=== PATIENT | female | born 1955 | race Caucasian/White ===

== ENCOUNTER → 2016-10-14 | Outpatient (CLI) | payer BC ==
[~2016-10-14] MED LIST: ALBUAER2 INH; ASCO10003 PO; ASPI81TA28 PO; ATOR-26 PO; B-COCAP2 PO; CALCTAB65 PO; CLOP1TAB15 PO; LEVO100T PO; LISI2.5T5 PO; LOSA50TA6 PO; METO50TA16 PO; METO50TA7 PO; MULTTAB58 PO; NAPR1TAB9 PO; NTRGSL/4 UT; OMEG10007 PO; PLAVIX75 PO; SERT1TAB68 PO; SERT50TA PO
[2016-10-14 13:17] LABS: CHOLESTEROL/HDL RATIO 3.6
== END | disposition home or self-care (01) ==
LOC: C.LABPVFM 09:25
PROVIDERS: ATTEND Internal Medicine Cardiovascular Disease
DX: E78.00 Pure hypercholesterolemia, unspecified (principal)

== ENCOUNTER → 2016-10-20 | Outpatient (CLI) | payer BC ==
[2016-10-20 12:53] LABS: BLOOD UREA NITROGEN 16 mg/dl (7-18); CALCIUM 9.5 mg/dl (8.5-10.1); CARBON DIOXIDE 30 mmol/L (21-32); CHLORIDE 106 mmol/L (98-107); CREATININE 0.93 mg/dl (0.60-1.20); GLUCOSE 103 mg/dl (70-99); POTASSIUM 4.5 mmol/L (3.5-5.1); SODIUM 140 mmol/L (136-145)
== END | disposition home or self-care (01) ==
LOC: C.LABPVFM 10:42
PROVIDERS: ATTEND Nurse Practitioner
DX: E03.9 Hypothyroidism, unspecified (principal); R94.30 Abnormal result of cardiovascular function study, unspecified

== ENCOUNTER → 2017-02-16 | Day surgery (SDC) | payer BC ==
[2017-02-05 11:32] VITALS: Ht 163.8 cm; Wt 79.5 kg
[~2017-02-16] VITALS: Ht 163.8 cm; Wt 79.5 kg
[~2017-02-16] MED LIST changes: -CALCTAB65 PO; +LIDOCAINE HCL 2% 2 ML VIAL (20MG/ML) ONE; -LISI2.5T5 PO; -METO50TA7 PO; +MIDAZOLAM HCL 1 MG/ML 2ML VIAL ONE; -OMEG10007 PO; -PLAVIX75 PO; +PROPOFOL IV EMULSION 10 MG/ML 20 ML VIAL IV ONE; -SERT1TAB68 PO; +SODIUM CHLORIDE 0.9% 500ML 500 ML IV ONE
--- NOTE | 2017-02-16 11:13 | Endo History and Physical ---
History & Physical Date of Service: Feb 16, 2017. Chief Complaint: Screening Referring Physician: DAVID Aguilar History of Present Illness 62 yo CF who presents for screening colonoscopy. Past Surgical History Hx Cardiac Surgery: Yes (HEART CATH, STENT X1) Hx Internal Defibrillator: No Hx Pacemaker: No Hx Abdominal Surgery: No Hx of Implantable Prosthesis: No Hx Post-Op Nausea and Vomiting: No Hx Cancer Surgery: No Hx Thoracic Surgery: No Hx Orthopedic: No Hx Urinary Tract Surgery: No Family History None Social History Smoking Status: Former Smoker Hx Substance Use: No Hx Alcohol Use: Yes (1 GLASS WINE DAILY) Allergies Coded Allergies: Lisinopril (Verified Allergy, Unknown, COUGH, 02/05/17) Nickel (Verified Allergy, Unknown, SKIN IRRITATION, 02/05/17) Sulfa Antibiotics (Verified Allergy, Unknown, PT DOESN'T REMEMBER REACTION , 02/05/17) Current Medications Reported Home Medications Medications Dose Route/Sig Max Daily Dose Days Date Category Lopressor (Metoprolol Tartrate) 50 Mg Tab 50 Mg PO QAM 02/05/17 Reported Plavix (Clopidogrel Bisulfate) 75 Mg Tab 75 Mg PO QAM 02/05/17 Reported Cozaar (Losartan Potassium) 50 Mg Tab 50 Mg PO QAM 02/05/17 Reported Zoloft (Sertraline Hcl) 50 Mg Tab 50 Mg PO QAM 02/05/17 Reported Aleve (Naproxen) 220 Mg Tab 2 Tabs PO QAM 02/01/15 Reported Nitrostat (Nitroglycerin) 0.4 Mg Tab 0.4 Mg UT UD PRN 02/01/15 Reported Ventolin (Albuterol) Inh 2 Puffs INH QID PRN 01/29/15 Reported Lipitor (Atorvastatin Calcium) 80 Mg Tab 80 Mg PO QAM 01/29/15 Reported Synthroid (Levothyroxine Sodium) 100 Mcg Tab 100 Mcg PO QAM 11/07/13 Reported Aspirin Ec (Aspirin) 81 Mg Tab 81 Mg PO QAM 11/07/13 Reported Multivitamin (Multiple Vitamin) 1 Tab Tab 1 Tab PO QAM 11/07/13 Reported Vitamin C (Ascorbic Acid) 1,000 Mg Tab 1,000 Mg PO QAM 11/07/13 Reported Nephrocaps (Vitamin B Complex/Vit C/Folic Acid) 1 Cap Cap 1 Cap PO QAM 11/07/13 Reported Vital Signs Weight (Kilograms): 79.55 Height (Feet): 5 Height (Inches): 4.5 Date Time Temp Pulse Resp B/P (MAP) Pulse Ox O2 Delivery O2 Flow Rate FiO2 02/16/17 10:06 36.8 76 16 127/68 (87) 94 Room Air Physical Exam General Appearance: WD/WN, no apparent distress Respiratory/Chest: Auscultation: breath sounds normal Cardiovascular: Heart Auscultation: RRR Abdomen: Bowel Sounds: normal Inspection & Palpation: soft, non-distended, no tenderness, guarding & rebound Assessment and Plan Assessment: 62 yo CF who presents for screening colonoscopy. Plan: Proceed with colonoscopy.
--- NOTE | 2017-02-16 11:38 | Discharge Instructions ---
Endoscopy Patient Instructions Date / Procedure(s) Performed Feb 16, 2017. Colonoscopy Allergy Information Coded Allergies: Lisinopril (Verified Allergy, Unknown, COUGH, 02/05/17) Nickel (Verified Allergy, Unknown, SKIN IRRITATION, 02/05/17) Sulfa Antibiotics (Verified Allergy, Unknown, PT DOESN'T REMEMBER REACTION , 02/05/17) Discharge Date / Findings Feb 16, 2017. Colon polyps Rectal polyps Internal hemorrhoids Medication Instructions Stopped Medication(s): Patient was told to stop plavix but she hasn't taken anything this am. OK to resume all medications today as prescribed Reported Home Medications Medications Dose Route/Sig Max Daily Dose Days Date Category Lopressor (Metoprolol Tartrate) 50 Mg Tab 50 Mg PO QAM 02/05/17 Reported Plavix (Clopidogrel Bisulfate) 75 Mg Tab 75 Mg PO QAM 02/05/17 Reported Cozaar (Losartan Potassium) 50 Mg Tab 50 Mg PO QAM 02/05/17 Reported Zoloft (Sertraline Hcl) 50 Mg Tab 50 Mg PO QAM 02/05/17 Reported Aleve (Naproxen) 220 Mg Tab 2 Tabs PO QAM 02/01/15 Reported Nitrostat (Nitroglycerin) 0.4 Mg Tab 0.4 Mg UT UD PRN 02/01/15 Reported Ventolin (Albuterol) Inh 2 Puffs INH QID PRN 01/29/15 Reported Lipitor (Atorvastatin Calcium) 80 Mg Tab 80 Mg PO QAM 01/29/15 Reported Synthroid (Levothyroxine Sodium) 100 Mcg Tab 100 Mcg PO QAM 11/07/13 Reported Aspirin Ec (Aspirin) 81 Mg Tab 81 Mg PO QAM 11/07/13 Reported Multivitamin (Multiple Vitamin) 1 Tab Tab 1 Tab PO QAM 11/07/13 Reported Vitamin C (Ascorbic Acid) 1,000 Mg Tab 1,000 Mg PO QAM 11/07/13 Reported Nephrocaps (Vitamin B Complex/Vit C/Folic Acid) 1 Cap Cap 1 Cap PO QAM 11/07/13 Reported Provider Instructions Activity Restrictions - No exercising or heavy lifting for 24 hours. - Do not drink alcohol the day of the procedure. - Do not drive a car or operate machinery until the day after the procedure. - Do not make any important decisions or sign important papers in 24 hours after the procedure. Following Day: - Return to full activity which may include returning to work/school. Diet Start your diet with liquids and light foods (jello, soup, juice, toast). Then eat your usual diet if not nauseated. Treatment For Common After Affects For mild abdominal pain, bloating, or excessive gas: - Rest - Eat lightly - Lie on right side Follow-Up Information Follow-up with DAVID Aguilar as scheduled Anesthesia Information What You Should Know You have had a procedure that required some medicine to reduce anxiety and discomfort. This treatment is called moderate sedation. After receiving the treatment, you may be sleepy, but you will be able to breathe on your own. The effects of the treatment may last for several hours. Follow these instructions along with Activity/Diet recommendations noted above: * Do NOT do anything where dizziness or clumsiness would be dangerous. * Rest quietly at home today, then you can be up and about tomorrow. * Have a responsible person stay with you the rest of today. * You may have had an I.V. today. If so, you may take the dressing off later today. Recommendations Call your doctor if: * Trouble breathing * Continuous vomiting for more than 24 hours * Temperature above 101 degrees * Severe abdominal pain or bloating * Pain not relieved by pain medicine ordered * There is increased drainage or redness from any incision * A large amount of rectal bleeding greater than 2-3 tablespoons. (If you had a polyp/s removed or have hemorrhoids, a small amount of blood - from the rectum is to be expected.) * You have any unanswered questions or concerns. IN THE EVENT OF A SERIOUS EMERGENCY, GO TO THE NEAREST EMERGENCY ROOM Your discharge instructions were prepared by provider Saravanan Greene. Patient Instructions Signature Page Maureen Vang Patient (or Guardian) Signature/Date: I have read and understand the instructions given to me by my caregivers. Caregiver/RN/Doctor Signature/Date: The above-named patient and/or guardian has received patient instructions on this date. + Original Patient Signature Page (only) stays with chart. Please make copy for patient.
--- NOTE | 2017-02-16 11:46 | GI REPORT ---
Procedure Date: 02/16/2017 11:17 AM Procedure: Colonoscopy Indications: Screening for colorectal malignant neoplasm Medicines: Monitored Anesthesia Care Complications: No immediate complications. Estimated Blood Loss: Estimated blood loss: none. Procedure: Pre-Anesthesia Assessment: - Prior to the procedure, a History and Physical was performed, and patient medications and allergies were reviewed. The patient's tolerance of previous anesthesia was also reviewed. The risks and benefits of the procedure and the sedation options and risks were discussed with the patient. All questions were answered, and informed consent was obtained. Prior Anticoagulants: The patient last took aspirin 1 day and Plavix (clopidogrel) 7 days prior to the procedure. ASA Grade Assessment: III - A patient with severe systemic disease. After reviewing the risks and benefits, the patient was deemed in satisfactory condition to undergo the procedure. After I obtained informed consent, the scope was passed under direct vision. Throughout the procedure, the patient's blood pressure, pulse, and oxygen saturations were monitored continuously. The scope was introduced through the anus and advanced to the terminal ileum. The colonoscopy was performed without difficulty. The patient tolerated the procedure well. The quality of the bowel preparation was good. The terminal ileum, ileocecal valve, appendiceal orifice, and rectum were photographed. Findings: Two sessile polyps were found in the descending colon and in the ascending colon. The polyps were 3 to 4 mm in size. These polyps were removed with a cold snare. Resection and retrieval were complete. Two sessile polyps were found in the rectum. The polyps were 2 to 3 mm in size. These polyps were removed with a cold biopsy forceps. Resection and retrieval were complete. Non-bleeding internal hemorrhoids were found during retroflexion. The hemorrhoids were small. Impression: - Two 3 to 4 mm polyps in the descending colon and in the ascending colon, removed with a cold snare. Resected and retrieved. - Two 2 to 3 mm polyps in the rectum, removed with a cold biopsy forceps. Resected and retrieved. - Non-bleeding internal hemorrhoids. Recommendation: - Resume previous diet. - Continue present medications. - Repeat colonoscopy for surveillance based on pathology results. - Return to primary care physician as previously scheduled. Saravanan Greene DO 02/16/2017 11:46:18 AM This report has been signed electronically. Note Initiated On: 02/16/2017 11:17 AM I attest to the content of the Intraoperative Record and orders documented therein, exceptions below
--- NOTE | 2017-02-16 12:07 | Anesthesiology Progress Note ---
Anesthesia Post Op Note Date & Time Feb 16, 2017 at 12:07 Vital Signs Pain Intensity: 0 Vital Signs Past 12 Hours Date Time Temp Pulse Resp B/P (MAP) Pulse Ox O2 Delivery O2 Flow Rate FiO2 02/16/17 11:55 73 20 135/74 (94) 96 Room Air 02/16/17 11:43 65 20 98/51 (67) 95 Room Air 02/16/17 10:06 36.8 76 16 127/68 (87) 94 Room Air Notes Mental Status: alert / awake / arousable, participated in evaluation Pt Amnestic to Procedure: Yes Nausea / Vomiting: adequately controlled Pain: adequately controlled Airway Patency, RR, SpO2: stable & adequate BP & HR: stable & adequate Hydration State: stable & adequate Anesthetic Complications: no major complications apparent
[2017-02-16 12:11] VITALS: BP 149/74; PULSE 71; O2SAT 95
== END | disposition home or self-care (01) ==
LOC: C.GI 09:44
PROVIDERS: ATTEND Internal Medicine
DX: Z12.11 Encounter for screening for malignant neoplasm of colon (principal); D12.2 Benign neoplasm of ascending colon; D12.4 Benign neoplasm of descending colon; K62.1 Rectal polyp; K64.8 Other hemorrhoids; Z87.891 Personal history of nicotine dependence; Z79.02 Long term (current) use of antithrombotics/antiplatelets; Z79.82 Long term (current) use of aspirin; Z79.899 Other long term (current) drug therapy

== ENCOUNTER → 2017-02-26 | Outpatient (CLI) | payer BC ==
[~2017-02-26] MED LIST changes: -LIDOCAINE HCL 2% 2 ML VIAL (20MG/ML) ONE; -MIDAZOLAM HCL 1 MG/ML 2ML VIAL ONE; -PROPOFOL IV EMULSION 10 MG/ML 20 ML VIAL IV ONE; -SODIUM CHLORIDE 0.9% 500ML 500 ML IV ONE
--- NOTE | 2017-02-27 07:57 | MAMMOGRAPHY REPORT ---
BILATERAL DIGITAL SCREENING MAMMOGRAM TOMOSYNTHESIS WITH CAD: 02/26/2017 CLINICAL HISTORY: Routine screening. Patient has no complaints. TECHNIQUE: Breast tomosynthesis in addition to standard 2D mammography was performed. Current study was also evaluated with a Computer Aided Detection (CAD) system. COMPARISON: Comparison is made to exams dated: 02/17/2016 mammogram, 02/12/2015 mammogram, 04/28/2013 m ammogram, 02/20/2013 mammogram, 02/20/2012 mammogram, and 02/06/2011 mammogram - [facility]ter. BREAST COMPOSITION: The tissue of both breasts is heterogeneously dense, which may obscure small mas ses. FINDINGS: There is architectural distortion in the 12:00/central right breast, at the site of prior excisional biopsy which yielded benign pathology. There are a few benign-appearing calcifications bi laterally. No suspicious mass, architectural distortion or cluster of microcalcifications is seen. IMPRESSION: ACR BI-RADS CATEGORY 1: NEGATIVE There is no mammographic evidence of malignancy. A 1 year screening mammogram is recommended. The pa tient will receive written notification of the results. Approximately 10% of breast cancers are not detected with mammography. A negative mammographic report should not delay biopsy if a clinically suggestive mass is present. Juanita Hendrix M.D. ay/:02/26/2017 16:05:34 [employer] Operator Concentrate: Luma DARLING(Esvin)(Nettie)(BD), [facility] letter sent: Normal 1/2 BI-RADS Code: ACR BI-RADS Category 1: Negative
== END | disposition home or self-care (01) ==
LOC: C.MAMM 13:09
PROVIDERS: ATTEND Nurse Practitioner
DX: Z12.31 Encounter for screening mammogram for malignant neoplasm of breast (principal)

== ENCOUNTER → 2017-05-26 | Outpatient (CLI) | payer BC ==
[2017-05-26 13:23] LABS: CHOLESTEROL/HDL RATIO 3.2
== END | disposition home or self-care (01) ==
LOC: C.LABPVFM 09:34
PROVIDERS: ATTEND Internal Medicine Cardiovascular Disease
DX: I25.10 Atherosclerotic heart disease of native coronary artery without angina pectoris (principal)

== ENCOUNTER 2017-07-23 13:48 | Emergency (ER) | payer BC ==
[~2017-07-23] VITALS: Ht 162.6 cm; Wt 80.0 kg
[2017-07-23 13:56] VITALS: Ht 162.6 cm; Wt 80.0 kg
[2017-07-23] MEDS ORDERED: KETOROLAC TROMETHAMINE 30 MG/ML VIAL IV STA (14:16)
[2017-07-23] MEDS ORDERED: CEFTRIAXONE SOD INJ 1 GM ADDVIAL IV STA (14:16)
--- NOTE | 2017-07-23 15:02 | DIAGNOSTIC IMAGING REPORT ---
R FINGER(S) MIN 2 VIEWS ROUTINE CLINICAL HISTORY: RIGHT THUMB, CELLULITIS infection COMPARISON: None. DISCUSSION: Generalized soft tissue edema. Subtle lucency assuming a triangular configuration base distal phalanx of the thumb. This is felt to be a nonacute finding. No bony destructive process is appreciated. No abnormal periosteal reaction. IMPRESSION: Soft tissue edema. No acute bony abnormality. No evidence for a bony destructive process. The above report was generated using voice recognition software. It may contain grammatical, syntax or spelling errors. Electronically signed by: Juan R Garrison M.D. 07/23/2017 3:01 PM Dictated Date/Time: 07/23/2017 3:00 PM
[2017-07-23 15:06] LABS: BASO % 0.1 %; BASO ABS # 0.02 K/uL (0-0.2); EOS % 0.1 %; EOS ABS # 0.01 K/uL (0-0.5); HEMOGLOBIN 13.8 g/dL (12.0-16.0); IG# 0.05 K/uL (0.00-0.02); LYMPH % 3.8 %; LYMPH ABS # 0.67 K/uL (1.2-3.4); MEAN CELL VOLUME 93.5 fL (80-100); MEAN CORPUSCULAR HEMOGLOBIN 32.2 pg (25-34); MEAN CORPUSCULAR HGB CONC 34.5 g/dl (32-36); MEAN PLATELET VOLUME 9.7 fL (7.4-10.4); MONO % 7.2 %; MONO ABS # 1.25 K/uL (0.11-0.59); NEUT % 88.5 %; NEUT ABS # 15.41 K/uL (1.4-6.5); PLATELET COUNT 224 K/uL (130-400); RED CELL DISTRIBUTION WIDTH CV 13.6 % (11.5-14.5); RED CELL DISTRIBUTION WIDTH SD 46.1 fL (36.4-46.3); WHITE BLOOD COUNT 17.41 K/uL (4.8-10.8)
[2017-07-23 15:25] LABS: CREATININE 1.09 mg/dl (0.60-1.20); POTASSIUM 3.8 mmol/L (3.5-5.1)
[2017-07-23] MEDS ORDERED: DOXYCYCLINE HYCLATE 100 MG CAP PO ONE (16:15)
[2017-07-23] MEDS ORDERED: HYDROCODONE/ACETAMOPHEN 5/325MG TAB PO STA (16:15)
--- NOTE | 2017-07-23 16:29 | EMERGENCY ROOM VISIT NOTE ---
History First contact with patient: 14:03 Chief Complaint: INFECTION Stated Complaint: INFECTED THUMB, 101 FEVER History of Present Illness Patient is a [id number] 62-year-old white female referred to the emergency department from [facility] for a suspected right thumb infection. largely provides the history. He relates that the patient had developed some pain and swelling in the finger pad of her right thumb yesterday. He states that he noticed a small raised area that he thought may have been an insect bite or a splinter. He poked the area with a pin, but got only bloody drainage, then cleansed the area with hydrogen peroxide. The patient's symptoms markedly worsened overnight. She had difficulty sleeping due to pain. She tried taking ibuprofen, naproxen, and this morning took one Tylenol with Codeine tablet, all with minimal relief of her pain. She presently rates her discomfort a 9/10. She now notes swelling of her entire right thumb, pain that radiates towards her wrist, and pain with range of motion of her thumb or her wrist. She was seen at [facility], and reportedly had a fever of 101F orally while she was there. The provider there elected to send her to the emergency department for further care and evaluation. The patient denies any prior history of skin infections, abscesses or MRSA. She reports an allergy to sulfa medications, but she cannot recall what type of reaction she had. Review of Systems Review of systems as per HPI. All other systems reviewed were negative. 10 systems reviewed. Past Medical/Surgical History Medical Problems: (1) Acute bronchitis (2) Acute bronchitis (3) Bronchitis (4) CAD (coronary artery disease), q[place]angin coronary artery (5) CAD S/P percutaneous coronary angioplasty (6) Fever (7) Hyperlipidemia (8) Hypothyroidism Social History Smoking Status: Never Smoker Marital Status: Occupation Status: employed Current/Historical Medications Scheduled Ascorbic Acid (Vitamin C), 1,000 MG PO QAM Aspirin (Aspirin Ec), 81 MG PO QAM Atorvastatin (Lipitor), 80 MG PO QAM Cephalexin Monohydrate (Keflex), 500 MG PO QID Clopidogrel (Plavix), 75 MG PO QAM Doxycycline Monohydrate (Monodox), 100 MG PO BID Levothyroxine Sodium (Synthroid), 100 MCG PO QAM Losartan Potassium (Cozaar), 50 MG PO QAM Metoprolol Tartrate (Lopressor) (Lopressor), 50 MG PO QAM Multiple Vitamin (Multivitamin), 1 TAB PO QAM Naproxen (Aleve), 2 TABS PO QAM Sertraline Hcl (Zoloft), 50 MG PO QAM Vitamin B Cmplx/Vitc/Folic Ac (Nephrocaps), 1 CAP PO QAM Scheduled PRN Albuterol (Ventolin), 2 PUFFS INH QID PRN for Wheezing Hydrocodone/Acetaminophen 5MG/325MG (Valmora 5MG/325MG), 1-2 TABLETS PO Q4 PRN for Pain Nitroglycerin (Nitrostat), 0.4 MG UT UD PRN for Chest Pain Physical Exam Vital Signs Date Time Temp Pulse Resp B/P (MAP) Pulse Ox O2 Delivery O2 Flow Rate FiO2 07/23/17 17:42 98 14 153/61 90 07/23/17 16:36 38.3 07/23/17 15:30 86 14 130/61 92 Room Air 07/23/17 15:02 94 12 126/67 91 Room Air 07/23/17 15:02 94 12 126/67 91 Room Air 07/23/17 13:56 37.3 99 20 92 Room Air Physical Exam CONSTITUTIONAL: Patient is a well-appearing although slightly sedate 62-year- old white female who is awake and in no apparent distress. She appears to fall sleep easily, and has some intermittent slurring of speech. Her does most of the talking for her. MUSCULOSKELETAL: Examination of the right thumb show a circumferential soft tissue swelling, with erythema, induration and warmth of the palmar aspect of the thumb, particularly the finger pad. There is a very tiny open area at the IP crease, but no active drainage. There is no fluctuance appreciated. The patient has tenderness to palpation of the entire thumb. She can flex and extend slightly, limited by discomfort and soft tissue swelling. Tenderness extends to the MCP joint. The patient has erythema extending to the base of the thumb at the wrist, and has lymphangitic streaking noted to the right antecubital space. The right upper extremity is neurovascularly intact. LYMPH: No lymphadenopathy. Medical Decision & Procedures ER Provider Diagnostic Interpretation: R FINGER(S) MIN 2 VIEWS ROUTINE CLINICAL HISTORY: RIGHT THUMB, CELLULITIS infection COMPARISON: None. DISCUSSION: Generalized soft tissue edema. Subtle lucency assuming a triangular configuration base distal phalanx of the thumb. This is felt to be a nonacute finding. No bony destructive process is appreciated. No abnormal periosteal reaction. IMPRESSION: Soft tissue edema. No acute bony abnormality. No evidence for a bony destructive process. Laboratory Results 07/23/17 14:45 Red Blood Count 4.28, Mean Corpuscular Volume 93.5, Mean Corpuscular Hemoglobin 32.2, Mean Corpuscular Hemoglobin Concent 34.5, Mean Platelet Volume 9.7, Neutrophils (%) (Auto) 88.5, Lymphocytes (%) (Auto) 3.8, Monocytes (%) (Auto) 7.2, Eosinophils (%) (Auto) 0.1, Basophils (%) (Auto) 0.1, Neutrophils # (Auto) 15.41, Lymphocytes # (Auto) 0.67, Monocytes # (Auto) 1.25, Eosinophils # (Auto) 0.01, Basophils # (Auto) 0.02 07/23/17 14:45 Test 07/23/17 14:45 White Blood Count 17.41 K/uL (4.8-10.8) Red Blood Count 4.28 M/uL (4.2-5.4) Hemoglobin 13.8 g/dL (12.0-16.0) Hematocrit 40.0 % (37-47) Mean Corpuscular Volume 93.5 fL (80-100) Mean Corpuscular Hemoglobin 32.2 pg (25-34) Mean Corpuscular Hemoglobin Concent 34.5 g/dl (32-36) Platelet Count 224 K/uL (130-400) Mean Platelet Volume 9.7 fL (7.4-10.4) Neutrophils (%) (Auto) 88.5 % Lymphocytes (%) (Auto) 3.8 % Monocytes (%) (Auto) 7.2 % Eosinophils (%) (Auto) 0.1 % Basophils (%) (Auto) 0.1 % Neutrophils # (Auto) 15.41 K/uL (1.4-6.5) Lymphocytes # (Auto) 0.67 K/uL (1.2-3.4) Monocytes # (Auto) 1.25 K/uL (0.11-0.59) Eosinophils # (Auto) 0.01 K/uL (0-0.5) Basophils # (Auto) 0.02 K/uL (0-0.2) RDW Standard Deviation 46.1 fL (36.4-46.3) RDW Coefficient of Variation 13.6 % (11.5-14.5) Immature Granulocyte % (Auto) 0.3 % Immature Granulocyte # (Auto) 0.05 K/uL (0.00-0.02) Erythrocyte Sedimentation Rate 55 mm/hr (0-21) Anion Gap 6.0 mmol/L (3-11) Est Creatinine Clear Calc Drug Dose 55.5 ml/min Estimated GFR () 63.5 Estimated GFR (Non- 54.7 BUN/Creatinine Ratio 14.9 (10-20) Calcium Level 9.0 mg/dl (8.5-10.1) C-Reactive Protein 5.02 mg/dl (0-0.29) Medications Administered Medications (Trade) Dose Ordered Sig/Ravin Route Start Time Stop Time Status Last Admin Dose Admin Ceftriaxone Sodium (Rocephin Inj) 1 gm NOW STAT IV 07/23/17 14:16 07/23/17 14:19 DC 07/23/17 14:59 1 GM Ketorolac Tromethamine (Toradol Inj) 30 mg NOW STAT IV 07/23/17 14:16 07/23/17 14:19 DC 07/23/17 14:59 30 MG Doxycycline Hyclate (Vibramycin Cap) 100 mg ONE ONCE PO 07/23/17 16:15 07/23/17 16:16 DC 07/23/17 17:18 100 MG Acetaminophen/ Hydrocodone Bitart (Valmora 5/325 Tab) 1 tab NOW STAT PO 07/23/17 16:15 07/23/17 16:16 DC 07/23/17 17:20 1 TAB Acetaminophen (Tylenol Tab) 650 mg NOW STAT PO 07/23/17 16:44 07/23/17 16:46 DC 07/23/17 17:19 650 MG ED Course The patient was seen and examined as above. Her old records were reviewed. IV lock was initiated. She was medicated with Toradol 30 mg IV for discomfort, and given Rocephin 1 g IV empirically. CBC with differential, BMP, sedimentation rate and CMP were drawn. X-rays of the right thumb were obtained , noting soft tissue only without acute bony abnormality. The patient's laboratory studies did note a leukocytosis of 17,000, with left shift and bandemia. Sedimentation rate 55, CRP is 5.02. Electrolytes are within normal limits. The patient was reassessed. She reported little relief of her discomfort with the IV Toradol, and was given one Valmora tablet orally for discomfort. At this time I did recheck the patient's temperature and she was febrile at 38.3C orally. She was given acetaminophen 650 mg orally with her Valmora for the antipyretic effect. After reviewing the patient with attending physician, she will also be placed on doxycycline for MRSA coverage. Treatment recommendations were discussed with the patient and her at length. At this point, as she has yet to have been treated with any antibiotics , it was felt reasonable that she was a good candidate for outpatient antibiotic therapy. She was encouraged to apply warm compresses, elevate the arm for pain and swelling, and will be placed on Keflex and doxycycline. There is no obvious abscess that appears amenable to I&D, and no drainage to culture at this time. Her exam is not consistent with an infectious tenosynovitis. She was advised to return to the emergency department or follow-up with her primary care physician in 48 hours for a recheck, return to the ED sooner for worsening symptoms. They expressed understanding of this and were agreeable. The patient was discharged home with her in stable condition. Medical Decision See ED Course. [facility] Monitoring Program Search Results: patient reviewed within database, no issues identified Medication Reconcilliation Current Medication List: was personally reviewed by me Blood Pressure Screening Patient's blood pressure: Normal blood pressure Blood pressure disposition: Did not require urgent referral Impression Primary Impression: Cellulitis of right thumb Departure Information Prescriptions Hydrocodone/Acetaminophen 5MG/325MG (Valmora 5MG/325MG) Tab 1-2 TABLETS PO Q4 Y for Pain, #15 TAB For Initial Treatment Prov: Cindy Khan PA 07/23/17 Doxycycline Monohydrate (Monodox) 100 Mg Cap 100 MG PO BID, #20 CAP Prov: Cindy Khan PA 07/23/17 Cephalexin Monohydrate (KEFLEX) 500 Mg Cap 500 MG PO QID, #40 CAP Prov: Cindy Khan PA 07/23/17 Referrals Carmen Flores C.R.N.P (PCP) Patient Instructions My [facility] Additional Instructions DO NOT drive, drink alcohol, operate machinery, or perform dangerous activities today. You were given medications in the ER that can affect your ability to safely function or operate a vehicle. Hydrocodone/Acetaminophen (Valmora) 5/325 mg: Take 1-2 pills every four hours for breakthrough pain. Avoid alcohol, operating machinery or dangerous equipment, working on ladders or roofs, DRIVING, or situations where being under the influence may be dangerous. It is recommended to use an [id number] stool softener such as Colace, 100mg twice daily while taking this medication to avoid constipation. Cephalexin(Keflex) 500mg: Take one pill four times daily for 10 days for your skin infection. All antibiotics can cause diarrhea. If this occurs and you feel worse or it does not resolve in 1-2 days follow up with your doctor or return to the Emergency Department as this could be signs of serious underlying problems. Any medication can cause an allergic reaction, stop the pills immediately and return to the ER for rash, hives, breathing difficulties, or swelling. Doxycycline 100mg: Take one pill twice daily for seven days for your infection. Take with food, but avoid dairy. Avoid prolonged sun exposure since this medication makes you temporarily more susceptible to sunburns. All antibiotics can cause diarrhea. If this occurs and you feel worse or it does not resolve in 1-2 days follow up with your doctor or return to the Emergency Department as this could be signs of serious underlying problems. Any medication can cause an allergic reaction, stop the pills immediately and return to the ER for rash, hives, breathing difficulties, or swelling. Ibuprofen(Motrin, Advil) may be used for fever or pain. Use 600mg every six hours as needed. Take with food. Avoid using more than 2400mg in a 24 hour period. Do not use 2400mg per day for more than three consecutive days without physician direction. Prolonged inappropriate use can lead to stomach upset or ulcers. (AND/OR) Acetaminophen(Tylenol) may be used for fever or pain. Use 1000mg every six hours as needed. Avoid using more than 3000mg in a 24 hour period. Warm compresses to the affected area 4 times daily for 15-20 minutes. Elevate for pain and swelling. Rest and drink plenty of fluids. Continue current medications. Return to the ER for severe pain, persistent fevers, spreading redness, or any worsening of your condition. Follow up with your primary physician in 2 days for a recheck of the current condition. If you are unable to be rechecked at your primary care physician's office by Sunday, return to the ED for recheck.
[2017-07-23] MEDS ORDERED: HYDR-5688 PO (16:35)
[2017-07-23] MEDS ORDERED: DOXY100C76 PO (16:35)
[2017-07-23] MEDS ORDERED: CEPH500C2 PO (16:35)
[2017-07-23 16:36] VITALS: TEMP 38.3
[2017-07-23] MEDS ORDERED: ACETAMINOPHEN 325 MG TAB PO STA (16:44)
[2017-07-23 17:42] VITALS: BP 153/61; PULSE 98; O2SAT 90
[2017-07-24] MEDS ORDERED: B-CO1CAP17 PO (11:17)
[2017-07-24] MEDS ORDERED: VNTHFA/IN INH (11:17)
[2017-07-24] MEDS ORDERED: METO-452 PO (13:22)
== END 2017-07-23 17:30 | disposition home or self-care (01) ==
LOC: C.EDB 13:50 → C.EDA 17:30
DX: L03.011 Cellulitis of right finger (principal); I25.10 Atherosclerotic heart disease of native coronary artery without angina pectoris; E78.5 Hyperlipidemia, unspecified; E03.9 Hypothyroidism, unspecified; Z79.82 Long term (current) use of aspirin

== ENCOUNTER 2017-07-24 10:01 | Inpatient (IN) | payer BC ==
[~2017-07-24] VITALS: Ht 162.6 cm; Wt 80.4 kg
[2017-07-24] VITALS (7 sets, daily range): BP systolic 121–123; BP diastolic 63–71; PULSE 85–105; TEMP 37.9–39.2; O2SAT 88–97; Ht 162.6 cm; Wt 80.4 kg
[~2017-07-24 10:01] MED LIST changes: +CEPH500C2 PO; +DOXY100C76 PO; +HYDR-5688 PO
[2017-07-24] MEDS ORDERED: MoRPHine SULFATE 4 MG/ML 1 ML CARP\\VIAL IV STA (10:21)
[2017-07-24] MEDS ORDERED: ONDANSETRON INJ 2 MG/ML 2 ML VIAL IV STA (10:21)
[2017-07-24] MEDS ORDERED: PIPERACILLIN/TAZOBACTAM 4.5 GM/100ML D5W IV STA (10:25)
[2017-07-24] MEDS ORDERED: DAPTOmycin IV 480 MG in SODIUM CHLORIDE 0.9% 50ML 50 ML IV ONE (10:30)
[2017-07-24] MEDS ORDERED: SODIUM CHLORIDE 0.9% 1000ML 1,000 ML IV ONE (10:30)
[2017-07-24 10:59] LABS: BASO % 0.1 %; BASO ABS # 0.02 K/uL (0-0.2); HEMATOCRIT 37.2 % (37-47); HEMOGLOBIN 12.8 g/dL (12.0-16.0); IG# 0.09 K/uL (0.00-0.02); LYMPH % 3.3 %; LYMPH ABS # 0.71 K/uL (1.2-3.4); MEAN CELL VOLUME 92.8 fL (80-100); MEAN CORPUSCULAR HEMOGLOBIN 31.9 pg (25-34); MEAN CORPUSCULAR HGB CONC 34.4 g/dl (32-36); MEAN PLATELET VOLUME 9.6 fL (7.4-10.4); MONO % 4.8 %; MONO ABS # 1.02 K/uL (0.11-0.59); NEUT % 91.4 %; NEUT ABS # 19.39 K/uL (1.4-6.5); PLATELET COUNT 242 K/uL (130-400); RED CELL DISTRIBUTION WIDTH CV 13.6 % (11.5-14.5); RED CELL DISTRIBUTION WIDTH SD 46.5 fL (36.4-46.3); WHITE BLOOD COUNT 21.23 K/uL (4.8-10.8)
[2017-07-24] MEDS ORDERED: B-CO1CAP17 PO (11:17)
[2017-07-24] MEDS ORDERED: VNTHFA/IN INH (11:17)
[2017-07-24 11:21] LABS: CALCIUM 8.7 mg/dl (8.5-10.1); CREATININE 1.08 mg/dl (0.60-1.20); POTASSIUM 3.6 mmol/L (3.5-5.1)
[2017-07-24] MEDS ORDERED: ONDANSETRON INJ 2 MG/ML 2 ML VIAL IV PRN (12:45)
[2017-07-24] MEDS ORDERED: POLYETHYLENE (MIRALAX) 17 GM PACK PO PRN (12:45)
[2017-07-24] MEDS ORDERED: VANCOMYCIN CONSULT ACTIVE PRN (12:45)
[2017-07-24] MEDS ORDERED: MAGNESIUM HYDROXIDE SUSP 30 ML UDC PO PRN (12:45)
[2017-07-24] MEDS ORDERED: PIPERACILL/TAZOBAC CONSULT ACTIVE PRN (12:45)
--- NOTE | 2017-07-24 13:05 | EMERGENCY ROOM VISIT NOTE ---
ED Visit Note First contact with patient: 10:08 Chief Complaint: My infection is worsening. History of Present Illness: Ms. Vang is a 62-year-old white female who ambulates into the ED accompanied by her complaining of worsening sialitis. A she was seen in this emergency department yesterday and was diagnosed with right hand cellulitis with forearm lymphangitis. She was discharged home on Keflex and doxycycline. Patient reports upon awaking this morning she noted increasing pain in her right hand and worsening lymphangitis upper forearm; she reports the redness is spreading outward and is now also over the posterior hand and radiating up the ulnar aspect of the arm. Currently she describes her pain as a combination of sharp, pressure and throbbing. She rates her discomfort 9/10. Her pain is nonradiating. Her pain worsens with all palpation of the thumb, the palmar aspect of the hand predominately over the thenar eminence and flexion and extension of the first MCP and interphalangeal joints. She has not identified any alleviating factors related to the pain. She reports she's been taking her ibuprofen and her prescribed hydrocodone without relief of her discomfort. Associated with her pain she reports she's had some chills and feels like she might of had a fever this morning but did not check her temperature, she had noted that he decreased appetite and some mild numbness throughout the thumb. She also noted a darkening kin lesion over the posterior aspect of the interphalangeal joint/distal phalanx. She denies other skin eruptions, other skin color changes, headache, dizziness, lightheadedness, chest pain, shortness of breath, abdominal pain, nausea, vomiting. Additionally patient's reports that she has been in such severe pain she has not been able to sleep the last 2 nights. Review of Systems: As noted above in history of present illness. All body systems were reviewed and found to be negative as noted above. Past Medical History: As previously noted, bronchitis, coronary artery disease, angioplasty, dyslipidemia, hypothyroidism. Current Medications: Medications Dose Route/Sig Max Daily Dose Days Date Category Dose Instructions Ventolin Hfa (Albuterol) 200 Puffs/97323 Mcg Aers 2-4 Puffs INH Q6H PRN 07/24/17 Reported Nephrocaps (Vitamin B Complex/Vit C/Folic Acid) Cap 1 Cap PO BID 07/24/17 Reported [place] 5MG/325MG (Acetaminophen/Hydrocodone Bitart) Tab 1-2 Tablets PO Q4 PRN 07/23/17 Rx For Initial Treatment Monodox (Doxycycline Monohydrate) 100 Mg Cap 100 Mg PO BID 07/23/17 Rx Keflex (Cephalexin Monohydrate) 500 Mg Cap 500 Mg PO QID 07/23/17 Rx Lopressor (Metoprolol Tartrate) 50 Mg Tab 50 Mg PO QAM 02/05/17 Reported Plavix (Clopidogrel Bisulfate) 75 Mg Tab 75 Mg PO QAM 02/05/17 Reported Cozaar (Losartan Potassium) 50 Mg Tab 50 Mg PO QAM 02/05/17 Reported Zoloft (Sertraline Hcl) 50 Mg Tab 50 Mg PO QAM 02/05/17 Reported Aleve (Naproxen) 220 Mg Tab 2 Tabs PO QAM 02/01/15 Reported Nitrostat (Nitroglycerin) 0.4 Mg Tab 0.4 Mg UT UD PRN 02/01/15 Reported Lipitor (Atorvastatin Calcium) 80 Mg Tab 80 Mg PO QAM 01/29/15 Reported Synthroid (Levothyroxine Sodium) 100 Mcg Tab 100 Mcg PO QAM 11/07/13 Reported Aspirin Ec (Aspirin) 81 Mg Tab 81 Mg PO QAM 11/07/13 Reported Multivitamin (Multiple Vitamin) 1 Tab Tab 1 Tab PO QAM 11/07/13 Reported Vitamin C (Ascorbic Acid) 1,000 Mg Tab 1,000 Mg PO QAM 11/07/13 Reported Allergies to Medications: Lisinopril, sulfa. Social History: Patient is currently employed; she feels safe in her home environment; she denies tobacco use and admits to social alcohol use. Physical Examination: Vital Signs: Date Time Temp Pulse Resp B/P (MAP) Pulse Ox O2 Delivery O2 Flow Rate FiO2 07/24/17 12:20 95 Nasal Cannula 2.0 07/24/17 12:18 78 20 104/52 88 Room Air 07/24/17 10:05 37.5 94 20 105/60 91 Room Air GENERAL: 62-year-old female in moderate distress due to pain, nontoxic-appearing , afebrile and hemodynamically stable. NEUROLOGICAL: Awake, alert and oriented to person, place and time. Answering questions appropriately and following commands. Good hand eye coordination. SKIN: Warm, dry and pink. Right Upper Extremity: No gross bony deformity. No tenderness in the elbow. Mild tenderness over the anterior forearm in the location of her lymphangitis. The hand shows circumferential erythema and edema of the thumb which extends into the palmar aspect of the thumb involving a hyper thenar eminence. There is also some mild erythema and mild swelling over the posterior hand. She does have worsening lymphangitis around the lateral aspects that were defined yesterday. She also has in the dark in color lesion over the posterior aspect of the thumb in the area of the interphalangeal joint and distal flange. HEENT: Atraumatic and normocephalic. PERRLA. Sclera white and conjunctiva pink. No drainage from naris. Oral cavity moist and pink. Pharynx is nonerythematous or edematous. Speech normal. No lymphadenopathy. Trachea midline. No jugular venous distention. BACK: No tenderness over the bony spine. No CVA tenderness. THORAX: Lungs sounds are clear to auscultation and equal bilaterally with symmetrical chest wall. No wheezing, rales or rhonchi. No crepitus, tenderness , subcutaneous air or deformities noted. HEART: Regular rate and rhythm. No gallops, rubs or murmurs are appreciated. ABDOMEN: Flat, soft and nontender. Positive bowel sounds in all quadrants. No guarding, rigidity or organomegaly. RIGHT UPPER EXTREMITY: Please note description of infection under SKIN. No gross bony deformity. Patient does have full range of motion in flexion and extension of the elbow and pronation of the supination of the forearm. She has decreased range of motion due to pain and swelling of the wrist and all movements and the thumb in all movements. The other fingers have full range of motion at the DIP, PIP and interphalangeal joints. She does have decreased sensation in the thumb that she describes as a moderate numbness sensation. The rest of the fingers are sensory intact. Capillary refill is brisk in all fingers including the thumb. ED Course: Patient is assessed as noted above. Patient's medication list was reviewed. Laboratory Testing: Test 07/24/17 10:40 07/24/17 10:59 07/24/17 12:58 Range/Units White Blood Count 21.23 4.8-10.8 K/uL Red Blood Count 4.01 4.2-5.4 M/uL Hemoglobin 12.8 12.0-16.0 g/dL Hematocrit 37.2 37-47 % Mean Corpuscular Volume 92.8 80-100 fL Mean Corpuscular Hemoglobin 31.9 25-34 pg Mean Corpuscular Hemoglobin Concent 34.4 32-36 g/dl Platelet Count 242 130-400 K/uL Mean Platelet Volume 9.6 7.4-10.4 fL Neutrophils (%) (Auto) 91.4 % Lymphocytes (%) (Auto) 3.3 % Monocytes (%) (Auto) 4.8 % Eosinophils (%) (Auto) 0.0 % Basophils (%) (Auto) 0.1 % Neutrophils # (Auto) 19.39 1.4-6.5 K/uL Lymphocytes # (Auto) 0.71 1.2-3.4 K/uL Monocytes # (Auto) 1.02 0.11-0.59 K/uL Eosinophils # (Auto) 0.00 0-0.5 K/uL Basophils # (Auto) 0.02 0-0.2 K/uL RDW Standard Deviation 46.5 36.4-46.3 fL RDW Coefficient of Variation 13.6 11.5-14.5 % Immature Granulocyte % (Auto) 0.4 % Immature Granulocyte # (Auto) 0.09 0.00-0.02 K/uL Erythrocyte Sedimentation Rate 72 0-21 mm/hr Sodium Level 133 136-145 mmol/L Potassium Level 3.6 3.5-5.1 mmol/L Chloride Level 99 98-107 mmol/L Carbon Dioxide Level 26 21-32 mmol/L Anion Gap 8.0 3-11 mmol/L Blood Urea Nitrogen 18 7-18 mg/dl Creatinine 1.08 0.60-1.20 mg/dl Est Creatinine Clear Calc Drug Dose 56.7 ml/min Estimated GFR () 64.2 Estimated GFR (Non- 55.4 BUN/Creatinine Ratio 16.3 10-20 Random Glucose 129 70-99 mg/dl Calcium Level 8.7 8.5-10.1 mg/dl Bedside Lactic Acid Venous 1.49 0.90-1.70 mmol/L Blood Culture: Pending Patient was hydrated with normal saline and received 4 mg of morphine IV for pain and 4 mg of Zofran IV. Patient was given 4.5 g of Zosyn IV and 480 mg of daptomycin IV for antibiotic coverage. Patient was reassessed multiple times during his stay in the emergency department. Patient's case was reviewed with Dr. Paige; we agreed on diagnostic approach , treatment, disposition and plan. During patient's stay nurses noted that the patient was hypoxic and she was started on nasal cannula oxygen. Patient's case was consulted with case management and Dr. Chirinos, [facility] hospitalist; for medical observation/admission. Patient was educated about today's findings. Clinical Impression: Right hand/thumb cellulitis. Failed outpatient antibiotic therapy. Decision-Making: Roxanna my differential diagnosis I considered cellulitis, abscess, tenosynovitis and other causes. Disposition and Plan: Patient be brought in the hospital by the hospitalist; please see their notes and orders for final disposition and plan.
[2017-07-24] MEDS ORDERED: METO-452 PO (13:22)
--- NOTE | 2017-07-24 13:26 | History and Physical ---
History & Physical Date & Time of Service: Jul 24, 2017 at 12:47 Chief Complaint: Infected Hand Primary Care Physician: Carmen Flores C.R.N.P History of Present Illness Source: patient, family Pt is a 62 yo female with a h/o CAD s/p SARAH to LAD 01/2015, HTN, HL, hypothyroidism, SI joint pain, and left hemifacial spasm, who presents to the ER for the second time in 2 days for right thumb/hand pain and swelling, along with fever. She reports noticing a small pimple on pad of right thumb 2 days ago , then she began having redness and swelling, pain, and fever. She was seen by PCP yesterday who referred her to the ER on 07/23. She had xrays which were neg for OM, was given IV Rocephin, had a WBC count of 17k, and was discharged to home on po keflex and doxycycline. She then developed worsening erythema spreading up her arm and continued fevers at home. In the ER today, her white count was up to 22,000, she was tachycardic in the mid 90s. She was given IV daptomycin and IV Zosyn, along with morphine. She became mildly hypoxic at 88%-the states that the patient snores and has not been checked out for sleep apnea. 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 PSH: Stereotactic breast biopsy Family History Noncontributory Social History Smoking Status: Former Smoker (smoked 15 pack years, quit at age 36) Alcohol Use: drinks one drink daily Drug Use: none Marital Status: (and has 2 children) Housing status: lives with significant other Occupational Status: employed (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[employer]) Multi-Drug Resistant Organisms History of MDRO: No Allergies Coded Allergies: Lisinopril (Verified Allergy, Unknown, COUGH, 07/24/17) Nickel (Verified Allergy, Unknown, SKIN IRRITATION, 07/24/17) Sulfa Antibiotics (Verified Allergy, Unknown, PT DOESN'T REMEMBER REACTION , 07/24/17) Home Medications Scheduled Ascorbic Acid (Vitamin C), 1,000 MG PO QAM Aspirin (Aspirin Ec), 81 MG PO QAM Atorvastatin (Lipitor), 80 MG PO QAM Cephalexin Monohydrate (Keflex), 500 MG PO QID Clopidogrel (Plavix), 75 MG PO QAM Doxycycline Monohydrate (Monodox), 100 MG PO BID Levothyroxine Sodium (Synthroid), 100 MCG PO QAM Losartan Potassium (Cozaar), 50 MG PO QAM Metoprolol Tartrate (Lopressor) (Lopressor), 50 MG PO QAM Multiple Vitamin (Multivitamin), 1 TAB PO QAM Naproxen (Aleve), 2 TABS PO QAM Sertraline Hcl (Zoloft), 50 MG PO QAM Vitamin B Cmplx/Vitc/Folic Ac (Nephrocaps), 1 CAP PO BID Scheduled PRN Albuterol Hfa (Ventolin Hfa), 2-4 PUFFS INH Q6H PRN for SOB/Wheezing Hydrocodone/Acetaminophen 5MG/325MG ([place] 5MG/325MG), 1-2 TABLETS PO Q4 PRN for Pain Nitroglycerin (Nitrostat), 0.4 MG UT UD PRN for Chest Pain Review of Systems Constitutional: + fever, + chills Eyes: No problem reported ENT: No sore throat Respiratory: No cough, No shortness of breath Cardiovascular: No chest pain, No edema Abdomen: No pain, No nausea, No vomiting, No diarrhea, No constipation, No GI bleeding Musculoskeletal: + joint pain (in the right thumb and hand) Genitourinary - Female: No problem reported Neurologic: No problem reported Psychiatric: No problem reported Endocrine: No problem reported Hematologic / Lymphatic: No problem reported Integumentary: + color change (erythema of the hand and arm as per history of present illness) Allergic / Immunologic: No problem reported Physical Exam Vital Signs Date Time Temp Pulse Resp B/P (MAP) Pulse Ox O2 Delivery O2 Flow Rate FiO2 07/24/17 12:20 95 Nasal Cannula 2.0 07/24/17 12:18 78 20 104/52 88 Room Air 07/24/17 10:05 37.5 94 20 105/60 91 Room Air General Appearance: WD/WN, no apparent distress, + pertinent finding (drowsy but wakes up easily to answer questions) Head: normocephalic, atraumatic Eyes: normal inspection, sclerae normal ENT: hearing grossly normal, pharynx normal Neck: supple, trachea midline Respiratory/Chest: lungs clear, normal breath sounds, no respiratory distress, no accessory muscle use Cardiovascular: regular rate, rhythm, no edema, no gallop, no JVD, no murmur, normal peripheral pulses Abdomen/GI: normal bowel sounds, non tender, soft, no organomegaly, no pulsatile mass Back: normal inspection Extremities/Musculoskelatal: + pertinent finding (right thumb with hemorrhagic bulla on the dorsal aspect of the IP joint, entire thumb with significant edema , not able to flex IP joint, with very minimal adduction of the thumb, also with moderate edema and erythema of the hand and wrist, with positive tenderness to palpation over the bony prominences of the wrist, erythema spreads up the dorsal forearm to the antecubital fossa) Neurologic/Psych: normal mood/affect, oriented x 3 Skin: + rash (as above) Lymphatic: + pertinent finding (+small CHANTAL in right axilla that is tender) Diagnostics Laboratory Results Results Past 24 Hours Test 07/24/17 10:40 07/24/17 10:59 Range/Units White Blood Count 21.23 4.8-10.8 K/uL Red Blood Count 4.01 4.2-5.4 M/uL Hemoglobin 12.8 12.0-16.0 g/dL Hematocrit 37.2 37-47 % Mean Corpuscular Volume 92.8 80-100 fL Mean Corpuscular Hemoglobin 31.9 25-34 pg Mean Corpuscular Hemoglobin Concent 34.4 32-36 g/dl Platelet Count 242 130-400 K/uL Mean Platelet Volume 9.6 7.4-10.4 fL Neutrophils (%) (Auto) 91.4 % Lymphocytes (%) (Auto) 3.3 % Monocytes (%) (Auto) 4.8 % Eosinophils (%) (Auto) 0.0 % Basophils (%) (Auto) 0.1 % Neutrophils # (Auto) 19.39 1.4-6.5 K/uL Lymphocytes # (Auto) 0.71 1.2-3.4 K/uL Monocytes # (Auto) 1.02 0.11-0.59 K/uL Eosinophils # (Auto) 0.00 0-0.5 K/uL Basophils # (Auto) 0.02 0-0.2 K/uL RDW Standard Deviation 46.5 36.4-46.3 fL RDW Coefficient of Variation 13.6 11.5-14.5 % Immature Granulocyte % (Auto) 0.4 % Immature Granulocyte # (Auto) 0.09 0.00-0.02 K/uL Erythrocyte Sedimentation Rate 72 0-21 mm/hr Sodium Level 133 136-145 mmol/L Potassium Level 3.6 3.5-5.1 mmol/L Chloride Level 99 98-107 mmol/L Carbon Dioxide Level 26 21-32 mmol/L Anion Gap 8.0 3-11 mmol/L Blood Urea Nitrogen 18 7-18 mg/dl Creatinine 1.08 0.60-1.20 mg/dl Est Creatinine Clear Calc Drug Dose 56.7 ml/min Estimated GFR () 64.2 Estimated GFR (Non- 55.4 BUN/Creatinine Ratio 16.3 10-20 Random Glucose 129 70-99 mg/dl Calcium Level 8.7 8.5-10.1 mg/dl Bedside Lactic Acid Venous 1.49 0.90-1.70 mmol/L Microbiology Results 07/24/17 Blood Culture, Received Pending 07/24/17 Blood Culture, Received Pending Diagnostic Radiology Right Hand X-ray from 07/23 reviewed and no bony distruction, there is positive soft tissue edema Impression Assessment and Plan Pt is a 62 yo female with a h/o CAD s/p SARAH to LAD 01/2015, HTN, HL, hypothyroidism, SI joint pain, and left hemifacial spasm, who presents to the ER for the second time in 2 days for right thumb/hand pain and swelling, along with fever. She reports noticing a small pimple on pad of right thumb 2 days ago , then she began having redness and swelling, pain, and fever. She was seen by PCP yesterday who referred her to the ER on 07/23. She had xrays which were neg for OM, was given IV Rocephin, had a WBC count of 17k, and was discharged to home on po keflex and doxycycline. She then developed worsening erythema spreading up her arm and continued fevers at home. In the ER today, her white count was up to 22,000, she was tachycardic in the mid 90s. She was given IV daptomycin and IV Zosyn, along with morphine. She became mildly hypoxic at 88%-the states that the patient snores and has not been checked out for sleep apnea. Right thumb/hand abscess and cellulitis/sepsis-has received resuscitative IV fluids, started on antibiotics, and blood cultures drawn. With leukocytosis, tachycardia-meets criteria for sepsis, blood pressure is stable. -Admit to medical floor -Consulted orthopedic surgeon, Dr. White, whom I spoke with on the phone about the case today -Keep nothing by mouth just in case she will need to go to the operating room today -Continue normal saline at 75 ML's per hour -Follow blood cultures, and if ends up having incision and drainage, will follow wound cultures -Start IV vancomycin, continue IV Zosyn started in the ER -Elevate right upper extremity above the heart -Follow CBC Acute hypoxemic respiratory failure-with history of snoring and received opioid/ sedating medication in the ER, suspect undiagnosed RIOS. -Supplemental oxygen and wean off as tolerated -May need overnight oximetry prior to discharge CAD/hypertension/hyperlipidemia-with history of SARAH to the LAD in 2014. No current symptoms. Follows with [facility] cardiology. -Check ECG now in case of need for surgery -Appreciate cardiology preoperative consultation -Continue Toprol-XL, losartan, aspirin, Plavix, nitroglycerin as needed, and atorvastatin Hypothyroidism-last TSH October 2016 was normal -Continue home dose of levothyroxine -follow up with outpatient management routinely Prophylaxis-SCDs, hold off on chemical prophylaxis until orthopedic surgery sees her to determine if surgery will be needed Disposition-to home when medically stable Full code Level of Care Med/Surg Resuscitation Status FULL RESUSCITATION VTE Prophylaxis VTE Risk Assessment Done? Y/N: Yes Risk Level: Moderate Given or contraindicated: SCD's Additional Copies To Carmen Flores C.R.N.P
[2017-07-24] MEDS ORDERED: ALBUTEROL HFA 8 GM INHALER INH PRN (13:30)
[2017-07-24] MEDS ORDERED: NITROGLYCERIN 0.4 MG SL PER TAB CHARGE UT PRN (13:30)
--- NOTE | 2017-07-24 15:13 | Pharmacy Progress Note ---
Pharmacy Antibiotic Consult Date of Service: Jul 24, 2017. Pharmacy Dosing Scope Pharmacy is consulted to initiate vancomycin/zosyn IV dosing therapy, order appropriate labs and adjust drug dose/frequency. Subjective The patient is a 62 year old female admitted on Jul 24, 2017 at 12:43. Objective Height (Feet): 5 Height (Inches): 4.50 Weight (Kilograms): 80.400 Lab Results (24hrs): Test 07/24/17 10:40 07/24/17 10:59 White Blood Count 21.23 K/uL (4.8-10.8) Red Blood Count 4.01 M/uL (4.2-5.4) Hemoglobin 12.8 g/dL (12.0-16.0) Hematocrit 37.2 % (37-47) Mean Corpuscular Volume 92.8 fL (80-100) Mean Corpuscular Hemoglobin 31.9 pg (25-34) Mean Corpuscular Hemoglobin Concent 34.4 g/dl (32-36) Platelet Count 242 K/uL (130-400) Mean Platelet Volume 9.6 fL (7.4-10.4) Neutrophils (%) (Auto) 91.4 % Lymphocytes (%) (Auto) 3.3 % Monocytes (%) (Auto) 4.8 % Eosinophils (%) (Auto) 0.0 % Basophils (%) (Auto) 0.1 % Neutrophils # (Auto) 19.39 K/uL (1.4-6.5) Lymphocytes # (Auto) 0.71 K/uL (1.2-3.4) Monocytes # (Auto) 1.02 K/uL (0.11-0.59) Eosinophils # (Auto) 0.00 K/uL (0-0.5) Basophils # (Auto) 0.02 K/uL (0-0.2) RDW Standard Deviation 46.5 fL (36.4-46.3) RDW Coefficient of Variation 13.6 % (11.5-14.5) Immature Granulocyte % (Auto) 0.4 % Immature Granulocyte # (Auto) 0.09 K/uL (0.00-0.02) Erythrocyte Sedimentation Rate 72 mm/hr (0-21) Sodium Level 133 mmol/L (136-145) Potassium Level 3.6 mmol/L (3.5-5.1) Chloride Level 99 mmol/L (98-107) Carbon Dioxide Level 26 mmol/L (21-32) Anion Gap 8.0 mmol/L (3-11) Blood Urea Nitrogen 18 mg/dl (7-18) Creatinine 1.08 mg/dl (0.60-1.20) Est Creatinine Clear Calc Drug Dose 56.7 ml/min Estimated GFR () 64.2 Estimated GFR (Non- 55.4 BUN/Creatinine Ratio 16.3 (10-20) Random Glucose 129 mg/dl (70-99) Calcium Level 8.7 mg/dl (8.5-10.1) C-Reactive Protein 28.90 mg/dl (0-0.29) Bedside Lactic Acid Venous 1.49 mmol/L (0.90-1.70) Micro Results: Date/Time Source Procedure Growth Status 07/24/17 10:50 Blood Blood Culture Pending Received 07/24/17 10:40 Blood Blood Culture Pending Received Recent Pertinent Medications 1 x dose rocephin, then prescription for keflex/doxycycline 1 day Assessment & Plan Assessment: 62 yo F presented to ED on 07/23 with R hand cellulitis, forearm lymphangitis discharged with doxycycline/keflex Patient returned today with worsening pain/redness. Patient received 1x dose of daptomycin and zosyn in the ED Starting vancomycin/zosyn for cellulitis. Plan: Will start vancomycin 1/17 AM since daptomycin dose given in ED. Loading dose: 2000 mg (24.8 mg/kg) IV X 1 dose then: 1250 mg (15.5 mg/kg) mg IV every 18 hours. PK: SCr 1.08, CrCl 56.7, Ke 0.051, T1/2~13 hours Goal trough level estimate: between 15-20 mcg/mL. Trough ordered for 07/27 @ 0930. Pharmacy will continue to follow and will adjust dose/frequency as necessary. Thank you
--- NOTE | 2017-07-24 16:20 | CONSULTATION REPORT ---
DATE OF CONSULTATION: 07/24/2017 DATE OF CONSULTATION: 07/24/2017 CHIEF COMPLAINT: Right thumb infection. HISTORY OF PRESENT ILLNESS: Maureen is a 62-year-old right hand dominant female who we were consulted for evaluation of a right thumb and upper extremity infection. She apparently developed a pimple-like appearance on the volar side of the right thumb 2 days ago. No foreign body or bites or scratches that she is aware of. Her symptoms worsened. She presented to the Emergency Department yesterday. She was discharged on Keflex and doxycycline at that time. She did have x-rays at that visit. Her symptoms did worsen throughout yesterday and into today and she came back to the Emergency Department where she was evaluated again and admitted by the hospitalist service. She does complain of fever as well. She was given some IV antibiotics and has been started on vancomycin and Zosyn at this point. It does sound like her symptoms have progressed fairly quickly over the last 2 days. She did have some lab work done as well. Her white count is increased to 21.23 today, sed rate 72 and C-reactive protein is 28.90. At some point, her did try to puncture this area as well thinking she may have a splinter. There are no other complaints at this time. PAST MEDICAL HISTORY: Coronary artery disease, hyperlipidemia, hypertension, hypothyroidism, SI joint arthritis. PAST SURGICAL HISTORY: Include breast biopsy. FAMILY HISTORY: Noncontributory. SOCIAL HISTORY: She previously smoked but has since quit. She drinks alcohol daily. 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 ALLERGIES: LISTED INCLUDE LISINOPRIL, NICKEL, SULFA. MEDICATIONS: Reviewed in the chart include vitamin C, aspirin, Lipitor, Keflex, Plavix, Monodox, Synthroid, Cozaar, Lopressor, multivitamins, Aleve, Zoloft, Nephrocaps, Ventolin, [place], and Nitrostat. REVIEW OF SYSTEMS: Positive for fevers as above. She has some pain in the right thumb and right hand area and some erythema into the arm. Otherwise, review of systems is noncontributory. PHYSICAL EXAMINATION: Today, she is alert, oriented in no distress. Examination of the right hand today she does have generalized swelling of her thumb and hand area including the IP joint area of the thumb and dorsum of her hand. Does extend into the wrist some as far as the edema. She has some erythema, streaking extending up the forearm, particularly on the volar side of the forearm. She has a small puncture area on the volar side of the thumb over the distal phalanx IP joint area. There is no active drainage at this time. There is some darker discoloration across the dorsum of the IP joint of the thumb, blister/bullae type of appearance. She is able to gently flex and extend the PIP joint and move her fingers gently, but has pain with motion of her thumb and fingers. Did not seem to have pain with motion of her wrist or elbow today. Her sensation is intact to touch, but she reports some diminished sensation at the tips of her fingers compared to what she feels was present before. X-RAY FINDINGS: X-rays were reviewed actually from yesterday's visit show no obvious foreign body. No fractures or other bony abnormality. IMPRESSION: Right thumb infection extending into the hand with right upper extremity. No signs of localized abscess, joint infection , or infected tenosynovitis PLAN: She has been admitted to the hospitalist service. She was seen and examined here by Dr. White today as well. We did recommend aspirating this fluid area from the dorsum of the thumb and she agreed to proceed with this today. We will send this fluid off for stat gram stain, aerobic and anaerobic cultures. Continue IV antibioitics. It would be unusual for an abscess to form so quickly and this apprears to be an aggressive cellulitis. We will order her diet today, make her n.p.o. after midnight with the possibility of surgery tomorrow if the MRI shows areas of abscess. We will get an MRI of her thumb, hand and wrist area to see if there is any abscess, particularly of the hand and wrist. Continue with the IV antibiotics as ordered. PROCEDURE NOTE: Right thumb was sterilely prepped with alcohol and using aseptic technique, we aspirated a very small amount of fluid from the blister/swelling in the dorsum of the thumb. The fluid was sent for stat gram stain, aerobic and anaerobic cultures. Apply a compressive dressing to the thumb in the area of the aspiration. She tolerated this procedure well. There were no complications. ESTEBAN
[2017-07-24] MEDS: SODIUM CHLORIDE 0.9% 1000ML 1,000 ML IV SCH (16:27)
[2017-07-24] MEDS: PIPERACILL/TAZOBAC IV 3.375 GM in DEXTROSE 5% 100ML 100 ML IV SCH (16:27)
[2017-07-24] MEDS: HYDROmorphone INJ 0.5 MG/0.5 ML SYR IV PRN ×2 (16:55→20:14)
--- NOTE | 2017-07-24 16:58 | Cardiology Consultation ---
Cardiology Consultation Date of Consultation: Jul 24, 2017. Requesting Physician: Candis Reason for Consultation: Pre-operative evaluation Pt evaluation today including: conversation w/ patient, physical exam, chart review, lab review, review of studies, review of inpatient medication list, conversation w/ attending History of Present Illness Patient is a 62-year-old woman with a history of coronary artery disease having previously undergone percutaneous intervention involving the LAD in 2014. Two nights ago she began experience pain in her right thumb. His pain worsened and she developed swelling and erythema in that limb. She was evaluated emergency room 1 day ago prescribed antibiotics but the symptoms worsened and she returned today for additional evaluation. Patient has not had subjective fevers or chills. She has significant pain involving the right extremity primarily in the hand and forearm. She cannot recall any specific injury. There is some concern that she may need operative intervention and we are asked to evaluate her in order to provide guidance regarding her cardiovascular risk. In general the patient is an active individual was accustomed to walking regularly. She is not perform routine vigorous exercise but has no limitations with activity. She does not describe exertional dyspnea or chest discomfort. She has not had dizziness or lightheadedness. She is not describe orthopnea or paroxysmal nocturnal dyspnea. She is not aware of any palpitations or rapid heartbeats. At the time of her initial intervention in 2014 she had been experiencing exertional symptoms of chest discomfort. Stress testing was abnormal and she underwent angiography which revealed the culprit lesion in the LAD. She has not had those symptoms since intervention was performed at that time. 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 No recent edema or increased abdominal girth All Other Systems: Reviewed and Negative Allergies Coded Allergies: Lisinopril (Verified Allergy, Unknown, COUGH, 07/24/17) Nickel (Verified Allergy, Unknown, SKIN IRRITATION, 07/24/17) Sulfa Antibiotics (Verified Allergy, Unknown, PT DOESN'T REMEMBER REACTION , 07/24/17) Medications Current Inpatient Medications Medications (Trade) Dose Ordered Sig/Ravin Route Start Time Stop Time Status Last Admin Dose Admin Magnesium Hydroxide (Milk Of Magnesia Susp) 30 ml Q6H PRN PO 07/24/17 12:45 08/23/17 12:44 Polyethylene (Miralax Powder Packet) 17 gm DAILY PRN PO 07/24/17 12:45 08/23/17 12:44 Ondansetron HCl (Zofran Inj) 4 mg Q6H PRN IV 07/24/17 12:45 08/23/17 12:44 Miscellaneous Information (Consult) 1 ea UD PRN N/A 07/24/17 12:45 08/23/17 12:44 Piperacillin Sod/ Tazobactam Sod 3.375 gm/Dextrose 115 ml @ 28.75 mls/ hr Q8H IV 07/24/17 16:00 08/03/17 15:59 07/24/17 16:27 28.75 MLS/HR Miscellaneous Information (Consult) 1 ea UD PRN N/A 07/24/17 12:45 08/23/17 12:44 Sodium Chloride 1,000 ml @ 75 mls/hr [id number] IV 07/24/17 12:45 08/23/17 12:44 07/24/17 16:27 75 MLS/HR Hydromorphone HCl (Dilaudid Inj) 0.5 mg Q3H PRN IV 07/24/17 12:45 08/07/17 12:44 Albuterol (Ventolin Hfa Inhaler) 2 puffs Q6H PRN INH 07/24/17 13:30 08/23/17 13:29 Aspirin (Ecotrin Tab) 81 mg QAM PO 07/25/17 09:00 08/24/17 08:59 Atorvastatin Calcium (Lipitor Tab) 80 mg QAM PO 07/25/17 09:00 08/24/17 08:59 Clopidogrel Bisulfate (plAVix TAB) 75 mg QAM PO 07/25/17 09:00 08/24/17 08:59 Levothyroxine Sodium (Synthroid Tab) 100 mcg DAILYBB PO 07/25/17 06:00 08/24/17 05:59 Losartan Potassium (coZAAR TAB) 50 mg QAM PO 07/25/17 09:00 08/24/17 08:59 Multivitamins (Multivitamin Tab) 1 tab QAM PO 07/25/17 09:00 08/24/17 08:59 Nitroglycerin (Nitrostat Tab) 0.4 mg UD PRN UT 07/24/17 13:30 08/23/17 13:29 Sertraline HCl (Zoloft Tab) 50 mg QAM PO 07/25/17 09:00 08/24/17 08:59 Vitamin B Complex/ Vit C/Folic Acid (Nephrocaps) 1 cap BID PO 07/24/17 21:00 08/23/17 20:59 Ascorbic Acid (Vitamin C Tab) 1,000 mg QAM PO 07/25/17 09:00 08/24/17 08:59 Metoprolol Succinate (Toprol Xl Tab) 50 mg DAILY PO 07/25/17 09:00 08/24/17 08:59 Vancomycin HCl 1250 mg/Sodium Chloride 275 ml @ 125 mls/hr Q18H IV 07/25/17 22:00 08/04/17 21:59 Vancomycin HCl 2000 mg/Sodium Chloride 540 ml @ 200 mls/hr TODAY@0800 ONCE IV 07/25/17 08:00 07/25/17 10:41 Physical Exam Vital Signs Past 12 Hours Date Time Temp Pulse Resp B/P (MAP) Pulse Ox O2 Delivery O2 Flow Rate FiO2 07/24/17 16:04 38.8 93 16 123/71 (88) 93 Nasal Cannula 2.0 07/24/17 14:12 91 16 114/67 93 2.0 07/24/17 12:20 95 Nasal Cannula 2.0 07/24/17 12:18 78 20 104/52 88 Room Air 07/24/17 10:05 37.5 94 20 105/60 91 Room Air She is alert and oriented x3. Mood affect appear normal. She answered all questions appropriately. HEENT: Sclerae are anicteric. Pupils are equal and reactive to light and accommodation. Extraocular movements were intact. Neuro: Cranial nerves intact Neck: Examination of the submandibular region did not reveal any significant lymphadenopathy. Carotids are palpable bilaterally and free of bruits on auscultation. There was no evidence of jugular venous distention. The thyroid was not enlarged. Lungs: Lungs are clear to auscultation bilaterally. There are no rales wheezes or rhonchi. She has normal respiratory effort without use of accessory muscles. There is normal pulmonary excursion. Cardiac: The rhythm was regular. S1 and S2 were normal. There are no murmurs on examination. The PMI was not markedly displaced on palpation. Abdomen: The abdomen was soft and nontender. Extremities: She has a normal radial pulse in the left wrist. The right hand and forearm is erythematous and swollen. There is a bandage on the right thumb. There was no evidence of significant peripheral edema bilaterally. Skin: There are no rashes noted on examination today. Data Laboratory Results: Last 24 Hours Test 07/24/17 10:40 07/24/17 10:59 White Blood Count 21.23 K/uL Red Blood Count 4.01 M/uL Hemoglobin 12.8 g/dL Hematocrit 37.2 % Mean Corpuscular Volume 92.8 fL Mean Corpuscular Hemoglobin 31.9 pg Mean Corpuscular Hemoglobin Concent 34.4 g/dl Platelet Count 242 K/uL Mean Platelet Volume 9.6 fL Neutrophils (%) (Auto) 91.4 % Lymphocytes (%) (Auto) 3.3 % Monocytes (%) (Auto) 4.8 % Eosinophils (%) (Auto) 0.0 % Basophils (%) (Auto) 0.1 % Neutrophils # (Auto) 19.39 K/uL Lymphocytes # (Auto) 0.71 K/uL Monocytes # (Auto) 1.02 K/uL Eosinophils # (Auto) 0.00 K/uL Basophils # (Auto) 0.02 K/uL RDW Standard Deviation 46.5 fL RDW Coefficient of Variation 13.6 % Immature Granulocyte % (Auto) 0.4 % Immature Granulocyte # (Auto) 0.09 K/uL Erythrocyte Sedimentation Rate 72 mm/hr Sodium Level 133 mmol/L Potassium Level 3.6 mmol/L Chloride Level 99 mmol/L Carbon Dioxide Level 26 mmol/L Anion Gap 8.0 mmol/L Blood Urea Nitrogen 18 mg/dl Creatinine 1.08 mg/dl Est Creatinine Clear Calc Drug Dose 56.7 ml/min Estimated GFR () 64.2 Estimated GFR (Non- 55.4 BUN/Creatinine Ratio 16.3 Random Glucose 129 mg/dl Calcium Level 8.7 mg/dl C-Reactive Protein 28.90 mg/dl Bedside Lactic Acid Venous 1.49 mmol/L EKG: EKG demonstrated normal sinus rhythm with nonspecific ST and T-wave abnormality. Compared directly to an EKG obtained in 2015 the T-wave inversion seen at that time of resolved Stress echocardiogram performed in January 2015 revealed inducible wall motion abnormalities well as mild mitral regurgitation Assessment & Plan 1. Coronary artery disease: Patient appears to have had successful intervention in the LAD in 2015. She has not had any return of her index symptoms. She is an active individual performs reasonable workload without exertional symptoms of chest discomfort or dyspnea. She has been maintained on a good regimen for secondary prevention to include a low-dose aspirin, clopidogrel, high-dose atorvastatin and metoprolol. 2. Valvular heart disease: Patient had mild mitral regurgitation in 2015. No significant murmur on examination. This can be followed over time. 3. Perioperative cardiac risk: I think her perioperative cardiac risk is low. Despite a history of coronary artery disease she does not have any unstable symptoms or symptoms of coronary insufficiency. She has no evidence or symptoms of arrhythmia or congestive heart failure. At this point she can proceed to surgery without any additional testing. Standard precaution should be maintained which would include avoiding significant anemia, blood loss, hypo or hypertension, tachycardia or hypoxia. Continuation of her beta-rita in the perioperative period would be advised. Interruption of her anti-platelet therapy could be done temporarily if this is required.
[2017-07-24] MEDS ORDERED: NURSING VERBAL MED ORDER ONE ×2 (19:00)
[2017-07-24] MEDS: ACETAMINOPHEN 325 MG TAB PO PRN (19:09)
[2017-07-24] MEDS: KETOROLAC TROMETHAMINE 15 MG/ML VIAL IV. PRN (19:09)
[2017-07-24] MEDS: NEPHROCAPS PO SCH (20:43)
[2017-07-24] MEDS ORDERED: VANCOMYCIN INJ 1,000 MG in SODIUM CHLORIDE 0.9% 250ML 250 ML IV SCH (21:00)
--- NOTE | 2017-07-24 22:41 | DIAGNOSTIC IMAGING REPORT ---
R UPPER EXT JOINT WITHOUT CLINICAL HISTORY: RIGHT HAND INFECTION pain. Infection. TECHNIQUE: Multiaxial MRI acquisition COMPARISON STUDY: None FINDINGS: Unremarkable signal characteristics of the osseous structures. No well-defined bone marrow replacing process. The structures the carpal tunnel are unremarkable. Findings of mild/moderate soft tissue edema primarily dorsal to the fingers and structures of the wrist. No evidence for a drainable abscess or collection. All ligamentous and tendinous structures are intact. No well-defined evidence for foreign body based on MRI criteria. No evidence for osteomyelitis. IMPRESSION: 1. Moderate generalized soft tissue edematous change. 2. Normal signal characteristics of the osseous structures. 3. No evidence for drainable abscess or collection. 4. No well-defined foreign body by MRI criteria 5. No evidence for osteomyelitis The above report was generated using voice recognition software. It may contain grammatical, syntax or spelling errors. Electronically signed by: Juan R Garrison M.D. 07/24/2017 10:39 PM Dictated Date/Time: 07/24/2017 10:35 PM
[2017-07-25] VITALS (12 sets, daily range): BP systolic 93–136; BP diastolic 59–78; PULSE 76–87; TEMP 36.8–39.3; O2SAT 83–98
[2017-07-25] MEDS: PIPERACILL/TAZOBAC IV 3.375 GM in DEXTROSE 5% 100ML 100 ML IV SCH ×4 (00:21→23:52)
[2017-07-25] MEDS: HYDROmorphone INJ 0.5 MG/0.5 ML SYR IV PRN ×4 (03:40→17:58)
[2017-07-25] MEDS: ACETAMINOPHEN 325 MG TAB PO PRN ×3 (03:51→22:40)
[2017-07-25] MEDS: SODIUM CHLORIDE 0.9% 1000ML 1,000 ML IV SCH ×2 (04:38→21:38)
[2017-07-25] MEDS: KETOROLAC TROMETHAMINE 15 MG/ML VIAL IV. PRN ×2 (04:41→23:52)
[2017-07-25] MEDS: LEVOTHYROXINE 100 MCG TAB PO SCH (04:48)
[2017-07-25 07:48] LABS: CREATININE 1.16 mg/dl (0.60-1.20)
[2017-07-25] MEDS ORDERED: VANCOMYCIN INJ 2,000 MG in SODIUM CHLORIDE 0.9% 500ML 500 ML IV ONE (08:00)
[2017-07-25] MEDS: ASCORBIC ACID 500 MG TAB PO SCH (09:34)
[2017-07-25] MEDS: SERTRALINE HCL 50 MG TAB PO SCH (09:34)
[2017-07-25] MEDS: NEPHROCAPS PO SCH ×2 (09:34→20:39)
[2017-07-25] MEDS: ASPIRIN 81 MG ECTAB PO SCH (09:34)
[2017-07-25] MEDS: ATORVASTATIN 40 MG TAB PO SCH (09:35)
[2017-07-25] MEDS: CLOPIDOGREL BISULFATE 75 MG TAB PO SCH (09:35)
[2017-07-25] MEDS: MULTIVITAMIN TAB PO SCH (09:36)
[2017-07-25 09:39] LABS: HEMATOCRIT 33.6 % (37-47); HEMOGLOBIN 11.6 g/dL (12.0-16.0); MEAN CELL VOLUME 94.1 fL (80-100); MEAN CORPUSCULAR HEMOGLOBIN 32.5 pg (25-34); MEAN CORPUSCULAR HGB CONC 34.5 g/dl (32-36); PLATELET COUNT 220 K/uL (130-400); RED CELL DISTRIBUTION WIDTH CV 13.9 % (11.5-14.5); WHITE BLOOD COUNT 18.63 K/uL (4.8-10.8)
[2017-07-25] MEDS: METOPROLOL SUCC 50MG EXT REL TAB PO SCH (10:41)
[2017-07-25] MEDS: LOSARTAN POTASSIUM 50 MG TAB PO SCH (10:41)
--- NOTE | 2017-07-25 11:10 | CARDIOLOGY PROGRESS NOTE ---
DATE: 07/25/2017 SUBJECTIVE: Mrs. Vang is resting comfortably in bed without complaints of chest pain or dyspnea. Right upper extremity discomfort has improved. OBJECTIVE: VITAL SIGNS: Blood pressure 170/60 with a regular pulse of 78. Respiratory rate is 18. The patient is afebrile at 37.1 degrees Celsius. Saturation is 97% on 2 liters nasal cannula. NECK: Supple with full carotid upstrokes. No carotid bruits. Jugular venous pressure is flat at 90 degrees. There is no thyromegaly. CARDIOVASCULAR: Reveals a regular rhythm with a normal S1 and S2. Heart sounds are distant. No obvious murmurs. LUNGS: Clear without rales, rhonchi, or wheezes. ABDOMEN: Obese without bruits. EXTREMITIES: Reveal intact radial artery pulse on the left. Right upper extremity is edematous and the thumb erythematous. There is no pretibial edema. LABORATORY DATA: CBC notes hemoglobin of 11.6, hematocrit 33.6, white count 18.6, platelet count 220,000. Electrolytes note a creatinine of 1.16. Blood cultures are pending. IMPRESSION AND PLAN: 1. Right upper extremity cellulitis management per orthopedic and hospitalist teams. 2. Coronary artery disease -- status post left anterior descending artery drug-eluting stent in January 2015. Has been quiescent on current medical regimen since that time. 3. Hypertension -- controlled. 4. Hypercholesterolemia -- continue statin. 5. Mild mitral regurgitation.
[2017-07-25] MEDS ORDERED: NURSING DECISION MEDICATION ORDER SCH (11:30)
--- NOTE | 2017-07-25 12:27 | Hospitalist Progress Note ---
Hospitalist Progress Note Date of Service Jul 25, 2017. (Mireille Bower ., PA-C) Subjective Pt evaluation today including: conversation w/ patient, conversation w/ family ( at bedside ), physical exam, lab review, review of studies, review of inpatient medication list Voiding: no voiding problems Patient resting in bed. Currently NPO for ?procedure. No procedure needed at this time as per ortho- diet advanced. R hand seems minimally improved- NOT worse though. Started out as a ?small splinter and progressively got worse Seen in ED on Sunday and discharged to home on Doxy + Keflex On Sunday, R hand was progressively worse so came back to ED and got admitted Patient denies any fever, chills, sweats, lightheadedness, dizziness, vision changes, CP, palpitations, edema, SOB, wheezing, cough, abdominal pain, nausea, vomiting, diarrhea, urinary symptoms, melena, numbness/tingling, weakness, muscle/joint pain, anxiety/depression, active bleeding. (Mireille Bower ., PA-C) Medications Current Inpatient Medications Medications (Trade) Dose Ordered Sig/Ravin Route Start Time Stop Time Status Last Admin Dose Admin Magnesium Hydroxide (Milk Of Magnesia Susp) 30 ml Q6H PRN PO 07/24/17 12:45 08/23/17 12:44 Polyethylene (Miralax Powder Packet) 17 gm DAILY PRN PO 07/24/17 12:45 08/23/17 12:44 Ondansetron HCl (Zofran Inj) 4 mg Q6H PRN IV 07/24/17 12:45 08/23/17 12:44 Miscellaneous Information (Consult) 1 ea UD PRN N/A 07/24/17 12:45 08/23/17 12:44 Piperacillin Sod/ Tazobactam Sod 3.375 gm/Dextrose 115 ml @ 28.75 mls/ hr Q8H IV 07/24/17 16:00 08/03/17 15:59 07/25/17 08:15 28.75 MLS/HR Miscellaneous Information (Consult) 1 ea UD PRN N/A 07/24/17 12:45 08/23/17 12:44 Sodium Chloride 1,000 ml @ 75 mls/hr [id number] IV 07/24/17 12:45 08/23/17 12:44 07/25/17 04:38 75 MLS/HR Hydromorphone HCl (Dilaudid Inj) 0.5 mg Q3H PRN IV 07/24/17 12:45 08/07/17 12:44 07/25/17 09:29 0.5 MG Albuterol (Ventolin Hfa Inhaler) 2 puffs Q6H PRN INH 07/24/17 13:30 08/23/17 13:29 Aspirin (Ecotrin Tab) 81 mg QAM PO 07/25/17 09:00 08/24/17 08:59 07/25/17 09:34 81 MG Atorvastatin Calcium (Lipitor Tab) 80 mg QAM PO 07/25/17 09:00 08/24/17 08:59 07/25/17 09:35 80 MG Clopidogrel Bisulfate (plAVix TAB) 75 mg QAM PO 07/25/17 09:00 08/24/17 08:59 07/25/17 09:35 75 MG Levothyroxine Sodium (Synthroid Tab) 100 mcg DAILYBB PO 07/25/17 06:00 08/24/17 05:59 07/25/17 04:48 100 MCG Losartan Potassium (coZAAR TAB) 50 mg QAM PO 07/25/17 09:00 08/24/17 08:59 07/25/17 10:41 50 MG Multivitamins (Multivitamin Tab) 1 tab QAM PO 07/25/17 09:00 08/24/17 08:59 07/25/17 09:36 1 TAB Nitroglycerin (Nitrostat Tab) 0.4 mg UD PRN UT 07/24/17 13:30 08/23/17 13:29 Sertraline HCl (Zoloft Tab) 50 mg QAM PO 07/25/17 09:00 08/24/17 08:59 07/25/17 09:34 50 MG Vitamin B Complex/ Vit C/Folic Acid (Nephrocaps) 1 cap BID PO 07/24/17 21:00 08/23/17 20:59 07/25/17 09:34 1 CAP Ascorbic Acid (Vitamin C Tab) 1,000 mg QAM PO 07/25/17 09:00 08/24/17 08:59 07/25/17 09:34 1,000 MG Metoprolol Succinate (Toprol Xl Tab) 50 mg DAILY PO 07/25/17 09:00 08/24/17 08:59 07/25/17 10:41 50 MG Vancomycin HCl 1250 mg/Sodium Chloride 275 ml @ 125 mls/hr Q18H IV 07/25/17 22:00 08/04/17 21:59 Acetaminophen (Tylenol Tab) 650 mg Q6H PRN PO 07/24/17 19:15 08/23/17 19:14 07/25/17 03:51 650 MG Ketorolac Tromethamine (Toradol Inj) 15 mg Q6H PRN IV. 07/24/17 19:15 07/29/17 19:14 07/25/17 04:41 15 MG Miscellaneous Information (Nursing Decision Medication Order) 1 ea UD N/A 07/25/17 11:30 08/24/17 11:29 UNV (Mireille Bower, ADELAIDA) Objective Vital Signs Date Time Temp Pulse Resp B/P (MAP) Pulse Ox O2 Delivery O2 Flow Rate FiO2 07/25/17 10:40 78 107/60 (76) 07/25/17 09:30 93/59 (70) 07/25/17 07:50 83 Room Air 07/25/17 07:50 96 Nasal Cannula 4.0 07/25/17 06:55 37.1 76 19 123/78 (93) 97 Nasal Cannula 2.0 07/25/17 04:56 37.5 07/25/17 03:33 37.9 07/25/17 03:33 136/76 (96) 07/25/17 00:27 Nasal Cannula 3.0 07/25/17 00:17 37.0 81 18 96/59 (71) 95 Nasal Cannula 3.0 07/24/17 20:09 38.3 91 14 95 Nasal Cannula 4.0 07/24/17 18:40 39.2 105 97 Nasal Cannula 4.0 07/24/17 18:38 88 Room Air 07/24/17 17:00 38.4 97 Nasal Cannula 4.0 07/24/17 16:04 38.8 93 16 123/71 (88) 93 Nasal Cannula 2.0 07/24/17 15:00 93 Nasal Cannula 2.0 07/24/17 15:00 Nasal Cannula 2.0 07/24/17 14:30 37.9 85 16 121/63 (82) 93 Nasal Cannula 2.0 07/24/17 14:12 91 16 114/67 93 2.0 07/24/17 12:20 95 Nasal Cannula 2.0 07/24/17 12:18 78 20 104/52 88 Room Air (Mireille Bower, PA-C) Physical Exam General Appearance: no apparent distress, + obese Eyes: normal inspection, PERRL ENT: hearing grossly normal Neck: supple Respiratory/Chest: lungs clear, no respiratory distress, no accessory muscle use Cardiovascular: regular rate, rhythm Abdomen: normal bowel sounds, non tender, soft Extremities: no pedal edema, no calf tenderness, + pertinent finding (R thumb/ hand to mid-arm erythema/warmth/swelling; no obvious drainage; no erythema beyond mapping noted ) Neurologic/Psychiatric: alert, oriented x 3, + depressed affect Skin: normal color, warm/dry, no rash (Mireille Bower ., PA-C) Laboratory Results Last 24 Hours Test 07/25/17 06:45 07/25/17 06:46 Creatinine 1.16 mg/dl Est Creatinine Clear Calc Drug Dose 52.3 ml/min Estimated GFR () 58.9 Estimated GFR (Non- 50.8 White Blood Count 18.63 K/uL Red Blood Count 3.57 M/uL Hemoglobin 11.6 g/dL Hematocrit 33.6 % Mean Corpuscular Volume 94.1 fL Mean Corpuscular Hemoglobin 32.5 pg Mean Corpuscular Hemoglobin Concent 34.5 g/dl RDW Standard Deviation 48.0 fL RDW Coefficient of Variation 13.9 % Platelet Count 220 K/uL Mean Platelet Volume 10.0 fL (Mireille Bower ., PA-C) Assessment and Plan Pt is a 62 yo female with a h/o CAD s/p SARAH to LAD 01/2015, HTN, HL, hypothyroidism, SI joint pain, and left hemifacial spasm, who presents to the ER for the second time in 2 days for right thumb/hand pain and swelling, along with fever. She reports noticing a small pimple on pad of right thumb 2 days ago , then she began having redness and swelling, pain, and fever. She was seen by PCP yesterday who referred her to the ER on 07/23. She had xrays which were neg for OM, was given IV Rocephin, had a WBC count of 17k, and was discharged to home on po keflex and doxycycline. She then developed worsening erythema spreading up her arm and continued fevers at home. In the ER today, her white count was up to 22,000, she was tachycardic in the mid 90s. She was given IV daptomycin and IV Zosyn, along with morphine. She became mildly hypoxic at 88%-the states that the patient snores and has not been checked out for sleep apnea. Sepsis secondary to R thumb/hand abscess and cellulitis: - Admitted to med/surg - IV Vancomycin + Zosyn- started on 07/24 - IV Dilaudid, IV Toradol PRN for pain management - NPO at admission- advancing diet today - IV NSS @ 75 ml/hr while NPO- advancing diet today, BPs low, will continue at this time until tolerating PO intake - MRI w/out abscess or evidence of osteomyelitis - BCx pending - Consulted orthopedics, appreciate recommendations -- s/p I&D on 07/24- cultures pending Acute hypoxemic respiratory failure likely secondary to opioids/sedative medications in ED- RESOLVED, ?RIOS: - O2 protocol, wean as tolerated - Continue Ventolin PRN - Recommend outpatient f/u for sleep study CAD s/p cardiac stenting, HTN, HLD- STABLE: - Continue Toprol-XL, Losartan, ASA, Plavix, nitroglycerin as needed, and Atorvastatin - Cardiology consulted for surgical clearance, appreciate recommendations Hypothyroidism: Continue Synthroid Anxiety: Continue Zoloft DVT prophylaxis: TEDs/SCDs, ambulation; hold chemical anticoagulation incase surgical procedure needed Code Status: LEVEL I, FULL Dispo: Discharge to home once medically stable- no discharge needs anticipated (Mireille Bower, PA-C) Supervising Note Dr. Prado I performed a history and physical examination on the patient. I reviewed above note and agree with it. I discussed plan with APC and patient. During my face to face encounter with the patient, I answered all of the patient's questions. (Lior Prado M.D.)
--- NOTE | 2017-07-25 12:30 | PROGRESS NOTE ---
DATE: 07/25/2017 SUBJECTIVE: A 62-year-old female admitted with a right hand infection. Really, no interval change in symptoms today. Her pain is about the same. The hand continues to feel stiff. No other real complaints. OBJECTIVE: VITAL SIGNS: Temperature is 37.1. Vital signs stable. EXTREMITIES: Right hand and arm reveals the thumb to be actually less swollen after we aspirated this bulla. The right hand and forearm are similarly swollen to last night. There may be just a little bit less streaking and little bit less redness, but everything else was essentially the same. She can flex and extend her fingers slightly. Not a lot of soreness with palpation of the flexor tendon sheath. She is neurologically intact. MRI is reviewed. It shows diffuse edema and cellulitis throughout her hand and wrist area. There are no fluid collections or signs of abscess. No signs of joint infection or suppurative tenosynovitis. ASSESSMENT: A 62-year-old white female who was admitted with pretty severe aggressive and acute right hand infection. There are no signs of abscess or collection of fluid that needs surgically drained. At this point, there is nothing surgically that is going to help her. PLAN: At this point, I would recommend continued IV antibiotics. We did aspirate this blister and see if it grows anything. We will continue to follow her daily. She can use her hand normally. I encouraged her to work on finger range of motion, so her fingers do not get stiff. Any orthopedic questions can be directed to me at [phone]. [facility]
[2017-07-25] MEDS ORDERED: LACTOBACILLUS ACIDOPHILUS 1 GM PACK PO ONE (18:35)
--- NOTE | 2017-07-25 18:35 | DIAGNOSTIC IMAGING REPORT ---
SINGLE VIEW CHEST CLINICAL HISTORY: Hypoxia. FINDINGS: An AP, portable, upright chest radiograph is compared to study dated 11/07/2013. The examination is degraded by portable technique and patient rotation. The heart is mildly enlarged. The pulmonary vasculature is noncongested. Chronic interstitial thickening is similar to previous. There are bibasilar airspace opacities. No large pleural effusion or pneumothorax is seen. The skeletal structures are osteopenic. The bony thorax is grossly intact. IMPRESSION: 1. Cardiomegaly without radiographic evidence of congestive failure. 2. There are bibasilar airspace opacities. This could represent atelectasis versus developing pneumonia. Clinical correlation will be required. Electronically signed by: Fan Rodrigues M.D. 07/25/2017 6:34 PM Dictated Date/Time: 07/25/2017 6:33 PM
[2017-07-25] MEDS ORDERED: VANCOMYCIN INJ 1,250 MG in SODIUM CHLORIDE 0.9% 250ML 250 ML IV SCH (22:00)
[2017-07-26] VITALS (10 sets, daily range): BP systolic 142–146; BP diastolic 78–82; PULSE 76–86; TEMP 36.7–38.6; O2SAT 76–98
[2017-07-26] MEDS: LEVOTHYROXINE 100 MCG TAB PO SCH (06:27)
[2017-07-26 06:49] LABS: HEMATOCRIT 32.5 % (37-47); HEMOGLOBIN 11.2 g/dL (12.0-16.0); MEAN CELL VOLUME 94.2 fL (80-100); MEAN CORPUSCULAR HEMOGLOBIN 32.5 pg (25-34); MEAN CORPUSCULAR HGB CONC 34.5 g/dl (32-36); PLATELET COUNT 203 K/uL (130-400); RED CELL DISTRIBUTION WIDTH CV 13.8 % (11.5-14.5); RED CELL DISTRIBUTION WIDTH SD 47.2 fL (36.4-46.3); WHITE BLOOD COUNT 14.06 K/uL (4.8-10.8)
[2017-07-26 07:27] LABS: CALCIUM 8.2 mg/dl (8.5-10.1); CREATININE 0.72 mg/dl (0.60-1.20); POTASSIUM 3.3 mmol/L (3.5-5.1)
--- NOTE | 2017-07-26 07:37 | PROGRESS NOTE ---
DATE: 07/26/2017 SUBJECTIVE: A 62-year-old female admitted with right hand and arm, upper extremity cellulitis. Seems to be a little bit improved from a pain standpoint today. No other new complaints. OBJECTIVE: VITAL SIGNS: Temperature is 36.7. She was febrile last evening. Other vital signs are stable. GENERAL: Physical examination reveals a pleasant, middle-aged female. I had to wake her this morning. EXTREMITIES: Examination of the right hand continues to show markedly swollen hand up to the mid forearm. The redness in the hand seems to be a little bit worse, but the redness in the arm seems to be a little bit improved. She can flex and extend her fingers and her finger motion is improved. It is a bit less painful. There is diffuse edema. There is no obvious fluctuance or signs of abscess. ASSESSMENT: A 62-year-old female with right upper extremity cellulitis, very slowly responds to the antibiotics. Her white cell count is improved. Pain abebe and function abebe, she is slightly improved, but really no better by just looking at her hand and swelling. PLAN: Continue IV antibiotics. There is no surgical indication at this point as it looks to be all cellulitis. There is no abscess or obvious fluid collections. Her white cell count has improved, which is certainly a sign of improvement. Recommend continued IV antibiotics. May want to put her on some Toradol and see if this helps with her swelling. Any orthopedic questions can be directed to me at [phone].
[2017-07-26] MEDS: PIPERACILL/TAZOBAC IV 3.375 GM in DEXTROSE 5% 100ML 100 ML IV SCH ×2 (08:04→16:14)
[2017-07-26] MEDS: KETOROLAC TROMETHAMINE 15 MG/ML VIAL IV. PRN ×2 (08:04→15:41)
[2017-07-26] MEDS: LACTOBACILLUS ACIDOPHILUS 1 GM PACK PO SCH ×3 (08:06→18:11)
[2017-07-26] MEDS: LOSARTAN POTASSIUM 50 MG TAB PO SCH (09:01)
[2017-07-26] MEDS: ASPIRIN 81 MG ECTAB PO SCH (09:02)
[2017-07-26] MEDS: METOPROLOL SUCC 50MG EXT REL TAB PO SCH (09:02)
[2017-07-26] MEDS: ASCORBIC ACID 500 MG TAB PO SCH (09:02)
[2017-07-26] MEDS: ATORVASTATIN 40 MG TAB PO SCH (09:02)
[2017-07-26] MEDS: CLOPIDOGREL BISULFATE 75 MG TAB PO SCH (09:02)
[2017-07-26] MEDS: NEPHROCAPS PO SCH ×2 (09:02→20:23)
[2017-07-26] MEDS: SERTRALINE HCL 50 MG TAB PO SCH (09:03)
[2017-07-26] MEDS: MULTIVITAMIN TAB PO SCH (09:03)
--- NOTE | 2017-07-26 09:30 | CARDIOLOGY PROGRESS NOTE ---
DATE: 07/26/2017 SUBJECTIVE: Mrs. Vang is resting comfortably in bed without complaints of chest pain or dyspnea. Still notes discomfort in the right upper extremity. OBJECTIVE: VITAL SIGNS: Blood pressure 146/82 with a regular pulse 76. Respiratory rate is 20. The patient is afebrile at 36.9 degrees Celsius. Saturation is 91% on 4 liters nasal cannula. NECK: Supple with full carotid upstrokes. No carotid bruits. Jugular venous pressure is flat at 90 degrees. There is no thyromegaly. CARDIOVASCULAR: Reveals a regular rhythm with normal S1 and S2. Heart sounds are distant. No obvious murmurs. LUNGS: Clear without rales, rhonchi, or wheezes. ABDOMEN: Obese without bruits. EXTREMITIES: Noted intact radial artery pulse on the left. Right upper extremity is edematous and erythematous. There is no pretibial edema. LABORATORY DATA: CBC notes hemoglobin 11.2, hematocrit 32.5, white count 14.06, platelet count of 203,000. Electrolytes note a sodium of 140, potassium 3.3, chloride 106, bicarbonate 25, BUN 10, creatinine 0.72, glucose 94. IMPRESSION AND PLAN: 1. Right upper extremity cellulitis -- per Dr. White. 2. Coronary artery disease status post left anterior descending drug-eluting stent in January 2015. Quiescent under current medical regimen. 3. Hypertension -- controlled. 4. Hypercholesterolemia -- continue statin. 5. Mild mitral regurgitation.
[2017-07-26] MEDS: VANCOMYCIN INJ 1,250 MG in SODIUM CHLORIDE 0.9% 250ML 250 ML IV SCH ×2 (10:03→21:48)
[2017-07-26] MEDS: POTASSIUM CHLORIDE 20 MEQ TABCR PO SCH (10:03)
[2017-07-26] MEDS: HYDROmorphone INJ 0.5 MG/0.5 ML SYR IV PRN (10:11)
--- NOTE | 2017-07-26 11:19 | Medical Consult ---
Consultation Date of Consultation: Jul 26, 2017. Attending Physician: Lior Prado M.D. 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 Patient was seen 2 days earlier in the emergency department after finding small pimple on her right thumb, and over several days developing increasing redness and swelling. She was treated with cephalexin and doxycycline but redness, swelling, and pain progressively worsened and she returned and was admitted. She had associated fever and chills. She has been started on vancomycin and Zosyn, erythema spreading up her arm has started to subside in fade, but her right hand has become more swollen and erythematous. She has been having intermittent fevers. No obvious problems with antibiotics. Gram stain of fluid from her right thumb puncture wound shows few white cells but no organisms. Cultures are pending. Blood cultures have been negative. Patient does not remember cat bite or scratch, but has cats as pets. Past Medical/Surgical History Medical Problems: (1) CAD (coronary artery disease), [place] coronary artery Status: Chronic (2) CAD S/P percutaneous coronary angioplasty Status: Chronic (3) Cellulitis of right thumb Status: Acute (4) Hyperlipidemia Status: Chronic (5) Hypothyroidism Status: Chronic Medical Problems: (1) Acute bronchitis (2) Acute bronchitis (3) Bronchitis (4) CAD (coronary artery disease), [place] coronary artery (5) CAD S/P percutaneous coronary angioplasty (6) Cellulitis and abscess of hand (7) Fever (8) Hyperlipidemia (9) Hypothyroidism (10) Sepsis Family History Noncontributory Social History Smoking Status: Unknown if Ever Smoked Alcohol Use: drinks one drink daily Drug Use: none Marital Status: (and has 2 children) 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[employer]) Allergies Coded Allergies: Lisinopril (Verified Allergy, Unknown, COUGH, 07/24/17) Nickel (Verified Allergy, Unknown, SKIN IRRITATION, 07/24/17) Sulfa Antibiotics (Verified Allergy, Unknown, PT DOESN'T REMEMBER REACTION , 07/24/17) Current Inpatient Medications Current Inpatient Medications Medications (Trade) Dose Ordered Sig/Ravin Route Start Time Stop Time Status Last Admin Dose Admin Magnesium Hydroxide (Milk Of Magnesia Susp) 30 ml Q6H PRN PO 07/24/17 12:45 08/23/17 12:44 Polyethylene (Miralax Powder Packet) 17 gm DAILY PRN PO 07/24/17 12:45 08/23/17 12:44 Ondansetron HCl (Zofran Inj) 4 mg Q6H PRN IV 07/24/17 12:45 08/23/17 12:44 Miscellaneous Information (Consult) 1 ea UD PRN N/A 07/24/17 12:45 08/23/17 12:44 Piperacillin Sod/ Tazobactam Sod 3.375 gm/Dextrose 115 ml @ 28.75 mls/ hr Q8H IV 07/24/17 16:00 08/03/17 15:59 07/26/17 08:04 28.75 MLS/HR Miscellaneous Information (Consult) 1 ea UD PRN N/A 07/24/17 12:45 08/23/17 12:44 Hydromorphone HCl (Dilaudid Inj) 0.5 mg Q3H PRN IV 07/24/17 12:45 08/07/17 12:44 07/26/17 10:11 0.5 MG Albuterol (Ventolin Hfa Inhaler) 2 puffs Q6H PRN INH 07/24/17 13:30 08/23/17 13:29 Aspirin (Ecotrin Tab) 81 mg QAM PO 07/25/17 09:00 08/24/17 08:59 07/26/17 09:02 81 MG Atorvastatin Calcium (Lipitor Tab) 80 mg QAM PO 07/25/17 09:00 08/24/17 08:59 07/26/17 09:02 80 MG Clopidogrel Bisulfate (plAVix TAB) 75 mg QAM PO 07/25/17 09:00 08/24/17 08:59 07/26/17 09:02 75 MG Levothyroxine Sodium (Synthroid Tab) 100 mcg DAILYBB PO 07/25/17 06:00 08/24/17 05:59 07/26/17 06:27 100 MCG Losartan Potassium (coZAAR TAB) 50 mg QAM PO 07/25/17 09:00 08/24/17 08:59 07/26/17 09:01 50 MG Multivitamins (Multivitamin Tab) 1 tab QAM PO 07/25/17 09:00 08/24/17 08:59 07/26/17 09:03 1 TAB Nitroglycerin (Nitrostat Tab) 0.4 mg UD PRN UT 07/24/17 13:30 08/23/17 13:29 Sertraline HCl (Zoloft Tab) 50 mg QAM PO 07/25/17 09:00 08/24/17 08:59 07/26/17 09:03 50 MG Vitamin B Complex/ Vit C/Folic Acid (Nephrocaps) 1 cap BID PO 07/24/17 21:00 08/23/17 20:59 07/26/17 09:02 1 CAP Ascorbic Acid (Vitamin C Tab) 1,000 mg QAM PO 07/25/17 09:00 08/24/17 08:59 07/26/17 09:02 1,000 MG Metoprolol Succinate (Toprol Xl Tab) 50 mg DAILY PO 07/25/17 09:00 08/24/17 08:59 07/26/17 09:02 50 MG Acetaminophen (Tylenol Tab) 650 mg Q6H PRN PO 07/24/17 19:15 08/23/17 19:14 07/25/17 22:40 650 MG Ketorolac Tromethamine (Toradol Inj) 15 mg Q6H PRN IV. 07/24/17 19:15 07/29/17 19:14 07/26/17 08:04 15 MG Lactobacillus Acidophilus (Lactinex Granules Pack) 1 gm TIDM PO 07/26/17 08:30 08/25/17 08:29 07/26/17 08:06 1 GM Potassium Chloride (Klor-Con Tab) 20 meq QAM PO 07/26/17 09:00 08/25/17 08:59 07/26/17 10:03 20 MEQ Vancomycin HCl 1250 mg/Sodium Chloride 275 ml @ 125 mls/hr Q12@1000,2200 IV 07/26/17 10:00 08/05/17 09:59 07/26/17 10:03 125 MLS/HR Heparin Sodium (Porcine) (Heparin Sq 5000 Unit/0.5ml) 5,000 unit Q12 SQ 07/26/17 21:00 08/25/17 20:59 UNV Review of Systems Constitutional: + fever, + chills Eyes: No problem reported ENT: No problem reported Respiratory: No problem reported Cardiovascular: No problem reported Abdomen: No problem reported Musculoskeletal: + joint pain, + muscle pain, + swelling Genitourinary - Female: No problem reported Neurologic: No problem reported Psychiatric: No problem reported Endocrine: No problem reported Hematologic / Lymphatic: No problem reported Integumentary: + new/changing skin lesions Allergic / Immunologic: No problem reported Physical Exam Date Time Temp Pulse Resp B/P (MAP) Pulse Ox O2 Delivery O2 Flow Rate FiO2 07/26/17 07:45 93 Nasal Cannula 3.0 07/26/17 07:45 76 Room Air 07/26/17 07:44 37.6 76 20 146/82 (103) 91 Room Air 07/26/17 04:45 36.7 07/26/17 00:05 Nasal Cannula 4.0 07/25/17 23:36 38.1 87 18 130/67 (88) 95 Nasal Cannula 4.0 07/25/17 22:37 39.3 07/25/17 16:06 38.3 87 19 115/66 (82) 95 Nasal Cannula 4.0 07/25/17 13:13 98 Nasal Cannula 4.0 07/25/17 12:34 36.8 82 18 111/71 (84) 98 Nasal Cannula 4.0 General Appearance: WD/WN, no apparent distress Head: normocephalic, atraumatic Eyes: normal inspection, EOMI, sclerae normal ENT: normal ENT inspection, hearing grossly normal, pharynx normal Neck: supple, no adenopathy, thyroid normal, trachea midline Respiratory/Chest: chest non-tender, lungs clear, normal breath sounds, no respiratory distress Cardiovascular: regular rate, rhythm, no gallop, no murmur Abdomen/GI: normal bowel sounds, non tender, soft, no organomegaly Back: normal inspection, no CVA tenderness Extremities/Musculoskelatal: no calf tenderness, normal capillary refill, + inflammation (Right hand), + swelling (Right hand) Neurologic/Psych: alert, normal reflexes Skin: normal color, no rash, + pertinent finding (Intense erythema and swelling of right hand with small puncture wound apparent on right thumb. Erythema extending right arm appears to be subsiding in fading.) Lymphatic: no adenopathy Laboratory Results RUN DATE: 07/26/17 [facility] LAB PAGE 1 RUN TIME: 0953 Specimen Inquiry PATIENT: TOPHER MORALES LOC: [place] U # : [id number] AGE/SX: 62/F ROOM: [facility] REG : 07/24/[address]: Lior Prado M.D. : 1955 BED: 1 DIS : STATUS: ADM IN TLOC: SPEC #: [id number] LINDA: 07/24/17 STATUS: RES REQ #: [id number] RECD: 07/24/[address] [facility] [address]: Roman Rush PA SOURCE: JOINT FLSP ENTR: 07/24/17 [facility] DR: Santhosh Ulloa M.D. SPDESC: Esvin SEWELL James S., M.D. Maurer, Candace, CDalilaRDalilaNRhonda Shane MD ORDERED: AER/RYAN CULTSMR COMMENTS: Has Specimen Been Obtained/Collected? Y Procedure Result Verified Site GRAM STAIN Final 07/24/17-2033 RESULT FEW WBCs SEEN NO ORGANISMS SEEN OR AER/RYAN CULT Preliminary 07/26/17 NO GROWTH TO DATE. Last 24 Hours Test 07/26/17 06:23 07/26/17 10:53 White Blood Count 14.06 K/uL Red Blood Count 3.45 M/uL Hemoglobin 11.2 g/dL Hematocrit 32.5 % Mean Corpuscular Volume 94.2 fL Mean Corpuscular Hemoglobin 32.5 pg Mean Corpuscular Hemoglobin Concent 34.5 g/dl RDW Standard Deviation 47.2 fL RDW Coefficient of Variation 13.8 % Platelet Count 203 K/uL Mean Platelet Volume 10.0 fL Sodium Level 140 mmol/L Potassium Level 3.3 mmol/L Chloride Level 106 mmol/L Carbon Dioxide Level 25 mmol/L Anion Gap 9.0 mmol/L Blood Urea Nitrogen 10 mg/dl Creatinine 0.72 mg/dl Est Creatinine Clear Calc Drug Dose 84.2 ml/min Estimated GFR () 104.8 Estimated GFR (Non- 90.4 BUN/Creatinine Ratio 13.2 Random Glucose 94 mg/dl Calcium Level 8.2 mg/dl R UPPER EXT JOINT WITHOUT CLINICAL HISTORY: RIGHT HAND INFECTION pain. Infection. TECHNIQUE: Multiaxial MRI acquisition COMPARISON STUDY: None FINDINGS: Unremarkable signal characteristics of the osseous structures. No well-defined bone marrow replacing process. The structures the carpal tunnel are unremarkable. Findings of mild/moderate soft tissue edema primarily dorsal to the fingers and structures of the wrist. No evidence for a drainable abscess or collection. All ligamentous and tendinous structures are intact. No well-defined evidence for foreign body based on MRI criteria. No evidence for osteomyelitis. IMPRESSION: 1. Moderate generalized soft tissue edematous change. 2. Normal signal characteristics of the osseous structures. 3. No evidence for drainable abscess or collection. 4. No well-defined foreign body by MRI criteria 5. No evidence for osteomyelitis The above report was generated using voice recognition software. It may contain grammatical, syntax or spelling errors. Electronically signed by: Juan R Garrison M.D. 07/24/2017 10:39 PM Dictated Date/Time: 07/24/2017 10:35 PM The status of this report is Signed. Draft = Not yet reviewed or approved by Radiologist. Signed = Reviewed and appro Assessment & Plan Severe right hand and arm infection in the setting what appears to be a puncture of the right thumb. Certainly has appearance of acute streptococcal infection, but given that she has cats, pasteurella and staph also possibility. Patient should be continued on vancomycin and Zosyn for now, and I will add clindamycin for 48 hours for possible antitoxin effects. May need follow-up MRI scan of the hand if swelling worsens. Will follow.
[2017-07-26 11:51] LABS: INR 0.9 (0.9-1.1)
[2017-07-26] MEDS ORDERED: OPTIRAY 320 IV PRN (12:00)
--- NOTE | 2017-07-26 12:54 | DIAGNOSTIC IMAGING REPORT ---
(CHEST FOR PE) ANGIO WITH CT DOSE: 560.15 mGycm HISTORY: 62 years-old Female presents with sialitis of the hand and hypoxia TECHNIQUE: Multiple CTA images of the chest were obtained after the intravenous administration of 93 ml Optiray 320. Coronal and sagittal MIPS were obtained from the axial data set and were submitted for review. A dose lowering technique was utilized adhering to the principles of ALARA. COMPARISON: Chest radiograph 07/25/2017. FINDINGS: CTA: Heart is mildly enlarged with coronary arterial calcifications. The thoracic aorta is normal in both course and caliber with mild degree of mixed plaquing present. Imaged great vessels are patent. There is no aortic aneurysm or dissection identified. There is tortuosity of the proximal right common carotid artery. The pulmonary arterial tree is opacified to level of the subsegmental branches and demonstrates no focal filling defects to suggest pulmonary thromboembolic disease. CT CHEST: Thyroid appears homogeneous. Mildly prominent lymph nodes of the right axillary seen measuring up to 8 mm which are nonspecific. Prominent and enlarged right hilar lymph nodes measure up to 1.6 x 1.0 cm. There are trace bilateral pleural effusions. No pneumothorax. Moderate bilateral bronchial wall thickening with patchy consolidative opacities of the lower lobes, notably within the basal segments. Scattered groundglass opacities are noted throughout the left upper lobe and lingula with areas of mosaic attenuation suggesting air trapping. Areas of mucous plugging are noted within the lung bases. There is suggestion of mild gallbladder wall thickening is only partially imaged. Soft tissues are unremarkable. Bones appear intact. IMPRESSION: 1. No acute aortic pathology or evidence of pulmonary thromboembolic disease. 2. Moderate acute bronchitis with trace bilateral pleural effusions and multifocal patchy consolidative opacities of the lower lobes, right greater then left suggesting pneumonia or aspiration pneumonitis. 3. Mild right hilar adenopathy, likely reactive. 4. Gallbladder wall appears mildly thickened, however only partially imaged. Correlate with clinical exam and patient symptoms. The above report was generated using voice recognition software. It may contain grammatical, syntax or spelling errors. Electronically signed by: Jerald Eduardo M.D. 07/26/2017 12:53 PM Dictated Date/Time: 07/26/2017 12:43 PM
[2017-07-26] MEDS ORDERED: ALBUT/IPRATROP 3MG/0.5MG NEB 3 ML VIAL INH PRN (13:15)
--- NOTE | 2017-07-26 13:15 | Hospitalist Progress Note ---
Hospitalist Progress Note Date of Service Jul 26, 2017. (Mireille Bower ., PA-C) Subjective Pt evaluation today including: conversation w/ patient, conversation w/ family ( at bedside ), physical exam, lab review, review of studies, review of inpatient medication list Voiding: no voiding problems Patient resting in bed. Eating and drinking OK. R hand cellulitis does not seem to be worsening- erythema has darkened. + SOB. Requiring O2 supplement Former smoker No COPD/asthma diagnosis Dropped to 70s on RA Denies cough or sputum production, fever/chills. WBC improving. Encouraged ambulation, OOB in chair, incentive spirometer Patient denies any fever, chills, sweats, lightheadedness, dizziness, vision changes, CP, palpitations, edema, wheezing, cough, abdominal pain, nausea, vomiting, diarrhea, urinary symptoms, melena, numbness/tingling, weakness, muscle/joint pain, anxiety/depression, active bleeding. (Mireille Bowre ., PA-C) Medications Current Inpatient Medications Medications (Trade) Dose Ordered Sig/Ravin Route Start Time Stop Time Status Last Admin Dose Admin Magnesium Hydroxide (Milk Of Magnesia Susp) 30 ml Q6H PRN PO 07/24/17 12:45 08/23/17 12:44 Polyethylene (Miralax Powder Packet) 17 gm DAILY PRN PO 07/24/17 12:45 08/23/17 12:44 Ondansetron HCl (Zofran Inj) 4 mg Q6H PRN IV 07/24/17 12:45 08/23/17 12:44 Miscellaneous Information (Consult) 1 ea UD PRN N/A 07/24/17 12:45 08/23/17 12:44 Piperacillin Sod/ Tazobactam Sod 3.375 gm/Dextrose 115 ml @ 28.75 mls/ hr Q8H IV 07/24/17 16:00 08/03/17 15:59 07/26/17 08:04 28.75 MLS/HR Miscellaneous Information (Consult) 1 ea UD PRN N/A 07/24/17 12:45 08/23/17 12:44 Hydromorphone HCl (Dilaudid Inj) 0.5 mg Q3H PRN IV 07/24/17 12:45 08/07/17 12:44 07/26/17 10:11 0.5 MG Albuterol (Ventolin Hfa Inhaler) 2 puffs Q6H PRN INH 07/24/17 13:30 08/23/17 13:29 Aspirin (Ecotrin Tab) 81 mg QAM PO 07/25/17 09:00 08/24/17 08:59 07/26/17 09:02 81 MG Atorvastatin Calcium (Lipitor Tab) 80 mg QAM PO 07/25/17 09:00 08/24/17 08:59 07/26/17 09:02 80 MG Clopidogrel Bisulfate (plAVix TAB) 75 mg QAM PO 07/25/17 09:00 08/24/17 08:59 07/26/17 09:02 75 MG Levothyroxine Sodium (Synthroid Tab) 100 mcg DAILYBB PO 07/25/17 06:00 08/24/17 05:59 07/26/17 06:27 100 MCG Losartan Potassium (coZAAR TAB) 50 mg QAM PO 07/25/17 09:00 08/24/17 08:59 07/26/17 09:01 50 MG Multivitamins (Multivitamin Tab) 1 tab QAM PO 07/25/17 09:00 08/24/17 08:59 07/26/17 09:03 1 TAB Nitroglycerin (Nitrostat Tab) 0.4 mg UD PRN UT 07/24/17 13:30 08/23/17 13:29 Sertraline HCl (Zoloft Tab) 50 mg QAM PO 07/25/17 09:00 08/24/17 08:59 07/26/17 09:03 50 MG Vitamin B Complex/ Vit C/Folic Acid (Nephrocaps) 1 cap BID PO 07/24/17 21:00 08/23/17 20:59 07/26/17 09:02 1 CAP Ascorbic Acid (Vitamin C Tab) 1,000 mg QAM PO 07/25/17 09:00 08/24/17 08:59 07/26/17 09:02 1,000 MG Metoprolol Succinate (Toprol Xl Tab) 50 mg DAILY PO 07/25/17 09:00 08/24/17 08:59 07/26/17 09:02 50 MG Acetaminophen (Tylenol Tab) 650 mg Q6H PRN PO 07/24/17 19:15 08/23/17 19:14 07/25/17 22:40 650 MG Ketorolac Tromethamine (Toradol Inj) 15 mg Q6H PRN IV. 07/24/17 19:15 07/29/17 19:14 07/26/17 08:04 15 MG Lactobacillus Acidophilus (Lactinex Granules Pack) 1 gm TIDM PO 07/26/17 08:30 08/25/17 08:29 07/26/17 08:06 1 GM Potassium Chloride (Klor-Con Tab) 20 meq QAM PO 07/26/17 09:00 08/25/17 08:59 07/26/17 10:03 20 MEQ Vancomycin HCl 1250 mg/Sodium Chloride 275 ml @ 125 mls/hr Q12@1000,2200 IV 07/26/17 10:00 08/05/17 09:59 07/26/17 10:03 125 MLS/HR Heparin Sodium (Porcine) (Heparin Sq 5000 Unit/0.5ml) 5,000 unit Q12 SQ 07/26/17 21:00 08/25/17 20:59 Clindamycin Phosphate 900 mg/ Dextrose 106 ml @ 100 mls/hr Q8H IV 07/26/17 12:30 07/28/17 12:29 Ioversol (Optiray 320) 100 ml UD PRN IV 07/26/17 12:00 07/30/17 11:59 (Mireille Bower ., PA-C) Objective Vital Signs Date Time Temp Pulse Resp B/P (MAP) Pulse Ox O2 Delivery O2 Flow Rate FiO2 07/26/17 07:45 93 Nasal Cannula 3.0 07/26/17 07:45 76 Room Air 07/26/17 07:44 37.6 76 20 146/82 (103) 91 Room Air 07/26/17 04:45 36.7 07/26/17 00:05 Nasal Cannula 4.0 07/25/17 23:36 38.1 87 18 130/67 (88) 95 Nasal Cannula 4.0 07/25/17 22:37 39.3 07/25/17 16:06 38.3 87 19 115/66 (82) 95 Nasal Cannula 4.0 07/25/17 13:13 98 Nasal Cannula 4.0 (Mireille Bower ., PA-C) Physical Exam General Appearance: no apparent distress, + pertinent finding (O2 NC ) Eyes: normal inspection, PERRL ENT: hearing grossly normal Neck: supple Respiratory/Chest: lungs clear, no respiratory distress, no accessory muscle use Cardiovascular: regular rate, rhythm Abdomen: normal bowel sounds, non tender, soft Extremities: no pedal edema, no calf tenderness, + swelling (+R hand ), + pertinent finding (+erythema (darker) to R hand/forearm- does not extend beyond mapping, +warmth to R hand/forearm) Neurologic/Psychiatric: alert, oriented x 3, + depressed affect Skin: normal color, warm/dry, no rash (Mireille Bower, PA-C) Laboratory Results Last 24 Hours Test 07/26/17 06:23 07/26/17 11:30 White Blood Count 14.06 K/uL Red Blood Count 3.45 M/uL Hemoglobin 11.2 g/dL Hematocrit 32.5 % Mean Corpuscular Volume 94.2 fL Mean Corpuscular Hemoglobin 32.5 pg Mean Corpuscular Hemoglobin Concent 34.5 g/dl RDW Standard Deviation 47.2 fL RDW Coefficient of Variation 13.8 % Platelet Count 203 K/uL Mean Platelet Volume 10.0 fL Sodium Level 140 mmol/L Potassium Level 3.3 mmol/L Chloride Level 106 mmol/L Carbon Dioxide Level 25 mmol/L Anion Gap 9.0 mmol/L Blood Urea Nitrogen 10 mg/dl Creatinine 0.72 mg/dl Est Creatinine Clear Calc Drug Dose 84.2 ml/min Estimated GFR () 104.8 Estimated GFR (Non- 90.4 BUN/Creatinine Ratio 13.2 Random Glucose 94 mg/dl Calcium Level 8.2 mg/dl Prothrombin Time 9.9 SECONDS Prothromb Time International Ratio 0.9 (Mireille Bower, PA-C) Diagnostic Results (CHEST FOR PE) ANGIO WITH CT DOSE: 560.15 mGycm HISTORY: 62 years-old Female presents with sialitis of the hand and hypoxia TECHNIQUE: Multiple CTA images of the chest were obtained after the intravenous administration of 93 ml Optiray 320. Coronal and sagittal MIPS were obtained from the axial data set and were submitted for review. A dose lowering technique was utilized adhering to the principles of ALARA. COMPARISON: Chest radiograph 07/25/2017. FINDINGS: CTA: Heart is mildly enlarged with coronary arterial calcifications. The thoracic aorta is normal in both course and caliber with mild degree of mixed plaquing present. Imaged great vessels are patent. There is no aortic aneurysm or dissection identified. There is tortuosity of the proximal right common carotid artery. The pulmonary arterial tree is opacified to level of the subsegmental branches and demonstrates no focal filling defects to suggest pulmonary thromboembolic disease. CT CHEST: Thyroid appears homogeneous. Mildly prominent lymph nodes of the right axillary seen measuring up to 8 mm which are nonspecific. Prominent and enlarged right hilar lymph nodes measure up to 1.6 x 1.0 cm. There are trace bilateral pleural effusions. No pneumothorax. Moderate bilateral bronchial wall thickening with patchy consolidative opacities of the lower lobes, notably within the basal segments. Scattered groundglass opacities are noted throughout the left upper lobe and lingula with areas of mosaic attenuation suggesting air trapping. Areas of mucous plugging are noted within the lung bases. There is suggestion of mild gallbladder wall thickening is only partially imaged. Soft tissues are unremarkable. Bones appear intact. IMPRESSION: 1. No acute aortic pathology or evidence of pulmonary thromboembolic disease. 2. Moderate acute bronchitis with trace bilateral pleural effusions and multifocal patchy consolidative opacities of the lower lobes, right greater then left suggesting pneumonia or aspiration pneumonitis. 3. Mild right hilar adenopathy, likely reactive. 4. Gallbladder wall appears mildly thickened, however only partially imaged. Correlate with clinical exam and patient symptoms. The above report was generated using voice recognition software. It may contain grammatical, syntax or spelling errors. Electronically signed by: Jerald Eduardo M.D. 07/26/2017 12:53 PM Dictated Date/Time: 07/26/2017 12:43 PM The status of this report is Signed. Draft = Not yet reviewed or approved by Radiologist. Signed = Reviewed and approved by Radiologist. <AttendingPhy>Lior Prado M.D.</AttendingPhy> <FamilyPhy>Carmen Flores C.R.N.P</FamilyPhy> <PrimaryPhy>Carmen Flores C.R.N.P</PrimaryPhy> <UnitNumber >[id number]</UnitNumber (Mireille Bower, ADELAIDA) Assessment and Plan Pt is a 62 yo female with a h/o CAD s/p SARAH to LAD 01/2015, HTN, HL, hypothyroidism, SI joint pain, and left hemifacial spasm, who presents to the ER for the second time in 2 days for right thumb/hand pain and swelling, along with fever. She reports noticing a small pimple on pad of right thumb 2 days ago , then she began having redness and swelling, pain, and fever. She was seen by PCP yesterday who referred her to the ER on 07/23. She had xrays which were neg for OM, was given IV Rocephin, had a WBC count of 17k, and was discharged to home on po keflex and doxycycline. She then developed worsening erythema spreading up her arm and continued fevers at home. In the ER today, her white count was up to 22,000, she was tachycardic in the mid 90s. She was given IV daptomycin and IV Zosyn, along with morphine. She became mildly hypoxic at 88%-the states that the patient snores and has not been checked out for sleep apnea. Sepsis secondary to R thumb/hand abscess and cellulitis: - Admitted to med/surg - IV Vancomycin + Zosyn- started on 07/24 + IV Clindamycin TID- started on 07/26- ID following - IV Dilaudid, IV Toradol PRN for pain management - IV NSS @ 75 ml/hr while NPO - MRI w/out abscess or evidence of osteomyelitis - BCx NGTD - Consulted orthopedics, appreciate recommendations- s/p I&D on 07/24- cultures NGTD - ID consulted, appreciate recommendations Acute hypoxemic respiratory failure, likely secondary to multifocal PNA vs aspiration pneumonitis, ?RIOS: - CT on 07/26- no evidence of PE, multifocal PNA vs aspiration pneumonitis - O2 protocol, wean as tolerated- does not wear O2 supplement at home - DuoNeb QID and PRN for SOB/wheezing - IV antibiotics as above - Ambulation, OOB in chair, incentive spirometer - Recommend outpatient f/u for sleep study CAD s/p cardiac stenting, HTN, HLD- STABLE: - Continue Toprol-XL, Losartan, ASA, Plavix, nitroglycerin as needed, and Atorvastatin - Cardiology consulted for surgical clearance, appreciate recommendations Hypothyroidism: Continue Synthroid Anxiety: Continue Zoloft DVT prophylaxis: Heparin SQ BID Code Status: LEVEL I, FULL Dispo: Discharge to home once medically stable- no discharge needs anticipated (Mireille Bower, PA-C) Supervising Note Dr. Prado I performed a history and physical examination on the patient. I reviewed above note and agree with it. I discussed plan with APC and patient. During my face to face encounter with the patient, I answered all of the patient's questions. (Lior Prado M.D.)
[2017-07-26] MEDS: CLINDAMYCIN IV 900 MG in DEXTROSE 5% 100ML 100 ML IV SCH ×2 (14:19→20:18)
[2017-07-26] MEDS: ACETAMINOPHEN 325 MG TAB PO PRN (15:40)
[2017-07-26] MEDS: ALBUT/IPRATROP 3MG/0.5MG NEB 3 ML VIAL INH SCH ×2 (15:42→18:34)
[2017-07-26] MEDS ORDERED: OXYCODONE HCL 10 MG TABCR (OXYCONTIN) PO PRN (16:00)
[2017-07-26] MEDS: OXYCODONE HCL IR 5 MG TAB (IMMEDIATE RELEASE) PO PRN (19:44)
[2017-07-26] MEDS: HEPARIN SOD 5000 UNIT/0.5 ML CARP SQ SCH (20:25)
[2017-07-27] MEDS: PIPERACILL/TAZOBAC IV 3.375 GM in DEXTROSE 5% 100ML 100 ML IV SCH ×3 (00:13→16:31)
[2017-07-27] MEDS: KETOROLAC TROMETHAMINE 15 MG/ML VIAL IV. PRN ×4 (00:20→23:23)
[2017-07-27] MEDS: CLINDAMYCIN IV 900 MG in DEXTROSE 5% 100ML 100 ML IV SCH ×2 (03:51→12:58)
[2017-07-27] MEDS: OXYCODONE HCL IR 5 MG TAB (IMMEDIATE RELEASE) PO PRN ×3 (04:12→19:58)
[2017-07-27 05:45] LABS: HEMATOCRIT 31.5 % (37-47); HEMOGLOBIN 10.8 g/dL (12.0-16.0); MEAN CELL VOLUME 92.9 fL (80-100); MEAN CORPUSCULAR HEMOGLOBIN 31.9 pg (25-34); MEAN CORPUSCULAR HGB CONC 34.3 g/dl (32-36); MEAN PLATELET VOLUME 9.6 fL (7.4-10.4); PLATELET COUNT 235 K/uL (130-400); RED CELL DISTRIBUTION WIDTH CV 13.7 % (11.5-14.5); RED CELL DISTRIBUTION WIDTH SD 46.5 fL (36.4-46.3); WHITE BLOOD COUNT 10.41 K/uL (4.8-10.8)
[2017-07-27] MEDS: LEVOTHYROXINE 100 MCG TAB PO SCH (06:11)
[2017-07-27 06:18] LABS: CALCIUM 7.7 mg/dl (8.5-10.1); CREATININE 0.92 mg/dl (0.60-1.20); POTASSIUM 3.3 mmol/L (3.5-5.1)
[2017-07-27 07:03] VITALS: BP 141/73; PULSE 82; TEMP 37.7; O2SAT 97
[2017-07-27 07:12] VITALS: PULSE 77; O2SAT 97
[2017-07-27] MEDS: ALBUT/IPRATROP 3MG/0.5MG NEB 3 ML VIAL INH SCH (07:12)
[2017-07-27] MEDS: LACTOBACILLUS ACIDOPHILUS 1 GM PACK PO SCH ×3 (08:44→18:44)
[2017-07-27] MEDS: SERTRALINE HCL 50 MG TAB PO SCH (08:52)
[2017-07-27] MEDS: METOPROLOL SUCC 50MG EXT REL TAB PO SCH (08:52)
[2017-07-27] MEDS: NEPHROCAPS PO SCH ×2 (08:52→21:43)
[2017-07-27] MEDS: MULTIVITAMIN TAB PO SCH (08:52)
[2017-07-27] MEDS: LOSARTAN POTASSIUM 50 MG TAB PO SCH (08:52)
[2017-07-27] MEDS: ATORVASTATIN 40 MG TAB PO SCH (08:53)
[2017-07-27] MEDS: ASCORBIC ACID 500 MG TAB PO SCH (08:53)
[2017-07-27] MEDS: CLOPIDOGREL BISULFATE 75 MG TAB PO SCH (08:53)
[2017-07-27] MEDS: POTASSIUM CHLORIDE 20 MEQ TABCR PO SCH (08:53)
[2017-07-27] MEDS: ASPIRIN 81 MG ECTAB PO SCH (08:53)
[2017-07-27] MEDS: HEPARIN SOD 5000 UNIT/0.5 ML CARP SQ SCH ×2 (08:56→21:51)
[2017-07-27] MEDS ORDERED: POTASSIUM CHLORIDE 20 MEQ TABCR PO ONE (09:00)
[2017-07-27] MEDS ORDERED: VANCOMYCIN TROUGH ONE (09:30)
[2017-07-27] MEDS: VANCOMYCIN INJ 1,250 MG in SODIUM CHLORIDE 0.9% 250ML 250 ML IV SCH ×2 (10:36→20:00)
--- NOTE | 2017-07-27 11:23 | Hospitalist Progress Note ---
Hospitalist Progress Note Date of Service Jul 27, 2017. (Mireille Bower ., PA-C) Subjective Pt evaluation today including: conversation w/ patient, conversation w/ family ( at bedside ), physical exam, lab review, review of inpatient medication list Voiding: no voiding problems Patient resting in bed. O2 2L NC on- weaned from 4L yesterday. Denies SOB or cough. Patient requesting to stop DuoNebs due to causing increased pain in R arm cellulitis- made PRN for SOB or wheezing. Eating and drinking OK. R cellulitis- seems to be slightly improving. Pain is well controlled. Patient denies any fever, chills, sweats, lightheadedness, dizziness, vision changes, CP, palpitations, edema, SOB, wheezing, cough, abdominal pain, nausea, vomiting, diarrhea, urinary symptoms, melena, numbness/tingling, weakness, muscle/joint pain, anxiety/depression, active bleeding, or new skin discoloration/changes. (Mireille Bower ., PA-C) Medications Current Inpatient Medications Medications (Trade) Dose Ordered Sig/Ravin Route Start Time Stop Time Status Last Admin Dose Admin Magnesium Hydroxide (Milk Of Magnesia Susp) 30 ml Q6H PRN PO 07/24/17 12:45 08/23/17 12:44 Polyethylene (Miralax Powder Packet) 17 gm DAILY PRN PO 07/24/17 12:45 08/23/17 12:44 Ondansetron HCl (Zofran Inj) 4 mg Q6H PRN IV 07/24/17 12:45 08/23/17 12:44 Miscellaneous Information (Consult) 1 ea UD PRN N/A 07/24/17 12:45 08/23/17 12:44 Piperacillin Sod/ Tazobactam Sod 3.375 gm/Dextrose 115 ml @ 28.75 mls/ hr Q8H IV 07/24/17 16:00 08/03/17 15:59 07/27/17 07:56 28.75 MLS/HR Miscellaneous Information (Consult) 1 ea UD PRN N/A 07/24/17 12:45 08/23/17 12:44 Hydromorphone HCl (Dilaudid Inj) 0.5 mg Q3H PRN IV 07/24/17 12:45 08/07/17 12:44 07/26/17 10:11 0.5 MG Albuterol (Ventolin Hfa Inhaler) 2 puffs Q6H PRN INH 07/24/17 13:30 08/23/17 13:29 Aspirin (Ecotrin Tab) 81 mg QAM PO 07/25/17 09:00 08/24/17 08:59 07/27/17 08:53 81 MG Atorvastatin Calcium (Lipitor Tab) 80 mg QAM PO 07/25/17 09:00 08/24/17 08:59 07/27/17 08:53 80 MG Clopidogrel Bisulfate (plAVix TAB) 75 mg QAM PO 07/25/17 09:00 08/24/17 08:59 07/27/17 08:53 75 MG Levothyroxine Sodium (Synthroid Tab) 100 mcg DAILYBB PO 07/25/17 06:00 08/24/17 05:59 07/27/17 06:11 100 MCG Losartan Potassium (coZAAR TAB) 50 mg QAM PO 07/25/17 09:00 08/24/17 08:59 07/27/17 08:52 50 MG Multivitamins (Multivitamin Tab) 1 tab QAM PO 07/25/17 09:00 08/24/17 08:59 07/27/17 08:52 1 TAB Nitroglycerin (Nitrostat Tab) 0.4 mg UD PRN UT 07/24/17 13:30 08/23/17 13:29 Sertraline HCl (Zoloft Tab) 50 mg QAM PO 07/25/17 09:00 08/24/17 08:59 07/27/17 08:52 50 MG Vitamin B Complex/ Vit C/Folic Acid (Nephrocaps) 1 cap BID PO 07/24/17 21:00 08/23/17 20:59 07/27/17 08:52 1 CAP Ascorbic Acid (Vitamin C Tab) 1,000 mg QAM PO 07/25/17 09:00 08/24/17 08:59 07/27/17 08:53 1,000 MG Metoprolol Succinate (Toprol Xl Tab) 50 mg DAILY PO 07/25/17 09:00 08/24/17 08:59 07/27/17 08:52 50 MG Acetaminophen (Tylenol Tab) 650 mg Q6H PRN PO 07/24/17 19:15 08/23/17 19:14 07/26/17 15:40 650 MG Ketorolac Tromethamine (Toradol Inj) 15 mg Q6H PRN IV. 07/24/17 19:15 07/29/17 19:14 07/27/17 08:48 15 MG Lactobacillus Acidophilus (Lactinex Granules Pack) 1 gm TIDM PO 07/26/17 08:30 08/25/17 08:29 07/27/17 08:44 1 GM Vancomycin HCl 1250 mg/Sodium Chloride 275 ml @ 125 mls/hr Q12@1000,2200 IV 07/26/17 10:00 08/05/17 09:59 07/27/17 10:36 125 MLS/HR Heparin Sodium (Porcine) (Heparin Sq 5000 Unit/0.5ml) 5,000 unit Q12 SQ 07/26/17 21:00 08/25/17 20:59 07/27/17 08:56 5,000 UNIT Clindamycin Phosphate 900 mg/ Dextrose 106 ml @ 100 mls/hr Q8H IV 07/26/17 12:30 07/28/17 12:29 07/27/17 03:51 100 MLS/HR Ioversol (Optiray 320) 100 ml UD PRN IV 07/26/17 12:00 07/30/17 11:59 Albuterol/ Ipratropium (Duoneb) 3 ml Q2H PRN INH 07/26/17 13:15 08/25/17 13:14 Oxycodone HCl (Roxicodone Immediate Rel Tab) `1-2 tabs for pain 1 tab ... Q6H PRN PO 07/26/17 18:30 08/09/17 18:29 07/27/17 07:55 10 MG (Mireille Bower, ADELAIDA) Objective Vital Signs Date Time Temp Pulse Resp B/P (MAP) Pulse Ox O2 Delivery O2 Flow Rate FiO2 07/27/17 07:12 77 16 97 Room Air 07/27/17 07:03 37.7 82 20 141/73 (95) 97 Nasal Cannula 2.0 07/26/17 23:46 37.6 85 16 142/81 (101) 98 Nasal Cannula 2.0 07/26/17 22:21 93 Nasal Cannula 2.0 07/26/17 22:20 88 Room Air 07/26/17 19:45 Room Air 07/26/17 18:34 80 16 95 Room Air 07/26/17 16:36 36.9 07/26/17 15:43 82 18 97 Nasal Cannula 2.0 07/26/17 15:36 38.6 86 18 143/78 (99) 97 Nasal Cannula 3.0 (Mireille Bower PA-C) Physical Exam General Appearance: no apparent distress, + pertinent finding (O2 NC ) Eyes: normal inspection, PERRL ENT: hearing grossly normal Neck: supple Respiratory/Chest: lungs clear, no respiratory distress, no accessory muscle use Cardiovascular: regular rate, rhythm Abdomen: normal bowel sounds, non tender, soft Extremities: no pedal edema, no calf tenderness, + swelling (R hand ), + pertinent finding (+R hand/forearm erythema and warmth, no obvious drainage) Neurologic/Psychiatric: alert, oriented x 3, + depressed affect Skin: normal color, warm/dry, no rash (Mireille Bower, JEVON-C) Laboratory Results Last 24 Hours Test 07/26/17 11:30 07/27/17 05:27 07/27/17 09:41 Prothrombin Time 9.9 SECONDS Prothromb Time International Ratio 0.9 White Blood Count 10.41 K/uL Red Blood Count 3.39 M/uL Hemoglobin 10.8 g/dL Hematocrit 31.5 % Mean Corpuscular Volume 92.9 fL Mean Corpuscular Hemoglobin 31.9 pg Mean Corpuscular Hemoglobin Concent 34.3 g/dl RDW Standard Deviation 46.5 fL RDW Coefficient of Variation 13.7 % Platelet Count 235 K/uL Mean Platelet Volume 9.6 fL Sodium Level 136 mmol/L Potassium Level 3.3 mmol/L Chloride Level 103 mmol/L Carbon Dioxide Level 27 mmol/L Anion Gap 6.0 mmol/L Blood Urea Nitrogen 7 mg/dl Creatinine 0.92 mg/dl Est Creatinine Clear Calc Drug Dose 65.9 ml/min Estimated GFR () 77.9 Estimated GFR (Non- 67.2 BUN/Creatinine Ratio 7.5 Random Glucose 104 mg/dl Calcium Level 7.7 mg/dl Vancomycin Level Trough 10.7 mcg/ml (Mireille Bower PA-C) Assessment and Plan Pt is a 62 yo female with a h/o CAD s/p SARAH to LAD 01/2015, HTN, HL, hypothyroidism, SI joint pain, and left hemifacial spasm, who presents to the ER for the second time in 2 days for right thumb/hand pain and swelling, along with fever. She reports noticing a small pimple on pad of right thumb 2 days ago , then she began having redness and swelling, pain, and fever. She was seen by PCP yesterday who referred her to the ER on 07/23. She had xrays which were neg for OM, was given IV Rocephin, had a WBC count of 17k, and was discharged to home on po keflex and doxycycline. She then developed worsening erythema spreading up her arm and continued fevers at home. In the ER today, her white count was up to 22,000, she was tachycardic in the mid 90s. She was given IV daptomycin and IV Zosyn, along with morphine. She became mildly hypoxic at 88%-the states that the patient snores and has not been checked out for sleep apnea. Sepsis secondary to R thumb/hand abscess and cellulitis: - Admitted to med/surg - IV Vancomycin + Zosyn- started on 07/24 + IV Clindamycin TID- started on 07/26- ID following - IV Dilaudid, IV, Toradol PRN, Oxycodone PO PRN for pain management - IV NSS @ 75 ml/hr while NPO - MRI w/out abscess or evidence of osteomyelitis - BCx NGTD - Consulted orthopedics, appreciate recommendations- s/p I&D on 07/24- cultures NGTD, no surgical intervention at this time - ID consulted, appreciate recommendations Acute hypoxemic respiratory failure, likely secondary to multifocal PNA vs aspiration pneumonitis, ?RIOS: - CT on 07/26- no evidence of PE, multifocal PNA vs aspiration pneumonitis - O2 protocol, wean as tolerated- does not wear O2 supplement at home - DuoNeb PRN for SOB/wheezing - IV antibiotics as above - Ambulation, OOB in chair, incentive spirometer - Recommend outpatient f/u for sleep study Mild hypokalemia: Replace w/ PO KCL supplement, follow PRP and replace PRN CAD s/p cardiac stenting, HTN, HLD- STABLE: - Continue Toprol-XL, Losartan, ASA, Plavix, nitroglycerin PRN, and Atorvastatin - Cardiology consulted for surgical clearance, appreciate recommendations Hypothyroidism: Continue Synthroid Anxiety: Continue Zoloft DVT prophylaxis: Heparin SQ BID Code Status: LEVEL I, FULL Dispo: Discharge to home once medically stable- no discharge needs anticipated (Mireille Bower, PA-C) Supervising Note Dr. Prado I performed a history and physical examination on the patient. I reviewed above note and agree with it. I discussed plan with APC and patient. During my face to face encounter with the patient, I answered all of the patient's questions. (Lior Prado M.D.)
--- NOTE | 2017-07-27 12:03 | Pharmacy Progress Note ---
Pharmacy Abx Dose Short Note Date of Service Jul 27, 2017. Assessment & Plan Assessment * 62 year old female receiving Vancomycin/Zosyn/Clinda for treatment of R hand cellulitis * Cultures (blood and joint fluid) are negative to date, but patient remains febrile. * Clinda added yesterday by ID for anti-toxin effect. * Vanc level obtained this mornin.7mcg/mL Plan Vancomycin * Trough level of 10.7 mcg/mL is slightly lower than desired * Change to 1250 mg IV every 10 hours * Goal trough level for cellulitis w/ unknown C/S: 12 to 18 mcg/mL * If patient continues on vancomycin, will consider re-drawing trough level on Zosyn 3.375gm IV q8h Clindamycin 900mg IV q8h Pharmacy will continue to follow and will adjust dose/frequency as necessary. Thank you.
--- NOTE | 2017-07-27 14:08 | Infectious Disease Progress Nt ---
Progress Note Date of Service Jul 27, 2017. Subjective Pt evaluation today including: conversation w/ patient, physical exam, chart review, lab review, review of studies, conversation w/ process consultant, review of inpatient medication list Patient states that the pain in her right hand and arm has improved since yesterday. Decreasing erythema. No fever. White count better. Cultures remain negative to date. All Other Systems: Reviewed and Negative Medications Current Inpatient Medications Medications (Trade) Dose Ordered Sig/Ravin Route Start Time Stop Time Status Last Admin Dose Admin Magnesium Hydroxide (Milk Of Magnesia Susp) 30 ml Q6H PRN PO 07/24/17 12:45 08/23/17 12:44 Polyethylene (Miralax Powder Packet) 17 gm DAILY PRN PO 07/24/17 12:45 08/23/17 12:44 Ondansetron HCl (Zofran Inj) 4 mg Q6H PRN IV 07/24/17 12:45 08/23/17 12:44 Miscellaneous Information (Consult) 1 ea UD PRN N/A 07/24/17 12:45 08/23/17 12:44 Piperacillin Sod/ Tazobactam Sod 3.375 gm/Dextrose 115 ml @ 28.75 mls/ hr Q8H IV 07/24/17 16:00 08/03/17 15:59 07/27/17 07:56 28.75 MLS/HR Miscellaneous Information (Consult) 1 ea UD PRN N/A 07/24/17 12:45 08/23/17 12:44 Hydromorphone HCl (Dilaudid Inj) 0.5 mg Q3H PRN IV 07/24/17 12:45 08/07/17 12:44 07/26/17 10:11 0.5 MG Albuterol (Ventolin Hfa Inhaler) 2 puffs Q6H PRN INH 07/24/17 13:30 08/23/17 13:29 Aspirin (Ecotrin Tab) 81 mg QAM PO 07/25/17 09:00 08/24/17 08:59 07/27/17 08:53 81 MG Atorvastatin Calcium (Lipitor Tab) 80 mg QAM PO 07/25/17 09:00 08/24/17 08:59 07/27/17 08:53 80 MG Clopidogrel Bisulfate (plAVix TAB) 75 mg QAM PO 07/25/17 09:00 08/24/17 08:59 07/27/17 08:53 75 MG Levothyroxine Sodium (Synthroid Tab) 100 mcg DAILYBB PO 07/25/17 06:00 08/24/17 05:59 07/27/17 06:11 100 MCG Losartan Potassium (coZAAR TAB) 50 mg QAM PO 07/25/17 09:00 08/24/17 08:59 07/27/17 08:52 50 MG Multivitamins (Multivitamin Tab) 1 tab QAM PO 07/25/17 09:00 08/24/17 08:59 07/27/17 08:52 1 TAB Nitroglycerin (Nitrostat Tab) 0.4 mg UD PRN UT 07/24/17 13:30 08/23/17 13:29 Sertraline HCl (Zoloft Tab) 50 mg QAM PO 07/25/17 09:00 08/24/17 08:59 07/27/17 08:52 50 MG Vitamin B Complex/ Vit C/Folic Acid (Nephrocaps) 1 cap BID PO 07/24/17 21:00 08/23/17 20:59 07/27/17 08:52 1 CAP Ascorbic Acid (Vitamin C Tab) 1,000 mg QAM PO 07/25/17 09:00 08/24/17 08:59 07/27/17 08:53 1,000 MG Metoprolol Succinate (Toprol Xl Tab) 50 mg DAILY PO 07/25/17 09:00 08/24/17 08:59 07/27/17 08:52 50 MG Acetaminophen (Tylenol Tab) 650 mg Q6H PRN PO 07/24/17 19:15 08/23/17 19:14 07/26/17 15:40 650 MG Ketorolac Tromethamine (Toradol Inj) 15 mg Q6H PRN IV. 07/24/17 19:15 07/29/17 19:14 07/27/17 08:48 15 MG Lactobacillus Acidophilus (Lactinex Granules Pack) 1 gm TIDM PO 07/26/17 08:30 08/25/17 08:29 07/27/17 12:56 1 GM Heparin Sodium (Porcine) (Heparin Sq 5000 Unit/0.5ml) 5,000 unit Q12 SQ 07/26/17 21:00 08/25/17 20:59 07/27/17 08:56 5,000 UNIT Clindamycin Phosphate 900 mg/ Dextrose 106 ml @ 100 mls/hr Q8H IV 07/26/17 12:30 07/28/17 12:29 07/27/17 12:58 100 MLS/HR Ioversol (Optiray 320) 100 ml UD PRN IV 07/26/17 12:00 07/30/17 11:59 Albuterol/ Ipratropium (Duoneb) 3 ml Q2H PRN INH 07/26/17 13:15 08/25/17 13:14 Oxycodone HCl (Roxicodone Immediate Rel Tab) `1-2 tabs for pain 1 tab ... Q6H PRN PO 07/26/17 18:30 08/09/17 18:29 07/27/17 07:55 10 MG Vancomycin HCl 1250 mg/Sodium Chloride 275 ml @ 125 mls/hr Q10H IV 07/27/17 20:00 08/04/17 07:59 Objective Vital Signs Date Time Temp Pulse Resp B/P (MAP) Pulse Ox O2 Delivery O2 Flow Rate FiO2 07/27/17 07:12 77 16 97 Room Air 07/27/17 07:03 37.7 82 20 141/73 (95) 97 Nasal Cannula 2.0 07/26/17 23:46 37.6 85 16 142/81 (101) 98 Nasal Cannula 2.0 07/26/17 22:21 93 Nasal Cannula 2.0 07/26/17 22:20 88 Room Air 07/26/17 19:45 Room Air 07/26/17 18:34 80 16 95 Room Air 07/26/17 16:36 36.9 07/26/17 15:43 82 18 97 Nasal Cannula 2.0 07/26/17 15:36 38.6 86 18 143/78 (99) 97 Nasal Cannula 3.0 Physical Exam General Appearance: WD/WN, no apparent distress Eyes: normal inspection ENT: normal ENT inspection, pharynx normal Neck: supple, no adenopathy, thyroid normal, trachea midline Respiratory/Chest: chest non-tender, lungs clear, normal breath sounds, no respiratory distress Cardiovascular: regular rate, rhythm, no gallop, no murmur Abdomen: normal bowel sounds, non tender, soft, no organomegaly Extremities: no calf tenderness, normal capillary refill Neurologic/Psychiatric: alert, oriented x 3 Skin: normal color, + pertinent finding (Right hand erythema and swelling improved, decreasing right arm erythema) Lymphatic: no adenopathy Laboratory Results RUN DATE: 07/27/17 [facility] LAB PAGE 1 RUN TIME: 08 Specimen Inquiry PATIENT: TOPHER MORALES LOC: [place] U # : [id number] AGE/SX: 62/F ROOM: [facility] REG : 07/24/[address]: Lior Prado M.D. : 1955 BED: 1 DIS : STATUS: ADM IN TLOC: SPEC #: [id number] LINDA: 07/24/17 STATUS: RES REQ #: [id number] RECD: 07/24/[address]: Roman Rush PA SOURCE: [facility] ENTR: 07/24/17 [facility] DR: Santhosh Ulloa M.D. SPDESC: Esvin SEWELL James S., M.D. Maurer, Candace CDalilaRRhonda Britt MD ORDERED: AER/RYAN CULTSMR COMMENTS: Has Specimen Been Obtained/Collected? Y Procedure Result Verified Site GRAM STAIN Final 07/24/17-2033 RESULT FEW WBCs SEEN NO ORGANISMS SEEN OR AER/RYAN CULT Preliminary 07/27/17 NO GROWTH TO DATE. Last 24 Hours Test 07/27/17 05:27 07/27/17 09:41 White Blood Count 10.41 K/uL Red Blood Count 3.39 M/uL Hemoglobin 10.8 g/dL Hematocrit 31.5 % Mean Corpuscular Volume 92.9 fL Mean Corpuscular Hemoglobin 31.9 pg Mean Corpuscular Hemoglobin Concent 34.3 g/dl RDW Standard Deviation 46.5 fL RDW Coefficient of Variation 13.7 % Platelet Count 235 K/uL Mean Platelet Volume 9.6 fL Sodium Level 136 mmol/L Potassium Level 3.3 mmol/L Chloride Level 103 mmol/L Carbon Dioxide Level 27 mmol/L Anion Gap 6.0 mmol/L Blood Urea Nitrogen 7 mg/dl Creatinine 0.92 mg/dl Est Creatinine Clear Calc Drug Dose 65.9 ml/min Estimated GFR () 77.9 Estimated GFR (Non- 67.2 BUN/Creatinine Ratio 7.5 Random Glucose 104 mg/dl Calcium Level 7.7 mg/dl Vancomycin Level Trough 10.7 mcg/ml Patient Name: TOPHER MORALES Unit Number: [id number] Dictated: 07/26/171242 Transcribed: 07/26/171242 JRB Printed Date/Time: [~ rep prt dt]/[~ rep prt tm] [~ rep ct labl] - [~ rep ct ivnm] [facility] [place] [address] Dictated: 07/26/171242 Transcribed: 07/26/171242 JRB Printed Date/Time: [~ rep prt dt]/[~ rep prt tm] [~ rep ct labl] - [~ rep ct ivnm] [~ rep ct add3]] (CHEST FOR PE) ANGIO WITH CT DOSE: 560.15 mGycm HISTORY: 62 years-old Female presents with sialitis of the hand and hypoxia TECHNIQUE: Multiple CTA images of the chest were obtained after the intravenous administration of 93 ml Optiray 320. Coronal and sagittal MIPS were obtained from the axial data set and were submitted for review. A dose lowering technique was utilized adhering to the principles of ALARA. COMPARISON: Chest radiograph 07/25/2017. FINDINGS: CTA: Heart is mildly enlarged with coronary arterial calcifications. The thoracic aorta is normal in both course and caliber with mild degree of mixed plaquing present. Imaged great vessels are patent. There is no aortic aneurysm or dissection identified. There is tortuosity of the proximal right common carotid artery. The pulmonary arterial tree is opacified to level of the subsegmental branches and demonstrates no focal filling defects to suggest pulmonary thromboembolic disease. CT CHEST: Thyroid appears homogeneous. Mildly prominent lymph nodes of the right axillary seen measuring up to 8 mm which are nonspecific. Prominent and enlarged right hilar lymph nodes measure up to 1.6 x 1.0 cm. There are trace bilateral pleural effusions. No pneumothorax. Moderate bilateral bronchial wall thickening with patchy consolidative opacities of the lower lobes, notably within the basal segments. Scattered groundglass opacities are noted throughout the left upper lobe and lingula with areas of mosaic attenuation suggesting air trapping. Areas of mucous plugging are noted within the lung bases. There is suggestion of mild gallbladder wall thickening is only partially imaged. Soft tissues are unremarkable. Bones appear intact. IMPRESSION: 1. No acute aortic pathology or evidence of pulmonary thromboembolic disease. 2. Moderate acute bronchitis with trace bilateral pleural effusions and multifocal patchy consolidative opacities of the lower lobes, right greater then left suggesting pneumonia or aspiration pneumonitis. 3. Mild right hilar adenopathy, likely reactive. 4. Gallbladder wall appears mildly thickened, however only partially imaged. Correlate with clinical exam and patient symptoms. The above report was generated using voice recognition software. It may contain grammatical, syntax or spelling errors. Electronically signed by: Jerald Eduardo M.D. 07/26/2017 12:53 PM Dictated Date/Time: 07/26/2017 12:43 PM The status of this report is Signed. Draft = Not yet reviewed or approved by Radiologist. Signed = Reviewed and approved by Radiologist. <AttendingPhy>Lior Prado M.D.</AttendingPhy> <FamilyPhy>Carmen Flores C.R.N.P</FamilyPhy> <PrimaryPhy>Carmen Flores C.R.N.P</PrimaryPhy> <UnitNumber >[id number]</UnitNumber> <VisitNumber>[id number]</VisitNumber> <PatientName> TOPHER MORALES Neo</PatientName> <DateOfBirth>1955</DateOfBirth> <Location> C.3E</Location> <ServiceDate>07/24/17</ServiceDate> <MNE>ESINDI</MNE> < OrderingPhy>Mireille Bower PA-C</OrderingPhy> <OrderingPhyMNE>f rep ord dr lopez< /OrderingPhyMNE> <DictatingPhyMNE>f rep dict dr lopez</DictatingPhyMNE> <CCListMNE >f rep ct john</CCListMNE> <AdmittingPhyMNE>f pt admit dr lopez</AdmittingPhyMNE> < AttendingPhyMNE>f pt attend dr lopez</AttendingPhyMNE> <ConsultingPhyMNE>f pt consult dr lopez</ConsultingPhyMNE> <FamilyPhyMNE>f pt fam dr lopez</FamilyPhyMNE> <OtherPhyMNE>f pt other dr lopez</OtherPhyMNE> < PrimaryPhyMNE>f pt prim care dr lopez</PrimaryPhyMNE> <ReferringPhyMNE>f pt referring dr lopez</ReferringPhyMNE> Assessment and Plan Severe right hand and arm infection in the setting what appears to be a puncture of the right thumb with possible secondary pneumonia. Certainly has appearance of acute streptococcal infection, but given that she has cats, pasteurella and staph also possibility. Patient should be continued on vancomycin and Zosyn for now, and I have added clindamycin for 48 hours for possible antitoxin effects. May need follow-up MRI scan of the hand if swelling worsens. Will follow.
--- NOTE | 2017-07-27 15:38 | PROGRESS NOTE ---
DATE: 07/27/2017 DATE: 07/27/2017 SUBJECTIVE: A 62-year-old white female admitted with a right hand cellulitis. She seems to be doing a little bit better today. Feeling better at least medically. Feeling less ill. Seems to have a little less pain. A little bit more finger motion. OBJECTIVE: VITAL SIGNS: Temperature 37.7. Vital signs stable. PHYSICAL EXAMINATION: GENERAL: Reveals a pleasant, middle-aged female. I had to wake her this afternoon to visit her. EXTREMITIES: Examination of the right hand reveals diffuse swelling. She has got quite a bit more just dark redness on the dorsum of her hand. Not really cellulitic but just dark redness. She continues to have diffuse hand swelling. There is left cellulitis in her forearm. She can flex and extend her fingers slightly. It does seem to be slightly improved. There is no obvious fluctuance or abscess pocket. LABORATORY DATA: Her white cell count 10.41. Cultures are no growth to date. ASSESSMENT: A 62-year-old white female with right hand infection consistent with cellulitis. Very slow response to antibiotics. Her exam is pretty minimally changed. There are no signs of septic joint, flexor tenosynovitis or abscess collection. PLAN: Continue IV antibiotics. We will continue to observe her daily. If something seems to localize or I think there is an abscess or then that would warrant surgical intervention. Short of that treatment continued IV antibiotics until she clinically responds and turns around. Her white cell count is improved which is positive sign. Any orthopedic questions can be directed to me at [phone].
[2017-07-27 15:52] VITALS: BP 131/74; PULSE 73; TEMP 37.5; O2SAT 94
[2017-07-27 18:50] VITALS: TEMP 36.6
[2017-07-27 23:05] VITALS: BP 154/83; PULSE 86; TEMP 36.6; O2SAT 95
[2017-07-28] MEDS: CLINDAMYCIN IV 900 MG in DEXTROSE 5% 100ML 100 ML IV SCH ×2 (00:04→08:14)
[2017-07-28] MEDS: PIPERACILL/TAZOBAC IV 3.375 GM in DEXTROSE 5% 100ML 100 ML IV SCH ×3 (01:00→16:26)
[2017-07-28] MEDS: OXYCODONE HCL IR 5 MG TAB (IMMEDIATE RELEASE) PO PRN ×4 (03:53→21:58)
[2017-07-28] MEDS: VANCOMYCIN INJ 1,250 MG in SODIUM CHLORIDE 0.9% 250ML 250 ML IV SCH ×2 (05:59→16:13)
[2017-07-28] MEDS: KETOROLAC TROMETHAMINE 15 MG/ML VIAL IV. PRN ×3 (06:06→20:24)
[2017-07-28 06:11] LABS: HEMATOCRIT 32.8 % (37-47); HEMOGLOBIN 11.2 g/dL (12.0-16.0); MEAN CELL VOLUME 93.4 fL (80-100); MEAN CORPUSCULAR HEMOGLOBIN 31.9 pg (25-34); MEAN CORPUSCULAR HGB CONC 34.1 g/dl (32-36); MEAN PLATELET VOLUME 9.4 fL (7.4-10.4); PLATELET COUNT 262 K/uL (130-400); RED CELL DISTRIBUTION WIDTH CV 13.8 % (11.5-14.5); RED CELL DISTRIBUTION WIDTH SD 47.2 fL (36.4-46.3); WHITE BLOOD COUNT 9.86 K/uL (4.8-10.8)
[2017-07-28] MEDS: LEVOTHYROXINE 100 MCG TAB PO SCH (06:31)
[2017-07-28 06:55] LABS: CALCIUM 8.3 mg/dl (8.5-10.1); CREATININE 0.89 mg/dl (0.60-1.20); POTASSIUM 3.8 mmol/L (3.5-5.1)
[2017-07-28 07:39] VITALS: BP 139/72; PULSE 69; TEMP 36.8; O2SAT 96
--- NOTE | 2017-07-28 08:11 | PROGRESS NOTE ---
DATE: 07/28/2017 SUBJECTIVE: A 62-year-old white female admitted with a right hand infection/cellulitis. She seems to be doing significantly better this morning. The swelling seems to be improved. Her finger motion is improved and the pain has improved. OBJECTIVE: VITAL SIGNS: Temperature 36.6. Vital signs stable. EXTREMITIES: Examination of the right hand revealed continued redness on the dorsal side of her hand and wrist area. She does have wrinkling of the skin and the swelling has improved. She can flex and extend her fingers slightly easier. There is no evidence of abscess or fluid collections. She is neurologically intact. LABORATORY DATA: White cell count is 9.86. CULTURE RESULTS: Culture results have been no growth to date. ASSESSMENT: A 62-year-old white female admitted with right hand cellulitis. It has taken a while, but she seems to be clinically improving both by lab parameters as well as clinically at this point. There is no deductible abscess or fluid collections to drain. I anticipate that she will continue to make continued improvements at this point. I think she will probably need 2-3 more days of IV antibiotics. We will continue to follow her. Any orthopedic questions can be directed to me at [phone].
[2017-07-28] MEDS: LACTOBACILLUS ACIDOPHILUS 1 GM PACK PO SCH ×3 (08:52→18:16)
[2017-07-28] MEDS: ASCORBIC ACID 500 MG TAB PO SCH (08:53)
[2017-07-28] MEDS: METOPROLOL SUCC 50MG EXT REL TAB PO SCH (09:00)
[2017-07-28] MEDS: HEPARIN SOD 5000 UNIT/0.5 ML CARP SQ SCH ×2 (09:00→20:34)
[2017-07-28] MEDS: SERTRALINE HCL 50 MG TAB PO SCH (10:11)
[2017-07-28] MEDS: CLOPIDOGREL BISULFATE 75 MG TAB PO SCH (10:11)
[2017-07-28] MEDS: MULTIVITAMIN TAB PO SCH (10:11)
[2017-07-28] MEDS: NEPHROCAPS PO SCH ×2 (10:11→20:32)
[2017-07-28] MEDS: ATORVASTATIN 40 MG TAB PO SCH (10:12)
[2017-07-28] MEDS: ASPIRIN 81 MG ECTAB PO SCH (10:12)
[2017-07-28] MEDS: LOSARTAN POTASSIUM 50 MG TAB PO SCH (10:12)
[2017-07-28 10:50] VITALS: PULSE 75; TEMP 37.1; O2SAT 90
[2017-07-28 15:22] VITALS: BP 150/85; PULSE 76; TEMP 37.1; O2SAT 92
--- NOTE | 2017-07-28 20:47 | Progress Note ---
Subjective Date of Service: Jul 28, 2017. Subjective Pt evaluation today including: conversation w/ patient, conversation w/ family , physical exam, chart review, lab review, review of studies, conversation w/ mental health consultant, review of inpatient medication list Voiding: no voiding problems pt is seen and examined by me. Pt seems to be doing significantly better this morning. The swelling seems to be improved. Her finger motion is improved and the pain has improved. Problem List Medical Problems: (1) CAD (coronary artery disease), [place] coronary artery Status: Chronic (2) CAD S/P percutaneous coronary angioplasty Status: Chronic (3) Cellulitis of right thumb Status: Acute (4) Hyperlipidemia Status: Chronic (5) Hypothyroidism Status: Chronic Review of Systems All Other Systems: Reviewed and Negative Objective Vital Signs Date Time Temp Pulse Resp B/P (MAP) Pulse Ox O2 Delivery O2 Flow Rate FiO2 07/28/17 19:30 Room Air 07/28/17 15:22 37.1 76 16 150/85 (106) 92 Room Air 07/28/17 10:50 37.1 75 16 90 Room Air 07/28/17 08:17 Nasal Cannula 07/28/17 07:39 36.8 69 16 139/72 (94) 96 2.0 07/27/17 23:05 36.6 86 16 154/83 (106) 95 Room Air Physical Exam General Appearance: no apparent distress Eyes: EOMI Neck: supple Respiratory/Chest: lungs clear, normal breath sounds Cardiovascular: regular rate, rhythm Extremities: normal capillary refill, + pertinent finding (Examination of the right hand revealed continued redness on the) Neurologic/Psychiatric: alert, oriented x 3 Skin: no rash Lymphatic: no adenopathy Laboratory Results Last 24 Hours Test 07/28/17 05:47 White Blood Count 9.86 K/uL Red Blood Count 3.51 M/uL Hemoglobin 11.2 g/dL Hematocrit 32.8 % Mean Corpuscular Volume 93.4 fL Mean Corpuscular Hemoglobin 31.9 pg Mean Corpuscular Hemoglobin Concent 34.1 g/dl RDW Standard Deviation 47.2 fL RDW Coefficient of Variation 13.8 % Platelet Count 262 K/uL Mean Platelet Volume 9.4 fL Sodium Level 137 mmol/L Potassium Level 3.8 mmol/L Chloride Level 103 mmol/L Carbon Dioxide Level 29 mmol/L Anion Gap 5.0 mmol/L Blood Urea Nitrogen 7 mg/dl Creatinine 0.89 mg/dl Est Creatinine Clear Calc Drug Dose 68.1 ml/min Estimated GFR () 81.1 Estimated GFR (Non- 70.0 BUN/Creatinine Ratio 8.1 Random Glucose 104 mg/dl Calcium Level 8.3 mg/dl Assessment and Plan A 62-year-old white female admitted with right hand cellulitis. Right Hand cellulitis: - improving - ortho and Id recommendation appreciated. - continue antibiotics for now. Acute hypoxemic respiratory failure, likely secondary to multifocal PNA vs aspiration pneumonitis - CT on 07/26- no evidence of PE, multifocal PNA vs aspiration pneumonitis - O2 protocol, wean as tolerated- does not wear O2 supplement at home - DuoNeb PRN for SOB/wheezing - IV antibiotics as above - Ambulation, OOB in chair, incentive spirometer - Recommend outpatient f/u for sleep study Mild hypokalemia: Replace w/ PO KCL supplement, follow PRP and replace PRN CAD s/p cardiac stenting, HTN, HLD- STABLE: - Continue Toprol-XL, Losartan, ASA, Plavix, nitroglycerin PRN, and Atorvastatin - Cardiology consulted for surgical clearance, appreciate recommendations Hypothyroidism: Continue Synthroid Anxiety: Continue Zoloft DVT prophylaxis: Heparin SQ BID Code Status: LEVEL I, FULL Continued [facility] stay due to: multiple IV medications needed Discharge planning: home
[2017-07-28 22:40] VITALS: BP 163/84; PULSE 74; TEMP 37.2; O2SAT 95
[2017-07-29] MEDS: OXYCODONE HCL IR 5 MG TAB (IMMEDIATE RELEASE) PO PRN ×4 (00:19→21:30)
[2017-07-29] MEDS: PIPERACILL/TAZOBAC IV 3.375 GM in DEXTROSE 5% 100ML 100 ML IV SCH ×4 (00:22→23:34)
[2017-07-29] MEDS: VANCOMYCIN INJ 1,250 MG in SODIUM CHLORIDE 0.9% 250ML 250 ML IV SCH ×3 (01:30→21:40)
[2017-07-29] MEDS: KETOROLAC TROMETHAMINE 15 MG/ML VIAL IV. PRN ×2 (02:36→11:45)
[2017-07-29 03:29] VITALS: BP 152/75; PULSE 79; O2SAT 88; O2SAT 97
[2017-07-29] MEDS: LEVOTHYROXINE 100 MCG TAB PO SCH (05:36)
[2017-07-29 07:11] VITALS: BP 168/93; PULSE 73; TEMP 36.8; O2SAT 99
--- NOTE | 2017-07-29 07:56 | PROGRESS NOTE ---
DATE: 07/29/2017 SUBJECTIVE: A 62-year-old female admitted with right arm and hand cellulitis. She continues to make very gradual improvement daily. Little bit less pain. No further fevers. She is feeling better. OBJECTIVE: VITAL SIGNS: Temperature 36.8. Vital signs stable. She has been hypertensive. EXTREMITIES: Examination of the right hand reveals diffuse swelling. The swelling has improved some and she got some wrinkling of her skin. The redness is also improved, but still got some purplish and red discoloration. There are no obvious signs of abscess formation. The patient can flex and extend her fingers and make about 50% of the fist. LABORATORY DATA: Cultures have been no growth. ASSESSMENT: A 62-year-old female with right upper extremity, hand and arm cellulitis, slowly improving. There are no signs of abscess or fluid collections or joint infection. This has certainly been slow and improving, but seems to be slowly improving. PLAN: Continue IV antibiotics. Any orthopedic questions can be directed to me at [phone]. There is no surgical indication at this time.
[2017-07-29] MEDS: LACTOBACILLUS ACIDOPHILUS 1 GM PACK PO SCH ×3 (08:35→18:18)
[2017-07-29] MEDS: ASCORBIC ACID 500 MG TAB PO SCH (08:37)
[2017-07-29] MEDS: CLOPIDOGREL BISULFATE 75 MG TAB PO SCH (08:38)
[2017-07-29] MEDS: ASPIRIN 81 MG ECTAB PO SCH (08:38)
[2017-07-29] MEDS: NEPHROCAPS PO SCH ×2 (08:38→21:40)
[2017-07-29] MEDS: ATORVASTATIN 40 MG TAB PO SCH (08:38)
[2017-07-29] MEDS: SERTRALINE HCL 50 MG TAB PO SCH (08:39)
[2017-07-29] MEDS: MULTIVITAMIN TAB PO SCH (08:39)
[2017-07-29] MEDS: METOPROLOL SUCC 50MG EXT REL TAB PO SCH (08:39)
[2017-07-29] MEDS: LOSARTAN POTASSIUM 50 MG TAB PO SCH (08:40)
[2017-07-29] MEDS: HEPARIN SOD 5000 UNIT/0.5 ML CARP SQ SCH ×2 (08:48→21:39)
--- NOTE | 2017-07-29 11:28 | Progress Note ---
Subjective Date of Service: Jul 29, 2017. Subjective Pt evaluation today including: conversation w/ patient, physical exam, chart review, lab review, review of studies, conversation w/ [employer] consultant patient is seen and examined, her hand swelling and redness slightly went down, slowly but some progress. Problem List Medical Problems: (1) CAD (coronary artery disease), [place] coronary artery Status: Chronic (2) CAD S/P percutaneous coronary angioplasty Status: Chronic (3) Cellulitis of right thumb Status: Acute (4) Hyperlipidemia Status: Chronic (5) Hypothyroidism Status: Chronic Review of Systems Musculoskeletal: + swelling, + problem reported (right hand) All Other Systems: Reviewed and Negative Objective Vital Signs Date Time Temp Pulse Resp B/P (MAP) Pulse Ox O2 Delivery O2 Flow Rate FiO2 07/29/17 10:11 Room Air 07/29/17 07:11 36.8 73 16 168/93 (118) 99 Room Air 07/29/17 03:29 79 152/75 (100) 88 Room Air 07/29/17 03:29 97 Nasal Cannula 2.0 07/28/17 22:40 37.2 74 18 163/84 (110) 95 Room Air 07/28/17 19:30 Room Air 07/28/17 15:22 37.1 76 16 150/85 (106) 92 Room Air Physical Exam General Appearance: no apparent distress Neck: supple Cardiovascular: regular rate, rhythm, no murmur Abdomen: soft Extremities: + pertinent finding (right hand selling and erythema improved, tender to touch, no motor weakness, able to move hand but can not make the fist) Neurologic/Psychiatric: no motor/sensory deficits, alert, oriented x 3 Skin: no rash Laboratory Results Last 24 Hours Test 07/29/17 11:21 Assessment and Plan A 62-year-old white female admitted with right hand cellulitis. Right Hand cellulitis: - improving, swelling slight down as well as wbc. - ortho and Id recommendation appreciated. - continue antibiotics for now. Acute hypoxemic respiratory failure, likely secondary to multifocal PNA vs aspiration pneumonitis - CT on 07/26- no evidence of PE, multifocal PNA vs aspiration pneumonitis - O2 protocol, wean as tolerated- does not wear O2 supplement at home - DuoNeb PRN for SOB/wheezing - IV antibiotics as above - Ambulation, OOB in chair, incentive spirometer - Recommend outpatient f/u for sleep study Mild hypokalemia: Replace w/ PO KCL supplement, follow PRP and replace PRN CAD s/p cardiac stenting, HTN, HLD- STABLE: - Continue Toprol-XL, Losartan, ASA, Plavix, nitroglycerin PRN, and Atorvastatin - Cardiology consulted for surgical clearance, appreciate recommendations Hypothyroidism: Continue Synthroid Anxiety: Continue Zoloft DVT prophylaxis: Heparin SQ BID Code Status: LEVEL I, FULL Continued [facility] stay due to: multiple IV medications needed Discharge planning: home
[2017-07-29] MEDS ORDERED: VANCOMYCIN TROUGH ONE (11:30)
--- NOTE | 2017-07-29 12:54 | Pharmacy Progress Note ---
Pharmacy Abx Dose Short Note Date of Service Jul 29, 2017. Assessment & Plan Assessment 62 year old female receiving vancomycin for treatment of SSTI. Day # 5 of antimicrobial therapy. Plan Vancomycin * Trough level of 17.4 mcg/mL is therapeutic. * Continue dose of 1250 mg IV every 10 hours * Will repeat level as clinically indicated Pharmacy will continue to follow and will adjust dose/frequency as necessary. Thank you.
[2017-07-29 15:40] VITALS: BP 156/86; PULSE 68; TEMP 37; O2SAT 93
[2017-07-29] MEDS: HYDROmorphone INJ 0.5 MG/0.5 ML SYR IV PRN (19:43)
[2017-07-29] MEDS: ACETAMINOPHEN 325 MG TAB PO PRN (21:44)
[2017-07-29 21:48] VITALS: TEMP 37.8
[2017-07-29 23:10] VITALS: BP 159/79; PULSE 76; TEMP 36.8; O2SAT 91
[2017-07-30 03:45] VITALS: BP 104/68; PULSE 79; TEMP 36.7; O2SAT 96
[2017-07-30] MEDS: OXYCODONE HCL IR 5 MG TAB (IMMEDIATE RELEASE) PO PRN ×3 (04:25→20:35)
[2017-07-30] MEDS: LEVOTHYROXINE 100 MCG TAB PO SCH (05:40)
[2017-07-30 07:20] VITALS: BP 175/84; PULSE 83; TEMP 37.3; O2SAT 90
--- NOTE | 2017-07-30 07:23 | PROGRESS NOTE ---
DATE: 07/30/2017 SUBJECTIVE: A 62-year-old white female admitted with a right hand infection and cellulitis. She continues to make gradual improvements. Having a little bit less pain. OBJECTIVE: VITAL SIGNS: Temperature 36.7. Vital signs stable. GENERAL: This is a pleasant, middle-aged female. She is lying in bed, looks pretty comfortable. EXTREMITIES: Examination of the right hand reveals some moderate swelling. It has clearly improved over the past couple of days. It is still swollen. Her skin is wrinkling. She can flex extend her fingers and make nearly a half a fist. It is diffusely painful. Cultures show no growth. ASSESSMENT: A 62-year-old white female admitted with a right hand and arm infection and cellulitis. Making gradual improvements. There are no signs of abscess or infected joint or infected tendon sheath. PLAN: At this point, continued antibiotic management. I still think she needs couple more days of IV antibiotics. We will start some therapy for digital range of motion. Any orthopedic questions can be directed at [phone]. There is no surgical indication, I do not anticipate there will be.
[2017-07-30] MEDS: HYDROmorphone INJ 0.5 MG/0.5 ML SYR IV PRN (07:27)
[2017-07-30] MEDS: VANCOMYCIN INJ 1,250 MG in SODIUM CHLORIDE 0.9% 250ML 250 ML IV SCH ×2 (07:35→18:22)
[2017-07-30] MEDS: PIPERACILL/TAZOBAC IV 3.375 GM in DEXTROSE 5% 100ML 100 ML IV SCH ×3 (07:41→23:29)
[2017-07-30 08:07] LABS: CREATININE 0.98 mg/dl (0.60-1.20)
[2017-07-30] MEDS: LOSARTAN POTASSIUM 50 MG TAB PO SCH (09:07)
[2017-07-30] MEDS: CLOPIDOGREL BISULFATE 75 MG TAB PO SCH (09:08)
[2017-07-30] MEDS: SERTRALINE HCL 50 MG TAB PO SCH (09:08)
[2017-07-30] MEDS: MULTIVITAMIN TAB PO SCH (09:08)
[2017-07-30] MEDS: METOPROLOL SUCC 50MG EXT REL TAB PO SCH (09:08)
[2017-07-30] MEDS: ASPIRIN 81 MG ECTAB PO SCH (09:08)
[2017-07-30] MEDS: ATORVASTATIN 40 MG TAB PO SCH (09:08)
[2017-07-30] MEDS: ASCORBIC ACID 500 MG TAB PO SCH (09:10)
[2017-07-30] MEDS: LACTOBACILLUS ACIDOPHILUS 1 GM PACK PO SCH ×3 (09:10→18:21)
[2017-07-30] MEDS: HEPARIN SOD 5000 UNIT/0.5 ML CARP SQ SCH ×2 (09:14→20:46)
[2017-07-30] MEDS: NEPHROCAPS PO SCH ×2 (09:29→20:34)
[2017-07-30 10:10] VITALS: BP 155/84; PULSE 93; O2SAT 93
--- NOTE | 2017-07-30 10:14 | CARDIOLOGY PROGRESS NOTE ---
DATE: 07/30/2017 SUBJECTIVE: Mrs. Vang is resting comfortably at bedside without complaints of chest pain or dyspnea. Right upper extremity discomfort has improved. OBJECTIVE: VITAL SIGNS: Blood pressure is 170/84 with a regular pulse of 80. Respiratory rate is 16 and the patient is afebrile at 37.3 degrees Celsius. Saturations 90% on room air. NECK: Supple with full carotid upstrokes. No carotid bruits. Jugular venous pressure is flat at 90 degrees. There is no thyromegaly. CARDIOVASCULAR: Reveals a regular rhythm with normal S1 and S2. Heart sounds are distant. No obvious murmurs. LUNGS: Clear without rales, rhonchi, or wheezes. ABDOMEN: Soft, nontender without bruits. EXTREMITIES: Reveal erythema and edema of the right upper extremity distal to the elbow. No pretibial edema. DATA: Creatinine is normal at 0.98 with a creatinine clearance of 61.9. IMPRESSION AND PLAN: 1. Right upper extremity cellulitis -- per Dr. White and infectious disease. 2. Coronary artery disease -- status post left anterior descending drug-eluting stent in 2014. Quiescent under current medical regimen. 3. Hypertension -- controlled. 4. Hypercholesterolemia -- continue statin. 5. Mild mitral regurgitation.
[2017-07-30] MEDS ORDERED: KETOROLAC TROMETHAMINE 15 MG/ML VIAL IM PRN (10:45)
[2017-07-30] MEDS: IBUPROFEN 600 MG TAB PO PRN ×2 (12:40→19:04)
--- NOTE | 2017-07-30 14:31 | Hospitalist Progress Note ---
Hospitalist Progress Note Date of Service Jul 30, 2017. (Mireille Bower ., PA-C) Subjective Pt evaluation today including: conversation w/ patient, conversation w/ family ( at bedside ), physical exam, lab review, review of inpatient medication list Voiding: no voiding problems Patient sitting in bedside chair. Eating and drinking OK. Pain to R hand has been uncontrolled since stopping IV Toradol- discussed w/ pharm and recommends against Toradol due to 5 days- Ibuprofen ordered. R hand cellulitis- erythema and swelling continue to improve. SOB has resolved. Now on RA. Patient denies any fever, chills, sweats, lightheadedness, dizziness, vision changes, CP, palpitations, edema, SOB, wheezing, cough, abdominal pain, nausea, vomiting, diarrhea, urinary symptoms, melena, numbness/tingling, weakness, muscle/joint pain, anxiety/depression, active bleeding, or new skin discoloration/changes. (Mireille Bower ., PA-C) Medications Current Inpatient Medications Medications (Trade) Dose Ordered Sig/Ravin Route Start Time Stop Time Status Last Admin Dose Admin Magnesium Hydroxide (Milk Of Magnesia Susp) 30 ml Q6H PRN PO 07/24/17 12:45 08/23/17 12:44 Polyethylene (Miralax Powder Packet) 17 gm DAILY PRN PO 07/24/17 12:45 08/23/17 12:44 Ondansetron HCl (Zofran Inj) 4 mg Q6H PRN IV 07/24/17 12:45 08/23/17 12:44 Miscellaneous Information (Consult) 1 ea UD PRN N/A 07/24/17 12:45 08/23/17 12:44 Piperacillin Sod/ Tazobactam Sod 3.375 gm/Dextrose 115 ml @ 28.75 mls/ hr Q8H IV 07/24/17 16:00 08/03/17 15:59 07/30/17 07:41 28.75 MLS/HR Miscellaneous Information (Consult) 1 ea UD PRN N/A 07/24/17 12:45 08/23/17 12:44 Hydromorphone HCl (Dilaudid Inj) 0.5 mg Q3H PRN IV 07/24/17 12:45 08/07/17 12:44 07/30/17 07:27 0.5 MG Albuterol (Ventolin Hfa Inhaler) 2 puffs Q6H PRN INH 07/24/17 13:30 08/23/17 13:29 Aspirin (Ecotrin Tab) 81 mg QAM PO 07/25/17 09:00 08/24/17 08:59 07/30/17 09:08 81 MG Atorvastatin Calcium (Lipitor Tab) 80 mg QAM PO 07/25/17 09:00 08/24/17 08:59 07/30/17 09:08 80 MG Clopidogrel Bisulfate (plAVix TAB) 75 mg QAM PO 07/25/17 09:00 08/24/17 08:59 07/30/17 09:08 75 MG Levothyroxine Sodium (Synthroid Tab) 100 mcg DAILYBB PO 07/25/17 06:00 08/24/17 05:59 07/30/17 05:40 100 MCG Losartan Potassium (coZAAR TAB) 50 mg QAM PO 07/25/17 09:00 08/24/17 08:59 07/30/17 09:07 50 MG Multivitamins (Multivitamin Tab) 1 tab QAM PO 07/25/17 09:00 08/24/17 08:59 07/30/17 09:08 1 TAB Nitroglycerin (Nitrostat Tab) 0.4 mg UD PRN UT 07/24/17 13:30 08/23/17 13:29 Sertraline HCl (Zoloft Tab) 50 mg QAM PO 07/25/17 09:00 08/24/17 08:59 07/30/17 09:08 50 MG Vitamin B Complex/ Vit C/Folic Acid (Nephrocaps) 1 cap BID PO 07/24/17 21:00 08/23/17 20:59 07/30/17 09:29 1 CAP Ascorbic Acid (Vitamin C Tab) 1,000 mg QAM PO 07/25/17 09:00 08/24/17 08:59 07/30/17 09:10 1,000 MG Metoprolol Succinate (Toprol Xl Tab) 50 mg DAILY PO 07/25/17 09:00 08/24/17 08:59 07/30/17 09:08 50 MG Acetaminophen (Tylenol Tab) 650 mg Q6H PRN PO 07/24/17 19:15 08/23/17 19:14 07/29/17 21:44 650 MG Lactobacillus Acidophilus (Lactinex Granules Pack) 1 gm TIDM PO 07/26/17 08:30 08/25/17 08:29 07/30/17 12:40 1 GM Heparin Sodium (Porcine) (Heparin Sq 5000 Unit/0.5ml) 5,000 unit Q12 SQ 07/26/17 21:00 08/25/17 20:59 07/30/17 09:14 5,000 UNIT Albuterol/ Ipratropium (Duoneb) 3 ml Q2H PRN INH 07/26/17 13:15 08/25/17 13:14 Oxycodone HCl (Roxicodone Immediate Rel Tab) `1-2 tabs for pain 1 tab ... Q6H PRN PO 07/26/17 18:30 08/09/17 18:29 07/30/17 10:31 10 MG Vancomycin HCl 1250 mg/Sodium Chloride 275 ml @ 125 mls/hr Q10H IV 07/27/17 20:00 08/04/17 07:59 07/30/17 07:35 125 MLS/HR Ibuprofen (Motrin Tab) 600 mg TID PRN PO 07/30/17 11:00 08/29/17 10:59 07/30/17 12:40 600 MG (Mireille Bower, PA-C) Objective Vital Signs Date Time Temp Pulse Resp B/P (MAP) Pulse Ox O2 Delivery O2 Flow Rate FiO2 07/30/17 07:20 37.3 83 16 175/84 (114) 90 Room Air 07/30/17 07:15 Room Air 07/30/17 03:45 36.7 79 16 104/68 (80) 96 Room Air 07/29/17 23:40 Room Air 07/29/17 23:10 36.8 76 18 159/79 (105) 91 Room Air 07/29/17 21:48 37.8 07/29/17 15:45 Room Air 07/29/17 15:40 37.0 68 16 156/86 (109) 93 Room Air (Mireille Bower, PA-C) Physical Exam General Appearance: no apparent distress, + obese Eyes: normal inspection, PERRL ENT: hearing grossly normal Neck: supple Respiratory/Chest: lungs clear, no respiratory distress, no accessory muscle use Cardiovascular: regular rate, rhythm Abdomen: normal bowel sounds, non tender, soft Extremities: no pedal edema, no calf tenderness, + swelling (R hand w/ + swelling and erythema which are improving, noted blisters to R thumb ) Neurologic/Psychiatric: alert, oriented x 3, + depressed affect Skin: normal color, warm/dry, no rash (Mireille Bower ., ADELAIDA) Laboratory Results Last 24 Hours Test 07/30/17 07:06 Creatinine 0.98 mg/dl Est Creatinine Clear Calc Drug Dose 61.9 ml/min Estimated GFR () 72.2 Estimated GFR (Non- 62.3 (Mireille Bower ., PELONC) Assessment and Plan Pt is a 62 yo female with a h/o CAD s/p SARAH to LAD 01/2015, HTN, HL, hypothyroidism, SI joint pain, and left hemifacial spasm, who presents to the ER for the second time in 2 days for right thumb/hand pain and swelling, along with fever. She reports noticing a small pimple on pad of right thumb 2 days ago , then she began having redness and swelling, pain, and fever. She was seen by PCP yesterday who referred her to the ER on 07/23. She had xrays which were neg for OM, was given IV Rocephin, had a WBC count of 17k, and was discharged to home on po keflex and doxycycline. She then developed worsening erythema spreading up her arm and continued fevers at home. In the ER today, her white count was up to 22,000, she was tachycardic in the mid 90s. She was given IV daptomycin and IV Zosyn, along with morphine. She became mildly hypoxic at 88%-the states that the patient snores and has not been checked out for sleep apnea. Sepsis secondary to R thumb/hand abscess and cellulitis: - Admitted to med/surg - IV Vancomycin + Zosyn- started on 07/24 + IV Clindamycin TID- started on 07/26- ID following - IV Dilaudid, IV, Ibuprofen PRN, Oxycodone PO PRN for pain management - IV NSS @ 75 ml/hr while NPO - MRI w/out abscess or evidence of osteomyelitis - BCx NGTD - Consulted orthopedics, appreciate recommendations- s/p I&D on 07/24- cultures NGTD, no surgical intervention at this time - ID consulted, appreciate recommendations Acute hypoxemic respiratory failure, likely secondary to multifocal PNA vs aspiration pneumonitis, ?RIOS: - CT on 07/26- no evidence of PE, multifocal PNA vs aspiration pneumonitis - O2 protocol, wean as tolerated- does not wear O2 supplement at home- now on RA - DuoNeb PRN for SOB/wheezing - IV antibiotics as above - Ambulation, OOB in chair, incentive spirometer - Recommend outpatient f/u for sleep study Mild hypokalemia- RESOLVED: Replace w/ PO KCL supplement, follow PRP and replace PRN CAD s/p cardiac stenting, HTN, HLD- STABLE: - Continue Toprol-XL, Losartan, ASA, Plavix, nitroglycerin PRN, and Atorvastatin - Cardiology consulted for surgical clearance, appreciate recommendations Hypothyroidism: Continue Synthroid Anxiety: Continue Zoloft DVT prophylaxis: Heparin SQ BID Code Status: LEVEL I, FULL Dispo: Discharge to home once medically stable- no discharge needs anticipated (Mireille Bower, PAYolieC) I personally interviewed and examined the patient. I agree with history of present illness and physical exam mentioned above, I also performed my own history taking and examination. Past medical history and review of system has been obtained by myself I reviewed all pertinent labs and studies Reviewed current medications I discussed and formulated of the assessment and plan mentioned above. Please refer to the Summary mentioned below. General Appearance: not in acute distress Eyes: normal Sclerae, extraocular muscle intact ENT: hearing grossly normal Neck: supple Respiratory/Chest: normal air entry bilateral ,no respiratory distress, no accessory muscle use Cardiovascular: regular rate, rhythm, no murmur Abdomen: non tender, soft, no masses Extremities: no edema Neurologic/Psychiatric: Awake alert oriented times place and person moves all extremities sensation intact cranial nerves II-12 appear to be intact Skin: normal color, warm/dry, no rash 62 years old female with past medical history of hypothyroidism, coronary artery disease status post recent SARAH stent to the ED, hypertension, dyslipidemia presented to the ED right hand cellulitis failed outpatient antibiotics Sepsis/right hand abscess/cellulitis Continue Vanco/Zosyn/clindamycin ID consult appreciated Dr. White/orthopedic consult appreciated Pain management No evidence of abscess or osteomyelitis by MRI Community-acquired multifocal pneumonia with hypoxemic respiratory failure Improved after initiation of antibiotics Continue pulmonary toilet CAD/hypertension/dyslipidemia Continue home meds Travis Bustamante MD, [facility] hospitalist group (Travis Coates MD)
[2017-07-30 15:50] VITALS: BP 130/75; PULSE 63; TEMP 37; O2SAT 93
--- NOTE | 2017-07-30 20:43 | Infectious Disease Progress Nt ---
Progress Note Date of Service Jul 30, 2017. Subjective Pt evaluation today including: conversation w/ patient, physical exam, chart review, lab review, review of studies, conversation w/ financial analysis consultant, review of inpatient medication list Pain in her right hand slowly improving. Redness starting to subside. Better range of motion. No fever. Tolerating antibiotic without apparent difficulty. All Other Systems: Reviewed and Negative Medications Current Inpatient Medications Medications (Trade) Dose Ordered Sig/Ravin Route Start Time Stop Time Status Last Admin Dose Admin Magnesium Hydroxide (Milk Of Magnesia Susp) 30 ml Q6H PRN PO 07/24/17 12:45 08/23/17 12:44 Polyethylene (Miralax Powder Packet) 17 gm DAILY PRN PO 07/24/17 12:45 08/23/17 12:44 Ondansetron HCl (Zofran Inj) 4 mg Q6H PRN IV 07/24/17 12:45 08/23/17 12:44 Miscellaneous Information (Consult) 1 ea UD PRN N/A 07/24/17 12:45 08/23/17 12:44 Piperacillin Sod/ Tazobactam Sod 3.375 gm/Dextrose 115 ml @ 28.75 mls/ hr Q8H IV 07/24/17 16:00 08/03/17 15:59 07/30/17 15:43 28.75 MLS/HR Miscellaneous Information (Consult) 1 ea UD PRN N/A 07/24/17 12:45 08/23/17 12:44 Hydromorphone HCl (Dilaudid Inj) 0.5 mg Q3H PRN IV 07/24/17 12:45 08/07/17 12:44 07/30/17 07:27 0.5 MG Albuterol (Ventolin Hfa Inhaler) 2 puffs Q6H PRN INH 07/24/17 13:30 08/23/17 13:29 Aspirin (Ecotrin Tab) 81 mg QAM PO 07/25/17 09:00 08/24/17 08:59 07/30/17 09:08 81 MG Atorvastatin Calcium (Lipitor Tab) 80 mg QAM PO 07/25/17 09:00 08/24/17 08:59 07/30/17 09:08 80 MG Clopidogrel Bisulfate (plAVix TAB) 75 mg QAM PO 07/25/17 09:00 08/24/17 08:59 07/30/17 09:08 75 MG Levothyroxine Sodium (Synthroid Tab) 100 mcg DAILYBB PO 07/25/17 06:00 08/24/17 05:59 07/30/17 05:40 100 MCG Losartan Potassium (coZAAR TAB) 50 mg QAM PO 07/25/17 09:00 08/24/17 08:59 07/30/17 09:07 50 MG Multivitamins (Multivitamin Tab) 1 tab QAM PO 07/25/17 09:00 08/24/17 08:59 07/30/17 09:08 1 TAB Nitroglycerin (Nitrostat Tab) 0.4 mg UD PRN UT 07/24/17 13:30 08/23/17 13:29 Sertraline HCl (Zoloft Tab) 50 mg QAM PO 07/25/17 09:00 08/24/17 08:59 07/30/17 09:08 50 MG Vitamin B Complex/ Vit C/Folic Acid (Nephrocaps) 1 cap BID PO 07/24/17 21:00 08/23/17 20:59 07/30/17 20:34 1 CAP Ascorbic Acid (Vitamin C Tab) 1,000 mg QAM PO 07/25/17 09:00 08/24/17 08:59 07/30/17 09:10 1,000 MG Metoprolol Succinate (Toprol Xl Tab) 50 mg DAILY PO 07/25/17 09:00 08/24/17 08:59 07/30/17 09:08 50 MG Acetaminophen (Tylenol Tab) 650 mg Q6H PRN PO 07/24/17 19:15 08/23/17 19:14 07/29/17 21:44 650 MG Lactobacillus Acidophilus (Lactinex Granules Pack) 1 gm TIDM PO 07/26/17 08:30 08/25/17 08:29 07/30/17 18:21 1 GM Heparin Sodium (Porcine) (Heparin Sq 5000 Unit/0.5ml) 5,000 unit Q12 SQ 07/26/17 21:00 08/25/17 20:59 07/30/17 09:14 5,000 UNIT Albuterol/ Ipratropium (Duoneb) 3 ml Q2H PRN INH 07/26/17 13:15 08/25/17 13:14 Oxycodone HCl (Roxicodone Immediate Rel Tab) `1-2 tabs for pain 1 tab ... Q6H PRN PO 07/26/17 18:30 08/09/17 18:29 07/30/17 20:35 10 MG Vancomycin HCl 1250 mg/Sodium Chloride 275 ml @ 125 mls/hr Q10H IV 07/27/17 20:00 08/04/17 07:59 07/30/17 18:22 125 MLS/HR Ibuprofen (Motrin Tab) 600 mg TID PRN PO 07/30/17 11:00 08/29/17 10:59 07/30/17 19:04 600 MG Objective Vital Signs Date Time Temp Pulse Resp B/P (MAP) Pulse Ox O2 Delivery O2 Flow Rate FiO2 07/30/17 15:50 37.0 63 18 130/75 (93) 93 Room Air 07/30/17 15:40 Room Air 07/30/17 10:10 93 93 07/30/17 07:20 37.3 83 16 175/84 (114) 90 Room Air 07/30/17 07:15 Room Air 07/30/17 03:45 36.7 79 16 104/68 (80) 96 Room Air 07/29/17 23:40 Room Air 07/29/17 23:10 36.8 76 18 159/79 (105) 91 Room Air 07/29/17 21:48 37.8 Physical Exam General Appearance: WD/WN, no apparent distress Eyes: normal inspection, sclerae normal ENT: normal ENT inspection, pharynx normal Neck: supple, no adenopathy, trachea midline Respiratory/Chest: chest non-tender, lungs clear, normal breath sounds, no respiratory distress Cardiovascular: regular rate, rhythm, no gallop, no murmur Abdomen: normal bowel sounds, non tender, soft, no organomegaly Extremities: no calf tenderness, normal capillary refill Neurologic/Psychiatric: alert, oriented x 3 Skin: normal color, no rash, + pertinent finding (Improving right hand and arm erythema, less right hand swelling) Lymphatic: no adenopathy Laboratory Results Last 24 Hours Test 07/30/17 07:06 Creatinine 0.98 mg/dl Est Creatinine Clear Calc Drug Dose 61.9 ml/min Estimated GFR () 72.2 Estimated GFR (Non- 62.3 Assessment and Plan Severe right hand and arm infection in the setting what appears to be a puncture of the right thumb with possible secondary pneumonia. Certainly has appearance of acute streptococcal infection, but given that she has cats, pasteurella and staph also possibility. Patient should be continued on vancomycin and Zosyn for now, but hopefully can transition to oral antibiotics in the next 1-2 days. Will discuss. Will continue to follow.
[2017-07-30 23:35] VITALS: BP 132/77; PULSE 69; TEMP 37.1; O2SAT 93
[2017-07-31] MEDS: ACETAMINOPHEN 325 MG TAB PO PRN (00:54)
[2017-07-31] MEDS: OXYCODONE HCL IR 5 MG TAB (IMMEDIATE RELEASE) PO PRN ×3 (02:38→15:00)
[2017-07-31 03:40] VITALS: TEMP 36.8
[2017-07-31] MEDS: VANCOMYCIN INJ 1,250 MG in SODIUM CHLORIDE 0.9% 250ML 250 ML IV SCH (03:46)
[2017-07-31] MEDS: LEVOTHYROXINE 100 MCG TAB PO SCH (05:50)
[2017-07-31 07:45] VITALS: BP 164/95; PULSE 69; TEMP 36.6; O2SAT 96
[2017-07-31] MEDS: IBUPROFEN 600 MG TAB PO PRN ×2 (07:47→16:20)
[2017-07-31] MEDS: PIPERACILL/TAZOBAC IV 3.375 GM in DEXTROSE 5% 100ML 100 ML IV SCH (08:15)
[2017-07-31] MEDS: METOPROLOL SUCC 50MG EXT REL TAB PO SCH (09:24)
[2017-07-31] MEDS: MULTIVITAMIN TAB PO SCH (09:24)
[2017-07-31] MEDS: LOSARTAN POTASSIUM 50 MG TAB PO SCH (09:24)
[2017-07-31] MEDS: CLOPIDOGREL BISULFATE 75 MG TAB PO SCH (09:25)
[2017-07-31] MEDS: NEPHROCAPS PO SCH (09:25)
[2017-07-31] MEDS: SERTRALINE HCL 50 MG TAB PO SCH (09:25)
[2017-07-31] MEDS: ASPIRIN 81 MG ECTAB PO SCH (09:25)
[2017-07-31] MEDS: ATORVASTATIN 40 MG TAB PO SCH (09:25)
[2017-07-31] MEDS: ASCORBIC ACID 500 MG TAB PO SCH (09:26)
[2017-07-31] MEDS: LACTOBACILLUS ACIDOPHILUS 1 GM PACK PO SCH ×2 (09:27→12:59)
[2017-07-31] MEDS: HEPARIN SOD 5000 UNIT/0.5 ML CARP SQ SCH (09:29)
[2017-07-31] MEDS ORDERED: MTR600 PO (11:44)
[2017-07-31] MEDS ORDERED: RXC5 PO (11:44)
[2017-07-31] MEDS ORDERED: DAPT500I IV (11:45)
--- NOTE | 2017-07-31 11:54 | Discharge Instructions ---
Discharge Instructions Date of Service Jul 31, 2017. Admission Reason for Admission: Cellulitis And Abscess Of Hand, Sepsis Discharge Discharge Diagnosis / Problem: Right hand cellulitis Discharge Goals Goal(s): Decrease discomfort, Improve function, Increase independence, Improve disease control, Learn about illness, Diagnostic testing, Therapeutic intervention, Prevent Disease Progression Activity Recommendations Activity Limitations: resume your previous activity . Instructions / Follow-Up Instructions / Follow-Up Right hand cellulitis (infection): IV Daptomycin once daily- home health services has been setup to help you with administration Ciprofloxacin 500 mg twice daily until prescription is completed You may take Roxicodone 5 mg every 6 hours as needed for pain control You may take Tylenol 650 mg every 4 hours as needed for pain control- do NOT exceed more than 4000 mg per day You may take Ibuprofen 600 three times a day as needed for pain control- please remember to eat when taking this medication and drink plenty of fluids Pneumonia (lung infection): You have completed treatment while inpatient with IV antibiotics for 7 days Resume all other regular home medications as prescribed FOLLOW-UPS: Please follow-up with your PCP within 5-7 days Please follow-up with Infectious Disease within 1 week Please follow-up/keep all of your subspecialty appointments Current Hospital Diet Patient's current hospital diet: AHA Diet (Heart Healthy) Discharge Diet Recommended Diet: AHA Diet (Heart Healthy) Pending Studies Studies pending at discharge: no Laboratory Results Lipid Panel Test 05/26/17 09:36 Range/Units Triglycerides Level 130 0-150 mg/dl Cholesterol Level 172 0-200 mg/dl HDL Cholesterol 54 mg/dl Cholesterol/HDL Ratio 3.2 LDL Cholesterol, Calculated 92 mg/dl Medical Emergencies . Who to Call and When: Medical Emergencies: If at any time you feel your situation is an emergency, please call 911 immediately. . Non-Emergent Contact Non-Emergency issues call your: Primary Care Provider Call Non-Emergent contact if: you have a fever, your pain is not controlled, your pain is worsening, your pain is unusual for you, your pain is concerning you, wound has increased drainage, wound has increased redness, wound has increased pain, you have any medication questions . . "Provider Documentation" section prepared by Mireille Bower. . VTE Core Measure Inpt VTE Proph given/why not?: Unfractionated heparin SQ, SCD's
[2017-07-31] MEDS ORDERED: DAPTOmycin IV 325 MG in SODIUM CHLORIDE 0.9% 50ML 50 ML IV ONE (12:00)
[2017-07-31] MEDS ORDERED: DAPTOmycin IV 325 MG in SYRINGE 0 ML IV ONE (12:00)
--- NOTE | 2017-07-31 12:02 | Discharge Summary ---
Discharge Summary Date of Service Jul 31, 2017. Discharge Summary Admission Date: Jul 24, 2017 at 12:43 Discharge Date: Jul 31, 2017 Discharge Disposition: Home with services Principal Diagnosis: R hand cellulitis Problems/Secondary Diagnoses: Sepsis secondary to R thumb/hand abscess and cellulitis Acute hypoxemic respiratory failure, likely secondary to multifocal PNA vs aspiration pneumonitis ?RIOS Mild hypokalemia CAD s/p cardiac stenting HTN HLD Hypothyroidism Anxiety Procedures: R UPPER EXT JOINT WITHOUT CLINICAL HISTORY: RIGHT HAND INFECTION pain. Infection. TECHNIQUE: Multiaxial MRI acquisition COMPARISON STUDY: None FINDINGS: Unremarkable signal characteristics of the osseous structures. No well-defined bone marrow replacing process. The structures the carpal tunnel are unremarkable. Findings of mild/moderate soft tissue edema primarily dorsal to the fingers and structures of the wrist. No evidence for a drainable abscess or collection. All ligamentous and tendinous structures are intact. No well-defined evidence for foreign body based on MRI criteria. No evidence for osteomyelitis. IMPRESSION: 1. Moderate generalized soft tissue edematous change. 2. Normal signal characteristics of the osseous structures. 3. No evidence for drainable abscess or collection. 4. No well-defined foreign body by MRI criteria 5. No evidence for osteomyelitis The above report was generated using voice recognition software. It may contain grammatical, syntax or spelling errors. Electronically signed by: Juan R Garrison M.D. 07/24/2017 10:39 PM Dictated Date/Time: 07/24/2017 10:35 PM The status of this report is Signed. Draft = Not yet reviewed or approved by Radiologist. Signed = Reviewed and approved by Radiologist. SINGLE VIEW CHEST CLINICAL HISTORY: Hypoxia. FINDINGS: An AP, portable, upright chest radiograph is compared to study dated 11/07/2013. The examination is degraded by portable technique and patient rotation. The heart is mildly enlarged. The pulmonary vasculature is noncongested. Chronic interstitial thickening is similar to previous. There are bibasilar airspace opacities. No large pleural effusion or pneumothorax is seen. The skeletal structures are osteopenic. The bony thorax is grossly intact. IMPRESSION: 1. Cardiomegaly without radiographic evidence of congestive failure. 2. There are bibasilar airspace opacities. This could represent atelectasis versus developing pneumonia. Clinical correlation will be required. Electronically signed by: Fan Rodrigues M.D. 07/25/2017 6:34 PM Dictated Date/Time: 07/25/2017 6:33 PM The status of this report is Signed. Draft = Not yet reviewed or approved by Radiologist. Signed = Reviewed and approved by Radiologist. (CHEST FOR PE) ANGIO WITH CT DOSE: 560.15 mGycm HISTORY: 62 years-old Female presents with sialitis of the hand and hypoxia TECHNIQUE: Multiple CTA images of the chest were obtained after the intravenous administration of 93 ml Optiray 320. Coronal and sagittal MIPS were obtained from the axial data set and were submitted for review. A dose lowering technique was utilized adhering to the principles of ALARA. COMPARISON: Chest radiograph 07/25/2017. FINDINGS: CTA: Heart is mildly enlarged with coronary arterial calcifications. The thoracic aorta is normal in both course and caliber with mild degree of mixed plaquing present. Imaged great vessels are patent. There is no aortic aneurysm or dissection identified. There is tortuosity of the proximal right common carotid artery. The pulmonary arterial tree is opacified to level of the subsegmental branches and demonstrates no focal filling defects to suggest pulmonary thromboembolic disease. CT CHEST: Thyroid appears homogeneous. Mildly prominent lymph nodes of the right axillary seen measuring up to 8 mm which are nonspecific. Prominent and enlarged right hilar lymph nodes measure up to 1.6 x 1.0 cm. There are trace bilateral pleural effusions. No pneumothorax. Moderate bilateral bronchial wall thickening with patchy consolidative opacities of the lower lobes, notably within the basal segments. Scattered groundglass opacities are noted throughout the left upper lobe and lingula with areas of mosaic attenuation suggesting air trapping. Areas of mucous plugging are noted within the lung bases. There is suggestion of mild gallbladder wall thickening is only partially imaged. Soft tissues are unremarkable. Bones appear intact. IMPRESSION: 1. No acute aortic pathology or evidence of pulmonary thromboembolic disease. 2. Moderate acute bronchitis with trace bilateral pleural effusions and multifocal patchy consolidative opacities of the lower lobes, right greater then left suggesting pneumonia or aspiration pneumonitis. 3. Mild right hilar adenopathy, likely reactive. 4. Gallbladder wall appears mildly thickened, however only partially imaged. Correlate with clinical exam and patient symptoms. The above report was generated using voice recognition software. It may contain grammatical, syntax or spelling errors. Electronically signed by: Jerald Eduardo M.D. 07/26/2017 12:53 PM Dictated Date/Time: 07/26/2017 12:43 PM The status of this report is Signed. Draft = Not yet reviewed or approved by Radiologist. Signed = Reviewed and approved by Radiologist PROCEDURE NOTE: Right thumb was sterilely prepped with alcohol and using aseptic technique, we aspirated a very small amount of fluid from the blister/swelling in the dorsum of the thumb. The fluid was sent for stat gram stain, aerobic and anaerobic cultures. Apply a compressive dressing to the thumb in the area of the aspiration. She tolerated this procedure well. There were no complications. Consultations: ID- Dr. Snyder Cardiology Medication Reconciliation New Medications: Ciprofloxacin (Ciprofloxacin HCl) 500 Mg Tab 500 MG PO BID for 7 Days, #14 TABS Daptomycin (Daptomycin) 500 Mg Inj 325 MG IV DAILY for 10 Days Ibuprofen (Ibuprofen) 600 Mg Tab 600 MG PO TID PRN for pain for 3 Days, #9 TAB Oxycodone HCl (Oxycodone HCl) 5 Mg Tab 5 MG PO Q6H PRN for Pain for 3 Days, #12 TAB Continued Medications: Albuterol Hfa (Ventolin Hfa) 200 Puffs/69634 Mcg Aers 2-4 PUFFS INH Q6H PRN for SOB/Wheezing, #1 INHALER Ascorbic Acid (Vitamin C) 1,000 Mg Tab 1000 MG PO QAM Aspirin (Aspirin Ec) 81 Mg Tab 81 MG PO QAM Atorvastatin (Lipitor) 80 Mg Tab 80 MG PO QAM Clopidogrel (Plavix) 75 Mg Tab 75 MG PO QAM Levothyroxine Sodium (Synthroid) 100 Mcg Tab 100 MCG PO QAM Losartan Potassium (Cozaar) 50 Mg Tab 50 MG PO QAM Metoprolol Succinate (Toprol Xl) 50 Mg Tab 50 MG PO DAILY for 30 Days, #30 TAB Multiple Vitamin (Multivitamin) 1 Tab Tab 1 TAB PO QAM Nitroglycerin (Nitrostat) 0.4 Mg Tab 0.4 MG UT UD PRN for Chest Pain Sertraline Hcl (Zoloft) 50 Mg Tab 50 MG PO QAM Vitamin B Cmplx/Vitc/Folic Ac (Nephrocaps) Cap 1 CAP PO BID, CAP Discontinued Medications: Cephalexin Monohydrate (Keflex) 500 Mg Cap 500 MG PO QID, #40 CAP Doxycycline Monohydrate (Monodox) 100 Mg Cap 100 MG PO BID, #20 CAP Hydrocodone/Acetaminophen 5MG/325MG ([place] 5MG/325MG) Tab 1-2 TABLETS PO Q4 PRN for Pain, #15 TAB For Initial Treatment Naproxen (Aleve) 220 Mg Tab 2 TABS PO QAM Referrals At Discharge Follow up Referrals: Family Practice Referral - Within 1-2 Weeks with Carmen Flores C.R.N.P Infectious Disease - Within 1 Week with Daren Snyder MD Discharge Exam Review of Systems: Constitutional: No fever, No chills, No sweats, No weakness, No fatigue Eyes: No worsening of vision ENT: No hearing loss Respiratory: No cough, No sputum, No wheezing, No shortness of breath Cardiovascular: No chest pain, No edema, No palpitations Abdomen: No pain, No nausea, No vomiting, No diarrhea, No constipation, No GI bleeding Musculoskeletal: + joint pain (R hand), + muscle pain (R hand ), + swelling (R hand), No calf pain Genitourinary - Female: No dysuria, No hematuria Neurologic: No weakness, No numbness/tingling Psychiatric: No depression symptoms, No anxiety Endocrine: No fatigue Hematologic / Lymphatic: No abnormal bleeding/bruising Integumentary: No rash, No itch, No new/changing skin lesions Physical Exam: General Appearance: no apparent distress, + obese Eyes: normal inspection, PERRL ENT: hearing grossly normal Neck: supple Respiratory/Chest: lungs clear, no respiratory distress, no accessory muscle use Cardiovascular: regular rate, rhythm Abdomen / GI: normal bowel sounds, non tender, soft Extremities: no calf tenderness, no pedal edema, + swelling (R hand- improving ), + pertinent finding (Mild erythema now localized to R hand, no obvious drainage, noted blisters to R thumb ) Neurologic/Psychiatric: alert, normal mood/affect, oriented x 3 Skin: normal color, warm/dry, no rash Hospital Course Pt is a 62 yo female with a h/o CAD s/p SARAH to LAD 01/2015, HTN, HL, hypothyroidism, SI joint pain, and left hemifacial spasm, who presents to the ER for the second time in 2 days for right thumb/hand pain and swelling, along with fever. She reports noticing a small pimple on pad of right thumb 2 days ago , then she began having redness and swelling, pain, and fever. She was seen by PCP yesterday who referred her to the ER on 07/23. She had xrays which were neg for OM, was given IV Rocephin, had a WBC count of 17k, and was discharged to home on po keflex and doxycycline. She then developed worsening erythema spreading up her arm and continued fevers at home. In the ER today, her white count was up to 22,000, she was tachycardic in the mid 90s. She was given IV daptomycin and IV Zosyn, along with morphine. She became mildly hypoxic at 88%-the states that the patient snores and has not been checked out for sleep apnea. Sepsis secondary to R thumb/hand abscess and cellulitis: - Admitted to med/surg - IV Vancomycin + Zosyn- started on 07/24 + IV Clindamycin TID- started on 07/26 x3 days- ID following - IV Dilaudid, IV, Ibuprofen PRN, Oxycodone PO PRN, Tylenol PRN for pain management - IV NSS @ 75 ml/hr while NPO - MRI w/out abscess or evidence of osteomyelitis - BCx NGTD - Consulted orthopedics, appreciate recommendations- s/p I&D on 07/24- cultures NGTD, no surgical intervention at this time - ID consulted, appreciate recommendations -- Discussed w/ Dr. Snyder recommendations IV Daptomycin x min of 7 days and Ciprofloxacin at discharge -- PICC/midline consent obtained, IV Daptomycin through line prior to discharge -- Script for IV Daptomycin daily x10 days and PRP, CBC, and CPK weekly while on IV Daptomycin given to CM to setup for discharge Acute hypoxemic respiratory failure, likely secondary to multifocal PNA vs aspiration pneumonitis, ?RIOS: - CT on 07/26- no evidence of PE, multifocal PNA vs aspiration pneumonitis - O2 protocol, wean as tolerated- does not wear O2 supplement at home- now on RA - DuoNeb PRN for SOB/wheezing - IV antibiotics as above x7 days- additional coverage w/ Cipro PO as above - Ambulation, OOB in chair, incentive spirometer - Recommend outpatient f/u for sleep study Mild hypokalemia- RESOLVED: Replace w/ PO KCL supplement, follow PRP and replace PRN CAD s/p cardiac stenting, HTN, HLD- STABLE: - Continue Toprol-XL, Losartan, ASA, Plavix, nitroglycerin PRN, and Atorvastatin - Cardiology consulted for surgical clearance, appreciate recommendations Hypothyroidism: Continue Synthroid Anxiety: Continue Zoloft DVT prophylaxis: Heparin SQ BID Code Status: LEVEL I, FULL Dispo: Discharge to home w/ [facility] I personally interviewed and examined the patient. I agree with history of present illness and physical exam mentioned above, I also performed my own history taking and examination. Past medical history and review of system has been obtained by myself I reviewed all pertinent labs and studies Reviewed current medications I discussed and formulated of the discharge summary mentioned above with JEVON Bower Please refer to the Summary mentioned below. General Appearance: not in acute distress Eyes: normal Sclerae, extraocular muscle intact ENT: hearing grossly normal Neck: supple Respiratory/Chest: normal air entry bilateral ,no respiratory distress, no accessory muscle use Cardiovascular: regular rate, rhythm, no murmur Abdomen: non tender, soft, no masses Extremities: no edema Neurologic/Psychiatric: Awake alert oriented times place and person moves all extremities sensation intact cranial nerves II-12 appear to be intact Skin: normal color, warm/dry, no rash 62 years old female with past medical history of hypothyroidism, coronary artery disease status post recent SARAH stent to the ED, hypertension, dyslipidemia presented to the ED right hand cellulitis failed outpatient antibiotics Sepsis/right hand abscess/cellulitis significantly improved Switch Vanco/Zosyn/clindamycin to daptomycin ID consult appreciated Dr. White/orthopedic consult appreciated Pain management No evidence of abscess or osteomyelitis by MRI Community-acquired multifocal pneumonia with hypoxemic respiratory failure, status post vancomycin and Zosyn completed course Improved after initiation of antibiotics Continue pulmonary toilet CAD/hypertension/dyslipidemia Continue home meds Was found today within acceptable stability for discharge to Travis Bustamante MD, [facility] hospitalist group Total Time Spent: Greater than 30 minutes This includes examination of the patient, discharge planning, medication reconciliation, and communication with other providers. Discharge Instructions Please refer to the electronic Patient Visit Report (Discharge Instructions) for additional information. Follow-Up Please follow-up with your PCP within 5-7 days Please follow-up with ID within 1 week Please follow-up/keep all of your subspecialty appointments Additional Copies To Carmen Flores C.R.N.P
--- NOTE | 2017-07-31 14:46 | Infectious Disease Progress Nt ---
Progress Note Date of Service Jul 31, 2017. Subjective Pt evaluation today including: conversation w/ patient, physical exam, chart review, lab review, review of studies, conversation w/ internal consultant, review of inpatient medication list Patient feeling better today. Less hand pain. Erythema improving. No fever. No problems with antibiotics. All Other Systems: Reviewed and Negative Medications Current Inpatient Medications Medications (Trade) Dose Ordered Sig/Ravin Route Start Time Stop Time Status Last Admin Dose Admin Magnesium Hydroxide (Milk Of Magnesia Susp) 30 ml Q6H PRN PO 07/24/17 12:45 08/23/17 12:44 Polyethylene (Miralax Powder Packet) 17 gm DAILY PRN PO 07/24/17 12:45 08/23/17 12:44 Ondansetron HCl (Zofran Inj) 4 mg Q6H PRN IV 07/24/17 12:45 08/23/17 12:44 Miscellaneous Information (Consult) 1 ea UD PRN N/A 07/24/17 12:45 08/23/17 12:44 Piperacillin Sod/ Tazobactam Sod 3.375 gm/Dextrose 115 ml @ 28.75 mls/ hr Q8H IV 07/24/17 16:00 08/03/17 15:59 07/31/17 08:15 28.75 MLS/HR Miscellaneous Information (Consult) 1 ea UD PRN N/A 07/24/17 12:45 08/23/17 12:44 Hydromorphone HCl (Dilaudid Inj) 0.5 mg Q3H PRN IV 07/24/17 12:45 08/07/17 12:44 07/30/17 07:27 0.5 MG Albuterol (Ventolin Hfa Inhaler) 2 puffs Q6H PRN INH 07/24/17 13:30 08/23/17 13:29 Aspirin (Ecotrin Tab) 81 mg QAM PO 07/25/17 09:00 08/24/17 08:59 07/31/17 09:25 81 MG Atorvastatin Calcium (Lipitor Tab) 80 mg QAM PO 07/25/17 09:00 08/24/17 08:59 07/31/17 09:25 80 MG Clopidogrel Bisulfate (plAVix TAB) 75 mg QAM PO 07/25/17 09:00 08/24/17 08:59 07/31/17 09:25 75 MG Levothyroxine Sodium (Synthroid Tab) 100 mcg DAILYBB PO 07/25/17 06:00 08/24/17 05:59 07/31/17 05:50 100 MCG Losartan Potassium (coZAAR TAB) 50 mg QAM PO 07/25/17 09:00 08/24/17 08:59 07/31/17 09:24 50 MG Multivitamins (Multivitamin Tab) 1 tab QAM PO 07/25/17 09:00 08/24/17 08:59 07/31/17 09:24 1 TAB Nitroglycerin (Nitrostat Tab) 0.4 mg UD PRN UT 07/24/17 13:30 08/23/17 13:29 Sertraline HCl (Zoloft Tab) 50 mg QAM PO 07/25/17 09:00 08/24/17 08:59 07/31/17 09:25 50 MG Vitamin B Complex/ Vit C/Folic Acid (Nephrocaps) 1 cap BID PO 07/24/17 21:00 08/23/17 20:59 07/31/17 09:25 1 CAP Ascorbic Acid (Vitamin C Tab) 1,000 mg QAM PO 07/25/17 09:00 08/24/17 08:59 07/31/17 09:26 1,000 MG Metoprolol Succinate (Toprol Xl Tab) 50 mg DAILY PO 07/25/17 09:00 08/24/17 08:59 07/31/17 09:24 50 MG Acetaminophen (Tylenol Tab) 650 mg Q6H PRN PO 07/24/17 19:15 08/23/17 19:14 07/31/17 00:54 650 MG Lactobacillus Acidophilus (Lactinex Granules Pack) 1 gm TIDM PO 07/26/17 08:30 08/25/17 08:29 07/31/17 12:59 1 GM Heparin Sodium (Porcine) (Heparin Sq 5000 Unit/0.5ml) 5,000 unit Q12 SQ 07/26/17 21:00 08/25/17 20:59 07/31/17 09:29 5,000 UNIT Albuterol/ Ipratropium (Duoneb) 3 ml Q2H PRN INH 07/26/17 13:15 08/25/17 13:14 Oxycodone HCl (Roxicodone Immediate Rel Tab) `1-2 tabs for pain 1 tab ... Q6H PRN PO 07/26/17 18:30 08/09/17 18:29 07/31/17 09:23 10 MG Vancomycin HCl 1250 mg/Sodium Chloride 275 ml @ 125 mls/hr Q10H IV 07/27/17 20:00 08/04/17 07:59 Future Hold 07/31/17 03:46 125 MLS/HR Ibuprofen (Motrin Tab) 600 mg TID PRN PO 07/30/17 11:00 08/29/17 10:59 07/31/17 07:47 600 MG Heparin Sodium (Porcine) (Heparin 10 Unit/ ml 5 ml Flush) 5 ml PRN PRN FLUSH 07/31/17 14:15 08/30/17 14:14 Objective Vital Signs Date Time Temp Pulse Resp B/P (MAP) Pulse Ox O2 Delivery O2 Flow Rate FiO2 07/31/17 07:50 Room Air 07/31/17 07:45 36.6 69 18 164/95 (118) 96 Room Air 07/31/17 03:40 36.8 07/30/17 23:35 37.1 69 18 132/77 (95) 93 Room Air 07/30/17 23:30 Room Air 07/30/17 15:50 37.0 63 18 130/75 (93) 93 Room Air 07/30/17 15:40 Room Air Physical Exam General Appearance: WD/WN, no apparent distress Eyes: normal inspection, EOMI, sclerae normal ENT: normal ENT inspection, pharynx normal Neck: supple, no adenopathy, trachea midline Respiratory/Chest: chest non-tender, lungs clear, normal breath sounds, no respiratory distress Cardiovascular: regular rate, rhythm, no gallop, no murmur Abdomen: normal bowel sounds, non tender, soft, no organomegaly Extremities: no calf tenderness, normal capillary refill Neurologic/Psychiatric: alert, oriented x 3 Skin: normal color, no rash, + pertinent finding (Cellulitis improving right hand and arm) Assessment and Plan Severe right hand and arm infection in the setting what appears to be a puncture of the right thumb with possible secondary pneumonia. Certainly has appearance of acute streptococcal infection, but given that she has cats, pasteurella and staph also possibility. Patient has responded well to current antibiotics, would recommend continuing IV therapy for at least 1 more week with daptomycin, and add oral ciprofloxacin to cover pasteurella.
[2017-07-31] MEDS ORDERED: CPR500 PO (14:52)
[2017-07-31 16:12] VITALS: BP 164/95; PULSE 69; TEMP 36.6; O2SAT 96
--- NOTE | 2017-07-31 16:23 | PROGRESS NOTE ---
DATE: 07/31/2017 SUBJECTIVE: A 62-year-old female admitted with a right hand infection. She is doing well. She made significant improvement over the past 24-48 hours. Much less pain. Finger is still pretty stiff. Not feeling ill. OBJECTIVE: VITAL SIGNS: Temperature 36.6. Vital signs stable. EXTREMITIES: Physical examination of her right hand reveals the swelling and redness to be markedly resolved. The redness is pretty much gone. She still has a little bit of purple blisters around her thumb area. She can flex and extend her fingers and do about 50% of the fist, but still is somewhat limited. There are no focal areas of fluctuance or abscess collection. All of her fingers are pretty much the same. Culture results, there have been no growth final. ASSESSMENT: A 62-year-old female with a pretty aggressive right upper extremity hand infection, slowly improving and markedly improved today. I do think she is significantly turned the corner. PLAN: Continue antibiotic management as per the infectious disease. There is no surgical indication. I do not anticipate there will be. She apparently is being discharged on IV antibiotics. She can follow up with her medical doctor or infectious diseases for her antibiotic management. I do not think she needs any orthopedic followup as there is no surgical indication. Any questions can be directed to me at [phone].
== END 2017-07-31 16:43 | disposition home health service (06) | DRG 871 ==
LOC: C.EDB 10:02 → C.3E 12:43 → ENRESERV 14:02
PROVIDERS: ADMIT Family Medicine; ATTEND Internal Medicine
PROC: 0H9FXZX Drainage of Right Hand Skin, External Approach, Diagnostic (ICD-10-PCS; 2017-07-24)
PROC: 02HV33Z Insertion of Infusion Device into Superior Vena Cava, Percutaneous Approach (ICD-10-PCS; principal; 2017-07-31)
DX: A41.9 Sepsis, unspecified organism (principal); J96.01 Acute respiratory failure with hypoxia; L03.113 Cellulitis of right upper limb; J18.9 Pneumonia, unspecified organism; J69.0 Pneumonitis due to inhalation of food and vomit; E78.5 Hyperlipidemia, unspecified; I25.10 Atherosclerotic heart disease of native coronary artery without angina pectoris; I10 Essential (primary) hypertension; M47.898 Other spondylosis, sacral and sacrococcygeal region; Z87.891 Personal history of nicotine dependence; Z88.2 Allergy status to sulfonamides; G47.33 Obstructive sleep apnea (adult) (pediatric); E87.6 Hypokalemia; F41.9 Anxiety disorder, unspecified; E03.9 Hypothyroidism, unspecified

== ENCOUNTER → 2017-08-08 | Outpatient (CLI) | payer BC ==
[~2017-08-08] MED LIST changes: -ALBUAER2 INH; +B-CO1CAP17 PO; -B-COCAP2 PO; -CEPH500C2 PO; +CPR500 PO; +DAPT500I IV; -DOXY100C76 PO; -HYDR-5688 PO; +METO-452 PO; -METO50TA16 PO; +MTR600 PO; -NAPR1TAB9 PO; +RXC5 PO; +VNTHFA/IN INH
[2017-08-08 18:16] LABS: BLOOD UREA NITROGEN 15 mg/dl (7-18); CALCIUM 9.8 mg/dl (8.5-10.1); CARBON DIOXIDE 25 mmol/L (21-32); CREATININE 1.05 mg/dl (0.60-1.20); GLUCOSE 108 mg/dl (70-99); HEMATOCRIT 35.8 % (37-47); HEMOGLOBIN 12.4 g/dL (12.0-16.0); MEAN CELL VOLUME 91.6 fL (80-100); MEAN CORPUSCULAR HEMOGLOBIN 31.7 pg (25-34); MEAN CORPUSCULAR HGB CONC 34.6 g/dl (32-36); MEAN PLATELET VOLUME 9.7 fL (7.4-10.4); PLATELET COUNT 515 K/uL (130-400); RED CELL DISTRIBUTION WIDTH CV 13.3 % (11.5-14.5); RED CELL DISTRIBUTION WIDTH SD 44.4 fL (36.4-46.3); SODIUM 134 mmol/L (136-145); WHITE BLOOD COUNT 9.01 K/uL (4.8-10.8)
== END | disposition home or self-care (01) ==
LOC: C.LABSPEC 09:43
PROVIDERS: ATTEND Internal Medicine Infectious Disease
DX: L03.113 Cellulitis of right upper limb (principal)

== ENCOUNTER → 2017-08-21 | Outpatient (CLI) | payer BC ==
[~2017-08-21] MED LIST changes: +GADAVIST IV PRN
--- NOTE | 2017-08-21 11:18 | DIAGNOSTIC IMAGING REPORT ---
R UPPER EXT NONJOINT COMBO CLINICAL HISTORY: RIGHT HAND CELLULITIS pain. Infection. TECHNIQUE: Multiaxial MRI acquisition COMPARISON STUDY: 07/24/2017 FINDINGS: Change in the appearance of the scan compared to the prior study. Patient has developed bone marrow edema involving distal row of carpal bones as well as a component of the distal navicular, and bases of the second through fifth metacarpals. This shows moderate postcontrast enhancement. In addition, there is evidence for moderate postcontrast enhancement throughout these regions of altered bone marrow signal. Generalized soft tissue edema persists. The enhanced component of the study shows several small microabscesses dorsal to the base of the third metacarpal as well as immediately adjacent to the ulnar styloid. These measure up to 8 mm at the base of the third metacarpal and 8 mm at The ulnar styloid. Findings of generalized cellulitis again are noted throughout all soft tissue structures. This is primarily seen dorsally. This appears slightly progressive compared to the prior exam. IMPRESSION: 1. Mildly progressive cellulitis throughout the hand and wrist primarily dorsally as compared to the prior exam. 2. Findings of interval abnormal signal characteristics of the distal row of carpal bones most significant at the capitate, although seen at all additional sites. 3. Abnormal signal characteristics bases of the second through fourth, and possibly fifth metacarpal raising the possibility of additional multiple foci of osteomyelitis. 4. Interval development of microabscesses adjacent to the base of the third metacarpal, as well as ulnar styloid. 5. Multifocal osteomyelitis is a diagnosis of exclusion, with etiologies such as reflex sympathetic dystrophy and/or disuse osteopenia secondary considerations. The above report was generated using voice recognition software. It may contain grammatical, syntax or spelling errors. Electronically signed by: Juan R Garrison M.D. 08/21/2017 11:17 AM Dictated Date/Time: 08/21/2017 11:03 AM
== END | disposition home or self-care (01) ==
LOC: C.MRIBC 09:01
PROVIDERS: ATTEND Internal Medicine Infectious Disease
DX: L03.011 Cellulitis of right finger (principal); L02.511 Cutaneous abscess of right hand; R93.7 Abnormal findings on diagnostic imaging of other parts of musculoskeletal system

== ENCOUNTER → 2017-11-10 | Outpatient (CLI) | payer BC ==
[~2017-11-10] MED LIST changes: -GADAVIST IV PRN; -METO-452 PO
[2017-11-10 13:12] LABS: BLOOD UREA NITROGEN 20 mg/dl (7-18); CREATININE 1.06 mg/dl (0.60-1.20)
== END | disposition home or self-care (01) ==
LOC: C.LAB1850 11:57
PROVIDERS: ATTEND Physician Assistant
DX: H69.80 Other specified disorders of Eustachian tube, unspecified ear (principal)

== ENCOUNTER → 2017-11-15 | Outpatient (CLI) | payer BC ==
[~2017-11-15] MED LIST changes: +GADAVIST IV PRN
--- NOTE | 2017-11-15 22:20 | DIAGNOSTIC IMAGING REPORT ---
BRAIN COMBO FOR IAC HISTORY: 62 years-old Female H69.80 ETD (eustachian tube dysfunction)Patient has left greater acute bilateral hearing dysfunction with recent acute respiratory infection COMPARISON: Brain MRI 02/18/2014 TECHNIQUE: Multiplanar multisequence MRI of the brain was obtained both with and without the use of 7.2 mL Gadavist utilizing institutional internal auditory canal protocol. FINDINGS: Continuous Miner Operator localizer images demonstrate no gross abnormality. There is no restricted diffusion to suggest acute or subacute infarction. Midline structures including the corpus callosum, brainstem, optic chiasm, pituitary and pineal glands appear unremarkable on the sagittal T1 series. There is no cerebellar tonsillar herniation. Mild degenerative changes about the imaged cervical spine. Minimal scattered areas of T2/FLAIR prolongation within the subcortical and periventricular white matter suggest mild chronic microvascular ischemic changes. No acute intracranial hemorrhage, midline shift, abnormal extra-axial collections, hydrocephalus or intracranial mass. Major flow voids at the level of the skull base appear patent. Bilateral orbits appear unremarkable. Large left and trace right mastoid effusions. Minimal mucosal thickening about the maxillary and ethmoid sinuses. The orbits, scalp and skull appear unremarkable. The cisternal portions of the bilateral 5th cranial nerves appear normal. No cerebellar pontine angle mass lesion. Anterior inferior cerebellar artery loops are noted extending into the bilateral internal auditory canals, extending into approximately 50% of the internal auditory on the left and less than 50% on the right. No mass lesions identified involving the internal auditory canals, 7th or 8th cranial nerves. There is no abnormal intra-axial or extra-axial enhancement identified. Postcontrast images are mildly motion degraded. IMPRESSION: 1. Mildly motion degraded exam without acute intracranial abnormality identified. No abnormal intra-axial or extra-axial enhancement. 2. Anterior inferior cerebellar artery vascular loop are noted involving the bilateral internal auditory canals as above. This finding has been reported to be associated with tinnitus. 3. Suggested mild chronic microvascular ischemic changes. 4. Large left and trace right mastoid effusions with mild paranasal sinus disease. The above report was generated using voice recognition software. It may contain grammatical, syntax or spelling errors. . Electronically signed by: Jerald Eduardo M.D. 11/15/2017 10:18 PM Dictated Date/Time: 11/15/2017 10:08 PM
== END | disposition home or self-care (01) ==
LOC: C.MRI 17:55
PROVIDERS: ATTEND Physician Assistant
DX: H69.80 Other specified disorders of Eustachian tube, unspecified ear (principal); M25.48 Effusion, other site; J32.9 Chronic sinusitis, unspecified

== ENCOUNTER → 2018-02-27 | Outpatient (CLI) | payer BC ==
[~2018-02-27] MED LIST changes: -B-CO1CAP17 PO; +B-COCAP2 PO; -GADAVIST IV PRN
--- NOTE | 2018-02-28 15:10 | MAMMOGRAPHY REPORT ---
BILATERAL DIGITAL SCREENING MAMMOGRAM TOMOSYNTHESIS WITH CAD: 02/27/2018 CLINICAL HISTORY: Routine screening. Patient has no complaints. TECHNIQUE: Breast tomosynthesis in addition to standard 2D mammography was performed. Current study w as also evaluated with a Computer Aided Detection (CAD) system. COMPARISON: Comparison is made to exams dated: 02/26/2017 mammogram, 02/17/2016 mammogram, 02/12/2015 ma mmogram, 02/20/2013 mammogram, 02/20/2012 mammogram, and 02/06/2011 mammogram - [facility]. BREAST COMPOSITION: The tissue of both breasts is heterogeneously dense, which may obscure small mass es. FINDINGS: No suspicious masses, calcifications, or areas of architectural distortion are noted in either breast . There has been no significant interval change compared to prior exams. There are stable post surgi yulia changes in the right 12:00 breast from prior surgical excision. Bilateral benign-appearing calci fications are not significantly changed. IMPRESSION: ACR BI-RADS CATEGORY 2: BENIGN There is no mammographic evidence of malignancy. A 1 year screening mammogram is recommended.( 019) The patient will receive written notification of the results. Some breast cancers are not detected with mammography. A negative mammographic report should not brooke y biopsy if a clinically suggestive mass is present. Estefania Chavarria M.D. /:02/27/2018 15:30:40 Billiard Table Mechanic: RT Lucero(Esvin)(M), [facility] letter sent: Normal 1/2 BI-RADS Code: ACR BI-RADS Category 2: Benign
== END | disposition home or self-care (01) ==
LOC: C.MAMM 11:39
PROVIDERS: ATTEND Nurse Practitioner
DX: Z12.31 Encounter for screening mammogram for malignant neoplasm of breast (principal)

== ENCOUNTER 2024-09-23 05:37 | Observation (INO) ==
--- NOTE | 2024-08-26 12:23 | PAT Medication Instructions ---
Medication Instructions Date of Service August 26, 2024 Home Medications Medication Instructions Recorded albuterol sulfate 90 mcg/actuation 2 puffs inhalation .COMPLEX PRN 01/11/19 aerosol inhaler shortness of breath or wheezing #18 grams atorvastatin 80 mg tablet See Rx Instructions .Route 09/03/23 .COMPLEX #90 tabs metoprolol succinate 50 mg 50 mg PO DAILY #90 tabs 10/18/23 tablet,extended release 24 hr nitroglycerin 0.4 mg sublingual 0.4 mg sublingual Q5M PRN chest 10/19/23 tablet pain #20 tabs sertraline 100 mg tablet 50 mg (1/2 x 100 mg) PO DAILY #135 02/08/24 tabs doxazosin 4 mg tablet 12 mg (3 x 4 mg) PO DAILY #270 tabs 03/17/24 omeprazole 20 mg capsule,delayed 20 mg PO DAILY #90 caps 08/04/24 release olmesartan 40 mg tablet 40 mg PO DAILY #90 tabs 08/18/24 clopidogrel 75 mg tablet 75 mg PO DAILY #90 tabs 08/21/24 hydrocodone 5 mg-acetaminophen 325 1 tab PO BID PRN pain #40 tabs 08/21/24 mg tablet levothyroxine 100 mcg tablet 100 mcg PO DAILY #90 tabs 08/21/24 albuterol sulfate 90 mcg/actuation aerosol inhaler 2 puffs inhalation .COMPLEX PRN shortness of breath or wheezing multivitamin 1 tab PO DAILY vitamin B complex (B Complex-Vitamin B12 tablet) 1 tab PO DAILY ascorbic acid (vitamin C) 1,000 mg tablet 1 gm PO DAILY aspirin 81 mg tablet 81 mg PO DAILY hydroxychloroquine 200 mg tablet 200 mg PO QPM cyclosporine 0.05 % eye drops in a dropperette (Restasis) 1 drops ophthalmic (eye) DAILY atorvastatin 80 mg tablet See Rx Instructions .Route .COMPLEX metoprolol succinate 50 mg tablet,extended release 24 hr 50 mg PO DAILY nitroglycerin 0.4 mg sublingual tablet 0.4 mg sublingual Q5M PRN chest pain sertraline 100 mg tablet 50 mg (1/2 x 100 mg) PO DAILY doxazosin 4 mg tablet 12 mg (3 x 4 mg) PO DAILY naproxen sodium 220 mg tablet (Flanax (naproxen)) 440 mg PO QAM omega-3 fatty acids 1,000 mg capsule 2,000 mg PO DAILY omeprazole 20 mg capsule,delayed release 20 mg PO DAILY olmesartan 40 mg tablet 40 mg PO DAILY clopidogrel 75 mg tablet 75 mg PO DAILY hydrocodone 5 mg-acetaminophen 325 mg tablet 1 tab PO BID PRN pain levothyroxine 100 mcg tablet 100 mcg PO DAILY tramadol 50 mg tablet 50 mg PO QPM PRN Pain Continue as directed nitroglycerin 0.4 mg sublingual tablet 0.4 mg sublingual Q5M PRN chest pain (if needed) ASK your surgeon for instructions naproxen sodium 220 mg tablet (Flanax (naproxen)) 440 mg PO QAM ASK your prescriber and surgeon aspirin 81 mg tablet 81 mg PO DAILY hydroxychloroquine 200 mg tablet 200 mg PO QPM clopidogrel 75 mg tablet 75 mg PO DAILY (From anesthesia perspective, clopidogrel/Plavix needs to be stopped 7 days before surgery. Please check if okay with doctor that prescribes this to you) STOP taking 2 weeks before surgery (or as soon as possible if surgery is within 2 weeks) omega-3 fatty acids 1,000 mg capsule 2,000 mg PO DAILY DO NOT take the morning of surgery multivitamin 1 tab PO DAILY vitamin B complex (B Complex-Vitamin B12 tablet) 1 tab PO DAILY ascorbic acid (vitamin C) 1,000 mg tablet 1 gm PO DAILY olmesartan 40 mg tablet 40 mg PO DAILY Take morning of surgery With a small sip of water, OTHERWISE NOTHING TO EAT OR DRINK AFTER MIDNIGHT: albuterol sulfate 90 mcg/actuation aerosol inhaler 2 puffs inhalation .COMPLEX PRN shortness of breath or wheezing (use if needed; please bring rescue inhaler with you to hospital day of surgery if possible) cyclosporine 0.05 % eye drops in a dropperette (Restasis) 1 drops ophthalmic (eye) DAILY metoprolol succinate 50 mg tablet,extended release 24 hr 50 mg PO DAILY sertraline 100 mg tablet 50 mg (1/2 x 100 mg) PO DAILY doxazosin 4 mg tablet 12 mg (3 x 4 mg) PO DAILY omeprazole 20 mg capsule,delayed release 20 mg PO DAILY hydrocodone 5 mg-acetaminophen 325 mg tablet 1 tab PO BID PRN pain (if needed) levothyroxine 100 mcg tablet 100 mcg PO DAILY tramadol 50 mg tablet 50 mg PO QPM PRN Pain (if needed) Take evening before surgery albuterol sulfate 90 mcg/actuation aerosol inhaler 2 puffs inhalation .COMPLEX PRN shortness of breath or wheezing (if needed) atorvastatin 80 mg tablet See Rx Instructions .Route .COMPLEX hydrocodone 5 mg-acetaminophen 325 mg tablet 1 tab PO BID PRN pain (if needed) tramadol 50 mg tablet 50 mg PO QPM PRN Pain (if needed) Other Notes If you have any questions please call us at [phone] or [phone] or [phone] or [phone]
--- NOTE | 2024-09-04 14:07 | Anesthesiology Consultation ---
Date of Service September 04, 2024 Assessment & Plan (1) Encounter for pre-operative examination: - Patient is overdue to see [facility] cardiology, did have stress testing done 02/2024 without evidence of ischemia. Case discussed in detail with Dr. Zavala who advised patient is acceptable to proceed. - Outpatient joint assessment: Patient is currently scheduled for inpatient pathway. If re-evaluated and patient/surgeon requests outpatient pathway, patient is not ideal candidate for outpatient joint program. Chart Review Chart Review: Acceptable Risk for Surgery and Patient NOT seen in Pre Admission Testing History Surgery Operation Date: 09/23/24 12:25 Proposed Procedures p Right Total Hip Arthroplasty - Austyn White MD Height/Weight Height: 5 ft 3 in Weight: 80.2 kg Allergies Allergy/AdvReac Type Severity Reaction Status Date / Time nickel Allergy Unknown SKIN Verified 08/25/24 11:06 IRRITATION Sulfa (Sulfonamide Allergy Unknown PT DOESN'T Verified 08/25/24 11:06 Antibiotics) REMEMBER REACTION lisinopril AdvReac Mild COUGH Verified 08/25/24 11:06 Medications Home Medications Medication Instructions Recorded Confirmed Last Taken albuterol sulfate 90 mcg/actuation 2 puffs inhalation .COMPLEX PRN 01/11/19 08/25/24 Unknown aerosol inhaler shortness of breath or wheezing #18 grams multivitamin 1 tab PO DAILY 01/11/19 08/25/24 Unknown vitamin B complex (B 1 tab PO DAILY 01/11/19 08/25/24 Unknown Complex-Vitamin B12 tablet) ascorbic acid (vitamin C) 1,000 mg 1 gm PO DAILY 05/19/19 08/25/24 Unknown tablet aspirin 81 mg tablet 81 mg PO DAILY 05/19/19 08/25/24 Unknown hydroxychloroquine 200 mg tablet 200 mg PO QPM 05/19/19 08/25/24 Unknown cyclosporine 0.05 % eye drops in a 1 drops ophthalmic (eye) DAILY 05/22/19 08/25/24 Unknown dropperette (Restasis) atorvastatin 80 mg tablet See Rx Instructions .Route 09/03/23 08/25/24 Unknown .COMPLEX #90 tabs metoprolol succinate 50 mg 50 mg PO DAILY #90 tabs 10/18/23 08/25/24 Unknown tablet,extended release 24 hr nitroglycerin 0.4 mg sublingual 0.4 mg sublingual Q5M PRN chest 10/19/23 08/25/24 Unknown tablet pain #20 tabs sertraline 100 mg tablet 50 mg (1/2 x 100 mg) PO DAILY #135 02/08/24 08/25/24 Unknown tabs doxazosin 4 mg tablet 12 mg (3 x 4 mg) PO DAILY #270 tabs 03/17/24 08/25/24 Unknown naproxen sodium 220 mg tablet 440 mg PO QAM 03/24/24 08/25/24 Unknown (Flanax (naproxen)) omega-3 fatty acids 1,000 mg 2,000 mg PO DAILY 04/28/24 08/25/24 Unknown capsule omeprazole 20 mg capsule,delayed 20 mg PO DAILY #90 caps 08/04/24 08/25/24 Unknown release olmesartan 40 mg tablet 40 mg PO DAILY #90 tabs 08/18/24 08/25/24 Unknown clopidogrel 75 mg tablet 75 mg PO DAILY #90 tabs 08/21/24 08/25/24 Unknown hydrocodone 5 mg-acetaminophen 325 1 tab PO BID PRN pain #40 tabs 08/21/24 08/25/24 Unknown mg tablet levothyroxine 100 mcg tablet 100 mcg PO DAILY #90 tabs 08/21/24 08/25/24 Unknown Past Medical History Medical History (Updated 09/05/24 @ 08:46 by Muna Mcgee PA-C) CAD (coronary artery disease) s/p stent 2014 Chronic low back pain PATRICIO (generalized anxiety disorder) History of bursitis right hip History of COVID-19 (2021) x 2, 2019 and 2021; no hosp; resolved HTN (hypertension) Hx of bronchitis reason for inhaler- very rare use Hyperlipidemia Hypothyroidism Idiopathic polyneuropathy Long-term use of hydroxychloroquine Osteoarthritis Paresthesia of both lower extremities Pre-diabetes denies Presence of stent in artery 2014 Scoliosis deformity of spine Sjogren syndrome Spinal stenosis at L4-L5 level Patient denies h/o stroke, seizures, heart failure, blood clots/DVTs or blood transfusions. Exercise / Class Metabolic Activity III < 4 Walking/Shop/Light housework (ambulates with rolling walker, denies ches t discomfort or shortness of breath with usual activities) Past Family History Family History Aunt Breast cancer Father Heart disease Sister Myocardial infarction Denies family history of Ovarian cancer Prostate cancer Colorectal cancer Past Surgical History Surgical History (Updated 09/05/24 @ 08:48 by Muna Mcgee PA-C) Hx of breast biopsy right-benign Hx of cardiac catheterization 2015 abnormal stress/echo- X 1 [facility] Hx of colonoscopy Hx of prior ablation treatment lumbar (L4-L5) Past Anesthesia History No Hx of Anesthesia Complications and No Family Hx of Anesthesia Complications History of PONV No Hx of PONV and No Hx of Motion Sickness Social History Smoking Status: Former smoker Do You Dip or Chew Tobacco: No Smoking End Date: QUIT 32 YRS AGO Hx Alcohol Use: Yes Alcohol type: wine and hard liquor alcohol intake frequency: 0-2 drinks per day Hx Substance Use: No substance use type: does not use Review of Systems Snoring, denies witnessed apneas. Patient denies chest pain, shortness of breath, dyspnea on exertion, reflux, fever, chills, cough, wheezing, or palpitations. Physical Exam Vital Signs Vitals BP 138/67 P 90 TEMP 98.1 SP02 94% on RA RESP 18 Physical Patient resting comfortably in chair in no acute distress, alert and oriented, responding appropriately throughout visit Full cervical extension range of motion without pain TMD 3.5 finger breadths Mallampati Score 2 Dentition: several front upper implants and crowns, denies chipped or loose teeth, caps or bridges Lungs: normal respiratory effort. Good air movement, clear throughout to auscultation, no adventitious breath sounds Cardiac: regular rate and rhythm, no murmurs noted Carotid arteries: negative bruit bilat Lab Results Anesthesia Preop Results Results Anesthesia Widget: WBC 5.00 K/ul (4.8-10.8) 09/04/24 Hgb 12.9 g/dl (12.0-16.0) 09/04/24 Hct 36.9 % (37.0-47.0) L 09/04/24 Plt 189 K/uL (130-400) 09/04/24 Na 136 mmol/L (136-145) 09/04/24 K 4.5 mmol/L (3.5-5.1) 09/04/24 Cl 101 mmol/L (98-107) 09/04/24 CO2 31 mmol/L (21-32) 09/04/24 BUN 16 mg/dl (6-23) 09/04/24 Creat 1.04 mg/dl (0.6-1.2) 09/04/24 Glucose Level 99 mg/dl (70-99(Fasting)) 09/04/24 PT 10.2 Seconds (9.0-12.0) 09/04/24 PTT 26 Seconds (21-31) 09/04/24 INR 0.9 (0.9-1.1) 09/04/24 Blood Type O Positive 09/04/24 Antibody Screen NEGATIVE 09/04/24 Testing Electrocardiogram Date: 09/04/24 NSR, rate 73 bpm Nonspecific T wave abnormality Chest X-Ray Date: 09/04/24 No acute findings. Stress Test Date: 03/07/24 MPHR 85% METS 6.6 Negative exercise stress echo and ECG for ischemia EF 60% Normal resting LV size and wall motion Mild cLVH Mild mitral regurgitation
--- NOTE | 2024-09-19 17:44 | History & Physical Report ---
Date of Service September 19, 2024 Assessment & Plan (1) Arthritis of right hip: 69-year-old female with a long history of hip and back problems with markedly progressive hip arthritis over the past 6 months. She has failed conservative measures. He have to use a walker to get around. She is ready to have her hip fixed. Plan: Will going to take her to the operating room and do a right total hip replacement. The risks Mente this procedure explained and she understands. Informed consent was obtained. She knows this is not going to fix her back problems. I do think it can help her significantly. He is planned to stay in the hospital overnight and discharge postoperative day 1. She will need to hold her Plavix 7 days preop. She is planned to be discharged to home using the [facility]. Will use Plavix, RICKY stockings, SCDs for DVT prophylaxis. (2) Scoliosis deformity of spine: (3) Lumbosacral spondylosis: (4) Spinal stenosis of lumbar region: (5) GERD (gastroesophageal reflux disease): (6) Pre-diabetes: (7) Hypertension: (8) Hypercholesterolemia: History of Present Illness Chief Complaint: . Persistent, progressive right hip pain. Primary Care Provider: DAVID Gibson . The patient is a 69-year-old female who referred by Dr. Siddiqi for treatment of her hip. She got a long history of back problems and treated at pain clinic. She recently had an ablation of her back. Over the past several months she has developed increased pain discomfort in the right hip. He is actually resorted to using a cane to get around. Describes lateral hip pain groin pain and thigh pain. The more she walks the more she limps. Pain is gradually gotten worse. She did have an intra-articular injection which helped her for couple days Netspot hip. She is ready to have her hip fixed. Allergies Allergy/AdvReac Type Severity Reaction Status Date / Time nickel Allergy Unknown SKIN Verified 08/25/24 11:06 IRRITATION Sulfa (Sulfonamide Allergy Unknown PT DOESN'T Verified 08/25/24 11:06 Antibiotics) REMEMBER REACTION lisinopril AdvReac Mild COUGH Verified 08/25/24 11:06 Home Medications Medication Instructions Recorded Confirmed Type albuterol sulfate 90 mcg/actuation 2 puffs inhalation .COMPLEX PRN 01/11/19 08/25/24 Rx aerosol inhaler shortness of breath or wheezing #18 grams multivitamin 1 tab PO DAILY 01/11/19 08/25/24 History vitamin B complex (B 1 tab PO DAILY 01/11/19 08/25/24 History Complex-Vitamin B12 tablet) ascorbic acid (vitamin C) 1,000 mg 1 gm PO DAILY 05/19/19 08/25/24 History tablet aspirin 81 mg tablet 81 mg PO DAILY 05/19/19 08/25/24 History hydroxychloroquine 200 mg tablet 200 mg PO QPM 05/19/19 08/25/24 History cyclosporine 0.05 % eye drops in a 1 drops ophthalmic (eye) DAILY 05/22/19 08/25/24 History dropperette (Restasis) metoprolol succinate 50 mg 50 mg PO DAILY #90 tabs 10/18/23 08/25/24 Rx tablet,extended release 24 hr nitroglycerin 0.4 mg sublingual 0.4 mg sublingual Q5M PRN chest 10/19/23 08/25/24 Rx tablet pain #20 tabs sertraline 100 mg tablet 50 mg (1/2 x 100 mg) PO DAILY #135 02/08/24 08/25/24 Rx tabs doxazosin 4 mg tablet 12 mg (3 x 4 mg) PO DAILY #270 tabs 03/17/24 08/25/24 Rx naproxen sodium 220 mg tablet 440 mg PO QAM 03/24/24 08/25/24 History (Flanax (naproxen)) omega-3 fatty acids 1,000 mg 2,000 mg PO DAILY 04/28/24 08/25/24 History capsule omeprazole 20 mg capsule,delayed 20 mg PO DAILY #90 caps 08/04/24 08/25/24 Rx release olmesartan 40 mg tablet 40 mg PO DAILY #90 tabs 08/18/24 08/25/24 Rx clopidogrel 75 mg tablet 75 mg PO DAILY #90 tabs 08/21/24 08/25/24 Rx hydrocodone 5 mg-acetaminophen 325 1 tab PO BID PRN pain #40 tabs 08/21/24 08/25/24 Rx mg tablet levothyroxine 100 mcg tablet 100 mcg PO DAILY #90 tabs 08/21/24 08/25/24 Rx atorvastatin 80 mg tablet See Rx Instructions .Route 09/16/24 Rx .COMPLEX #90 tabs Past Med/Surg History Problem List (Updated 09/19/24 @ 17:42 by Austyn White MD) Arthritis of right hip Encounter for pre-operative examination Bursitis of right hip Scoliosis deformity of spine Long-term use of hydroxychloroquine Paresthesia of both lower extremities Lumbosacral spondylosis Lumbosacral facet joint syndrome Spinal stenosis of lumbar region GERD (gastroesophageal reflux disease) Pre-diabetes Lumbar radiculopathy Idiopathic polyneuropathy Radicular pain of lower extremity Sjogren's syndrome (Chronic) followed by rheumatology Chronic low back pain (Chronic) Subclinical hypothyroidism (Chronic) Reflex sympathetic dystrophy (Chronic) Presence of stent in artery Neuropathic pain (Acute) Left asymmetrical SNHL (Acute) Hypertension (Chronic) Hypercholesterolemia (Chronic) Generalized anxiety disorder (Chronic) Chronic hand pain CAD (coronary artery disease) (Acute) Medical History History of bursitis right hip Spinal stenosis at L4-L5 level CAD (coronary artery disease) s/p stent 2014 Presence of stent in artery 2014 Chronic low back pain Idiopathic polyneuropathy Paresthesia of both lower extremities Long-term use of hydroxychloroquine PATRICIO (generalized anxiety disorder) Hyperlipidemia HTN (hypertension) Hypothyroidism Hx of bronchitis reason for inhaler- very rare use Osteoarthritis History of COVID-19 (2021) x 2, 2020 and 2021; no hosp; resolved Pre-diabetes denies Sjogren syndrome Scoliosis deformity of spine Surgical History Hx of prior ablation treatment lumbar (L4-L5) Hx of colonoscopy Hx of cardiac catheterization 2015 abnormal stress/echo- X 1 stent - [facility] Hx of breast biopsy right-benign Family History Aunt Breast cancer Father Heart disease Sister Myocardial infarction Denies family history of Ovarian cancer Prostate cancer Colorectal cancer Social History Smoking Status: Former smoker Tobacco Type: Cigarettes Age Started Using Tobacco: 17; Age Quit Using Tobacco: 37; packs per day: 0.5; Smoking End Date: QUIT 32 YRS AGO; Second Hand Exposure: No; Do You Dip or Chew Tobacco: No; Tobacco Cessation Education Requested by Patient: No Hx Alcohol Use: Yes Alcohol type: wine and hard liquor Alcohol Intake Fr equency: Monthly or Less Hx Substance Use: No Preferred Language: Tamazight Communication Ability: Effective Visual Impairment: Limited Hearing Ability: Normal Fashion Buyer Required: No Beliefs That Will Affect Care: None marital status: Current Living Situation: Spouse current occupational status: employed and retired 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 Physical Exam . Physical examination reveals a pleasant middle-age female. She ambulates with the significantly antalgic gait. Comes using a walker. She got marked pain with any type of hip motion. Leg lengths are pretty equal. She can internally rotate to neutral but is painful. No knee effusion. She is neurologically intact. Constitutional WD/WN, vitals as above Neck trachea midline, no thyromegaly Respiratory normal respiratory effort, lungs clear to auscultation Cardiovascular RRR, no murmur, no edema Gastrointestinal (Abdomen) normal bowel sounds, soft, nontender, no hepatosplenomegaly Results & Data Results & Data Laboratory Results . Diagnostic Findings . X-rays of the hips were reviewed. She has advanced right hip arthritis. She got complete loss of the joint space. She got collapse of the femoral head. This is part remarkably progressed even just over the past 4 months. X-rays lumbar spine were also reviewed. She had pretty significant degenerative changes of her lumbar spine with degenerative scoliosis PG Care Time/CCT Total # of Minutes Spent Total Time Spent with Patient: Total time spent is greater than 50% in coordination of care (as documented) at patient's floor/unit and/or counseling patient: Coding Level of Care Code None Diagnoses Arthritis of right hip M16.11 Scoliosis deformity of spine M41.9 Lumbosacral spondylosis M47.817 Spinal stenosis of lumbar region M48.061 Gastroesophageal reflux disease without esophagitis K21.9 Esophagitis presence: without esophagitis Pre-diabetes R73.03 Primary hypertension I10 Hypertension type: primary hypertension Hypercholesterolemia E78.00 (5) GERD (gastroesophageal reflux disease) Esophagitis presence: without esophagitis Qualified Code(s): K21.9 - Gastro- esophageal reflux disease without esophagitis (7) Hypertension Hypertension type: primary hypertension Qualified Code(s): I10 - Essential (primary) hypertension
[2024-09-23] MEDS: LR 500ML BOLUS, THEN 15ML/HR IV SCH (06:17)
[2024-09-23] MEDS: LR 60ML/HR IV SCH (06:17)
[2024-09-23] MEDS: ACETAMINOPHEN 500 MG TAB PO SCH ×2 (06:18→14:34)
[2024-09-23] MEDS: CeleBREX 200 MG CAP PO SCH (06:18)
[2024-09-23] MEDS: METOCLOPRAMIDE HCL 10 MG TABLET PO SCH (06:18)
[2024-09-23] MEDS: FAMOTIDINE 20 MG TAB PO SCH (06:18)
[2024-09-23] MEDS: dexAMETHasone**PF** 10 MG/ML VIAL IV SCH (06:18)
[2024-09-23] MEDS ORDERED: BUPIVACAINE 0.5 % 5 MG/1 ML PF 10ML VIAL ONE (06:19)
[2024-09-23] MEDS ORDERED: ONDANSETRON INJ 2 MG/ML 2 ML VIAL IV PRN ×2 (06:35→10:07)
[2024-09-23] MEDS ORDERED: ATROPINE SULFATE 0.1 MG/ML 10ML SYR IV PRN (06:35)
[2024-09-23] MEDS ORDERED: ePHEDrine sulfate 50 MG/ML AMP IV PRN (06:35)
[2024-09-23] MEDS ORDERED: fentaNYL citrate PF 100 MCG/2 ML VIAL IV PRN (06:35)
[2024-09-23] MEDS ORDERED: MIDAZOLAM HCL 1 MG/ML 2ML VIAL ONE (06:40)
[2024-09-23] MEDS ORDERED: PROPOFOL IV EMULSION 10 MG/ML 20 ML VIAL IV ONE ×2 (06:43→06:46)
[2024-09-23] MEDS ORDERED: LIDOCAINE 2% 2 ML VIAL/AMP(20MG/ML) INFIL ONE (06:43)
[2024-09-23] MEDS ORDERED: ONDANSETRON INJ 2 MG/ML 2 ML VIAL ONE (06:43)
--- NOTE | 2024-09-23 06:43 | History & Physical Bridge Note ---
Date of Service September 23, 2024 History & Physical Bridge Note I have examined the patient, reviewed the History & Physical and in the interval since the performance of the History & Physical I have noted the following changes of clinical significance: no changes noted
[2024-09-23] MEDS: TRANEXAMIC ACID 1,000 MG **IV Pre-op IV SCH (06:45)
[2024-09-23] MEDS: ceFAZolin 2000MG 2,000 MG/15 ML SYR IV SCH ×2 (06:59→14:34)
[2024-09-23] MEDS: BUPIVACAINE/EPINEPHRINE 0.5% MPF 1:200,000 30 ML VIAL ONE (08:12)
--- NOTE | 2024-09-23 08:41 | Operative Report ---
PG Post Operative Report Pre & Post Diagnosis Operation Date: 09/23/24 07:00 Pre-Op Diagnosis: Right hip osteoarthritis Post-Op Diagnosis: Right hip osteoarthritis I identified the patient and participated in the time-out.: Yes Procedure Operation Date: 09/23/24 07:00 Actual Procedures p Right Total Hip Arthroplasty(Right) - Austyn White MD Surgeon Austyn White MD Solid Waste Manager Mike Rush PA-C Estimated Blood Loss 100 Findings Consistent with Post-Op Diagnosis Specimens Right femoral head sent for pathology. Anesthesia Type Spinal MAC Complications none Disposition Accompanied Patient To Recovery: No Indications Patient is a 69-year-old female who said a history of gradually progressive increasing right hip pain discomfort is gotten significantly worse over the past year. She has been through extensive conservative treatment which became less effective over time. X-rays and clinical exam showed progressive hip arthritis. She failed conservative measures. She elected proceed with total hip arthroplasty. Of note, the patient does have a history of chronic back pain and she was fully aware that this is not going to fix her back and buttock issues. Description of Procedure Operative implants consist of: 1. Biomet G7 size 52 mm acetabular shell. 2. 6.5 cancellous acetabular screws 1 at 35 mm length and 1 of 30 mm length. 3. [place] hole construction job cost estimator. 4. Highly cross-linked polyethylene liner with a 52 mm outer diameter, 36 mm inner diam with a wiggins placed inferior and posterior. 5. DePuy Corail size 10 KLA femoral stem. 6. +5/36 mm ceramic articular ball. The patient was taken the operating, identified, placed on the operating table in the supine position. All conductors were appropriately padded. IV antibiotics fibra anesthesia team. A spinal anesthetic had been implemented holding area. Quintanilla catheter was placed in sterile fashion. The patient was then placed in the left lateral cubitus position. An axillary roll was placed per distal Birkett position was used for positioning. The right hip and leg were then prepped and draped in usual sterile fashion. A posterolateral approach to the right hip was then performed through a curvilin ear incision centered over the greater trochanter. Sharp dissection Through subcutaneous tissue dental of the IT band gluteal fascia. The IT band gluteal fascia was sized longitudinally in line with skin incision. The underlying greater bursa was excised. The piriformis and external rotators along with the posterior hip joint capsule then released from the posterior aspect the hip as a single layer. The hip was internally rotated and dislocated. A femoral neck osteotomy cut was made with a Final Cut about 14 mm above the lesser trochanter. Femoral head was removed and sent for pathology. The femur was retracted anteriorly. Attention drawn the acetabulum. The acetabular labrum was excised. The pulmonary fat was excised. Sequential reaming the acetabular was then performed beginning with a size 45 and progressing up to a 51. I reamed a little bit with a 52 reamer and then placed a 52 mm acetabular shell in about 20 degrees of anteversion and 40 degrees lateral opening. It was fixed with two 6.5 screws. Some small anterior osteophytes removed. A trial liner was placed. Attention drawn the femur. The proximal femur was entered with a Rome2rio cutter followed by canal finder. I then broached beginning with size 8 and progressing up to a 10. Get excellent fit of the tendon I could not quite get this the whole way down. We then trialed the hip and the +5 articular ball seen recreate appropriate leg lengths, soft tissue tension, and was fully stable in full extension and external rotation and flexion to 90 degrees internal rotation over [address] I elected to place these implants. All trial implants were removed. An apex hole construction job cost estimator was placed. Highly cross-linked polyethylene liner was placed. We did place a liner with a wiggins inferior and posterior to maximize her stability in flexion. A size 10 KLA femoral stem was impacted in position. That was left about a millimeter proud. A +5/36 mm ceramic articular ball was placed. Hip was located once again found to be stable. Attention drawn toward closing. The wounds irrigated coconuts of pulsatile lavage solution. We did inject locally with 60 cc of half percent Marcaine with epinephrine. We did use a Betadine soak. The wound was once again irrigated. The posterior capsule and external rotators then repaired through drill holes in the posterior trochanter with #2 Tycron suture. The IT band gluteal fascia was then closed in 1 PDS suture in a running fashion the subcutaneous tissues then closed with 2 layers with deep layer #2 Vicryl suture in the subcutaneous tissues with 2-0 Dexon suture in a buried interrupted fashion. Skin was closed skin ric. Leg was then cleaned and dried and a Prevena VAC dressing was applied due to the fairly thick soft tissue subcutaneous envelope. The patient was then taken off the OR bed, placed back on the transport cart and transported to the recovery room in stable condition. Patient tolerated procedure well and there were no complicat ions. Mike Rush, my physician clinical project assistant, was present for the entire procedure. His assistance was essential and required for appropriate patient positioning, prepping and draping, surgical exposure, performing the technical details of the operation, placement the implants, closure of the wound, and placement of the sterile bandage. I attest to the content of the Intraoperative Record and any orders documented therein. Any exceptions are noted below.
--- NOTE | 2024-09-23 08:52 | XRay Report ---
XR hip 1V RT w pelvis CLINICAL HISTORY: IN PACU - Post Surgical COMPARISON: None FINDINGS: Right hip prosthesis shows no hardware complication. There is expected soft tissue gas. Sk in ric are present laterally. IMPRESSION: Unremarkable postoperative exam. ACT 112: Negative or not required by law. Electronically signed by: Ankit Hankins M.D. 09/23/2024 8:51 AM
[2024-09-23] MEDS ORDERED: MULTIVITAMIN TAB PO SCH (10:07)
[2024-09-23] MEDS ORDERED: GLUCOSE 40% GEL 15 GM TUBE PO PRN (10:07)
[2024-09-23] MEDS ORDERED: DEXTROSE 50% 50 ML SYRINGE IV PRN (10:07)
[2024-09-23] MEDS ORDERED: bisacodyL 10 MG SUPP PR PRN (10:07)
[2024-09-23] MEDS ORDERED: PHARMACY GLYCEMIC MGMT CONSULT PRN (10:07)
[2024-09-23] MEDS ORDERED: MAGNESIUM HYDROXIDE SUSP 30 ML UDC PO PRN (10:07)
[2024-09-23] MEDS ORDERED: ALBUTEROL HFA 8 GM INHALER INH PRN (10:07)
[2024-09-23] MEDS ORDERED: ONDANSETRON 4 MG OD TAB PO PRN (10:07)
[2024-09-23] MEDS ORDERED: NO NSAIDS SCH (10:07)
[2024-09-23] MEDS ORDERED: GLUCOSE 10 TAB/TUBE PO PRN (10:07)
[2024-09-23] MEDS ORDERED: CARBOHYDRATES FOR HYPOGLYCEMIA PO PRN (10:07)
[2024-09-23] MEDS ORDERED: GLUCAGON FOR INJ 1 MG VIAL SQ PRN (10:07)
[2024-09-23] MEDS ORDERED: NALOXONE HCL 0.4 MG/1 ML VIAL/CARP IV PRN (10:07)
[2024-09-23] MEDS ORDERED: METOCLOPRAMIDE HCL INJ 5 MG/ML 2 ML VIAL IV PRN (10:07)
[2024-09-23] MEDS ORDERED: NITROGLYCERIN SL 0.4 MG/TAB TAB SL PRN (10:07)
[2024-09-23] MEDS ORDERED: ALUMINUM/MAGNESIUM SUSP 30 ML UDC PO PRN (10:07)
[2024-09-23] MEDS ORDERED: ARTIFICIAL TEARS OP PRN (11:32)
[2024-09-23] MEDS ORDERED: SENNA 8.6 MG TAB PO SCH (11:45)
[2024-09-23] MEDS: DOCUSATE SODIUM 100 MG CAP PO SCH (11:59)
[2024-09-23] MEDS: ASPIRIN 81 MG ECTAB PO SCH (11:59)
[2024-09-23] MEDS: ASCORBIC ACID 500 MG TAB PO SCH (11:59)
[2024-09-23] MEDS: VITAMIN B COMPLEX TAB PO SCH (12:00)
[2024-09-23] MEDS: PANTOprazole 40 MG TAB PO SCH (12:00)
[2024-09-23] MEDS: DOXAZosin MESYLATE 4 MG TAB PO SCH (12:00)
[2024-09-23] MEDS: MULTIVITAMIN TAB PO SCH (12:01)
[2024-09-23] MEDS: METOPROLOL SUCC 50MG EXT REL TAB PO SCH (12:01)
[2024-09-23] MEDS: OMEGA-3 (PURIFIED FISH OIL) 1 GM CAP PO SCH (12:01)
[2024-09-23] MEDS: INSULIN ASPART PER UNIT CHARGE SC SCH (12:02)
[2024-09-23] MEDS: LOSARTAN POTASSIUM 50 MG TAB PO SCH (12:02)
[2024-09-23] MEDS: LEVOTHYROXINE SODIUM 100 MCG TABLET PO SCH (12:02)
[2024-09-23] MEDS: SERTRALINE HCL 50 MG TABLET PO SCH (12:02)
--- NOTE | 2024-09-23 13:02 | Anesthesiology Progress Note ---
Date of Service September 23, 2024 Anesthesia Post Procedure Vital Signs Vital Signs: Temp Pulse Pulse Resp BP BP Pulse Ox 09/23/24 12:15 36.3 C L 61 16 124/59 L 98 09/23/24 11:14 36.5 C 48 L 16 127/78 99 09/23/24 10:45 36.5 C 54 L 18 126/76 98 09/23/24 10:15 09/23/24 10:15 36.4 C L 55 L 18 144/81 H 99 09/23/24 09:50 57 L 14 127/68 94 09/23/24 09:40 52 L 17 118/58 L 97 09/23/24 09:30 54 L 14 128/67 96 09/23/24 09:20 52 L 12 140/60 98 09/23/24 09:10 36.3 C L 52 L 16 131/58 L 97 09/23/24 09:00 52 L 14 130/65 98 09/23/24 08:50 57 L 16 127/54 L 95 09/23/24 08:40 55 L 18 113/70 97 09/23/24 08:30 36.6 C 52 L 16 122/58 L 97 09/23/24 05:55 09/23/24 05:55 37 C 73 18 131/67 95 O2 Del Method O2 Flow Rate 09/23/24 12:15 Nasal Cannula 2 09/23/24 11:14 Nasal Cannula 2 09/23/24 10:45 Nasal Cannula 2 09/23/24 10:15 Nasal Cannula 2 09/23/24 10:15 Nasal Cannula 2 09/23/24 09:50 Nasal Cannula 2 09/23/24 09:40 Nasal Cannula 2 09/23/24 09:30 Nasal Cannula 2 09/23/24 09:20 Nasal Cannula 2 09/23/24 09:10 Oxymask 2 09/23/24 09:00 Oxymask 2 09/23/24 08:50 Oxymask 2 09/23/24 08:40 Oxymask 3 09/23/24 08:30 Oxymask 6 09/23/24 05:55 Room Air 09/23/24 05:55 Room Air Pain Intensity Right Hip: Pain Intensity: 3 Transfer of Care Handoff Completed per policy Notes Mental Status: alert / awake / arousable and participated in evaluation Patient Amnestic to Procedure: Yes Nausea / Vomiting: adequately controlled Pain: adequately controlled Airway Patency, RR, SpO2: stable & adequate BP & HR: stable & adequate Hydration State: stable & adequate Neuraxial Anesthesia: was administered and sensory block is resolving Anesthetic Complications: no major complications apparent and Pt Satisfied with anesthetic care
[2024-09-23] MEDS: TRANEXAMIC ACID / 0.7% NACL 1,000 MG/100 ML BAG IV SCH (14:30)
[2024-09-23] MEDS: oxyCODONE HCL IR 5 MG TAB (IMMEDIATE RELEASE) PO PRN (14:34)
--- NOTE | 2024-09-23 14:42 | Pharmacy Report ---
Pharmacy Glycemic Short Note 2 - Date of Service September 23, 2024 - Glycemic Short BSG Results (Last 24 hours): 09/23/24 11:33 POC Glucose 131 H OUTPATIENT ANTIDIABETIC REGIMEN: * N/A * A1c pending ASSESSMENT: * Patient with history of pre-diabetes, not currently on anti-diabetes medications admitted following R total hip arthroplasty * Patient received 10 mg IV dexamethasone preop- will monitor for hyperglycemia in setting of steroids, hold basal for now * Start novolog with weight stress of 2 CF, stress of 1 carb ratio. PLAN FOR INPATIENT GLYCEMIC CONTROL: * Basal insulin * hold * Bolus insulin * NovoLog per scale ACHS or Q6hrs while NPO * Goal Range: Low 110 mg/dL - High 140 mg/dL * Correction Factor: 30 mg/dL/unit * Nutritional / Prandial insulin per carb ratio of 1 unit per 18 grams CHO consumed
[2024-09-23] MEDS ORDERED: ASCORBIC ACID 500 MG TAB PO SCH (17:00)
[2024-09-23] MEDS: HYDROmorphone INJ 0.5 MG/0.5 ML SYR IV PRN (19:23)
[2024-09-23] MEDS: SENNA 8.6 MG TAB PO SCH (21:49)
[2024-09-23] MEDS: HYDROXYCHLOROQUINE SULFATE 200 MG TAB PO SCH (21:49)
[2024-09-24 06:27] LABS: Basophils # (auto) 0.01 K/uL (0.00-0.20); Basophils % (auto) 0.1 %; Eosinophils # (auto) 0.01 K/uL (0.00-0.50); Eosinophils % (auto) 0.1 %; Hematocrit (blood only) 33.1 % (37.0-47.0); Hemoglobin 11.7 g/dl (12.0-16.0); Immature Granulocytes # (auto) 0.03 K/uL (0.01-0.20); Immature Granulocytes % (auto) 0.4 %; Lymphocytes # (auto) 1.33 K/uL (1.20-3.40); Lymphocytes % (auto) 16.1 %; Mean Corpuscular Hemoglobin 32.5 pg (25.0-34.0); Mean Corpuscular Hgb Conc 35.3 g/dL (32.0-36.0); Mean Corpuscular Volume 91.9 fL (80.0-100.0); Mean Platelet Volume 9.8 fL (9.4-12.4); Monocytes # (auto) 1.18 K/uL (0.11-0.59); Monocytes % (auto) 14.3 %; Platelet Count 201 K/uL (130-400); RDW Coefficient of Variation 11.8 % (11.5-14.5); RDW Standard Deviation 39.3 fL (36.4-46.3); White Blood Count 8.26 K/ul (4.8-10.8)
[2024-09-24 06:36] LABS: BUN Creatinine Ratio 16.1 (10-20); Calcium 9.3 mg/dl (8.6-10.3); Creatinine Clr Calc Pharmacy 57.9 ml/min; Potassium 3.6 mmol/L (3.5-5.1)
--- NOTE | 2024-09-24 09:10 | Orthopedic Progress Note ---
Date of Service September 24, 2024 Assessment & Plan (1) S/P total right hip arthroplasty: She was seen and examined by Dr. White today. Pain controlled PT/OT, wbat, total hip precautions. Will see how therapy goes today. Plan for discharge home with home health after therapy DVT prophylaxis: teds, scd's, plavix Prevena vac dressing can remain in place until POD7. Follow up with Dr. White 2-3 weeks post op. Subjective . 69 year old patient POD 1 from right rachel. Had some pain last night when getting out of bed, but otherwise, pain seems reasonably controlled. Review of Systems All systems reviewed & are unremarkable except as noted in HPI & below. Physical Exam .alert and oriented. NAD. VSS Right leg: Prevena vac dressing intact and appears to be functioning appropriately. Hip appears located. Able to dorsiflex and plantarflex. NVI Results & Data Results & Data Laboratory Results . Diagnostic Findings . PG Care Time/CCT Total # of Minutes Spent Total Time Spent with Patient: Total time spent is greater than 50% in coordination of care (as documented) at patient's floor/unit and/or counseling patient: Coding Level of Care Code 17995 Post Operative Follow-Up Diagnoses S/P total right hip arthroplasty Z96.641
[2024-09-24] MEDS: CLOPIDOGREL BISULFATE 75 MG TAB PO SCH (09:21)
[2024-09-24 20:18] VITALS: TEMP 98.8
[2024-09-25 00:48] VITALS: O2SAT 94
[2024-09-25 07:12] VITALS: RESP 18
--- NOTE | 2024-09-25 07:30 | Orthopedic Progress Note ---
Date of Service September 25, 2024 Assessment & Plan (1) S/P total right hip arthroplasty: Plan: 69-year-old female postop day 2 from a right total hip arthroplasty. She seems to be doing a bit better this morning. She is neurologically intact. Her hip is located. Plan: 1. DVT prophylaxis. Teds, SCD, and she is back on her Plavix. 2. PT/OT. Weight-bear as tolerated to right total hip protocol. 3. Pain control. Doing okay with current pain regimen. 4. Disposition. Plan is to discharge to home with some home health if she does okay in therapy today Admission and Anticipated Discharge Date Admission Date: September 23, 2024 Subjective 69-year-old female now postop day 2 from right hip arthroplasty. She seems to be doing a little bit better today. Got a little bit dizzy and lightheaded yesterday when getting up and around. Pains controlled. No chest pain or shortness of breath. Physical Exam Physical Exam: Physical nation is a pleasant middle-age female. As she is lying in bed looks pretty comfortable this morning. Examination of the right hip and leg reveals the Prevena VAC dry dressing to be in place. Her leg lengths are equal. Thigh is soft and supple. She is neurologically intact. Results & Data Vital Signs (Past 12 Hours) Vital Signs Temp Pulse Pulse Resp BP BP Pulse Ox 09/25/24 07:05 37.1 C 90 18 150/71 H 94 09/25/24 00:47 84 20 111/61 94 09/24/24 20:17 37.1 C 69 18 115/64 95 O2 Del Method 09/25/24 07:05 Room Air 09/25/24 00:47 Room Air 09/24/24 20:17 Room Air
[2024-09-25 09:18] VITALS: BP 111/61; PULSE 84
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
== END 2024-09-25 10:41 | disposition home health service (06) ==
LOC: 3E 05:37 → ASU 05:37
DX: Z88.2 Allergy status to sulfonamides; Z79.82 Long term (current) use of aspirin; M84.451A Pathological fracture, right femur, initial encounter for fracture; I25.10 Atherosclerotic heart disease of native coronary artery without angina pectoris; Z95.5 Presence of coronary angioplasty implant and graft; Z79.899 Other long term (current) drug therapy; M16.11 Unilateral primary osteoarthritis, right hip; Z79.890 Hormone replacement therapy; R73.03 Prediabetes; Z88.8 Allergy status to other drugs, medicaments and biological substances; Z87.891 Personal history of nicotine dependence; Z86.16 Personal history of COVID-19